=== PATIENT | female | born 1955 | race African-American/Black ===

== ENCOUNTER 2018-06-15 16:28 | Inpatient (IN) | payer MEDICARE, MEDICAID ==
[2018-06-15 17:04] LABS: Base Excess-Venous -2.1 mmol/L (0 (+/- 2.5)); Bicarbonate (HCO3v) 24.5 mmol/L (1.0-85.0); CO2 Tension (PvCO2) 48.4 mmHg (41.0-51.0); Calcium, Ionized 1.48 mmol/L (1.12-1.32); Hemoglobin - Calc 13.8 g/dL (12.0-18.0); Lactate 1.54 mmol/L (0.50-2.20); O2 Tension (PvO2) 55.6 mmHg (35.0-45.0); Potassium 3.6 mmol/L (3.4-4.7); pH (Venous) 7.313 (7.35-7.45); vO2 Saturation-calc 85.4 % (94-98)
[2018-06-15 17:11] LABS: #Basophils 0.1 thou/uL (0.0-0.2); #Eosinphils 0.1 thou/uL (0.0-0.7); #Lymphocytes 1.9 thou/uL (1.20-3.40); #Monocytes 0.3 thou/uL (0.11-0.59); #Neutrophils 3.5 thou/uL (1.40-6.50); %Basophils 0.8 % (0.0-1.0); %Lymphocytes 32.2 % (21.0-51.0); %Monocytes 5.5 % (0.0-10.0); %Neutrophils 59.5 % (42.0-75.0); Hemoglobin 12.8 g/dL (12.0-16.0); Mean Corpuscular HGB CONC 32.7 g/dL (32.0-36.0); Mean Corpuscular Hemoglobin 30.7 pg (27.0-31.0); Mean Corpuscular Volume 93.7 fL (78.0-98.0); Mean Platelet Volume 9.5 fL (7.4-10.4); Platelet Count 223 thou/uL (130-400); RBC Distribution Width 12.9 % (11.5-14.5); Red Blood Cell (RBC) Count 4.19 mill/uL (4.20-5.40); White Blood Cell (WBC) Count 5.9 thou/uL (4.8-10.8)
--- NOTE | 2018-06-15 17:18 | RAD ---
PORTABLE UPRIGHT FRONTAL CHEST RADIOGRAPH: 06/15/18 COMPARISON: 02/26/15 HISTORY: Respiratory distress, shortness of breath. FINDINGS: When compared to the 02/26/15 examination, there is focal increased density in the right perihilar re gion which may signify vascular dilation/engorgement and/or right hilar mass. There is a multilead tr ansvenous AICD inserted via the left sided approach. The cardiac silhouette is prominent. Midline pati rnotomy wires are present. There is hazy air space disease noted in the right lung base/right costoph renic angle, progressed since the prior exam. IMPRESSION: 1. Prominent cardiac silhouette with midline sternotomy wires and transvenous AICD. 2. Focal opacity in right perihilar region may represent vascular structures or underlying right hilar mass. 3. Air space disease noted in right lung base which may signify infectious pneumonitis or aspira tion. Underlying right basilar mass is a possibility. Recommend PA and lateral chest imaging followin g treatment. If opacities persist in the right base and perihilar region, a CT examination would then be advised to assess for a possible underlying neoplastic process. Code T POS: [facility]
[2018-06-15 17:26] LABS: ALT (SGPT) 108 U/L (8-55); AST (SGOT) 142 U/L (5-34); Albumin 3.9 g/dL (3.4-4.8); Alkaline Phosphatase 177 U/L (40-150); Anion Gap 12 mmol/L (10-20); BUN (Urea Nitrogen) 25 mg/dL (9.8-20.1); Bilirubin, Total 0.7 mg/dL (0.2-1.2); Calc. Creatinine Clearance 0 mL/min (70-130); Calcium 10.5 mg/dL (7.8-10.44); Carbon Dioxide 23 mmol/L (23-31); Chloride 110 mmol/L (98-107); Estimated GFR-MDRD 51; Globulin 2.9 g/dL (2.4-3.5); Glucose 164 mg/dL (80-115); Potassium 3.7 mmol/L (3.5-5.1); Protein, Total 6.8 g/dL (6.0-8.3); Sodium 141 mmol/L (136-145)
[2018-06-15 18:21] LABS: CKMB 4.4 ng/mL (0-6.6); Troponin I 0.082 ng/mL (< 0.028)
[2018-06-15] MEDS ORDERED: Furosemide 40 MG/4 ML VIAL ONE (19:23)
[2018-06-15] MEDS ORDERED: Piperacillin/Tazobactam 4.5 GM VIAL ONE (19:23)
[2018-06-15] MEDS ORDERED: Ondansetron PF 4 MG/2 ML Vial IVP PRN (20:14)
[2018-06-15] MEDS ORDERED: Acetaminophen 325 MG TAB PO PRN (20:14)
[2018-06-15] MEDS ORDERED: Ondansetron ODT 4 MG TAB SL PRN (20:14)
[2018-06-15] MEDS ORDERED: Vancomycin HCl 1 GM in Premix Bag 1 BAG IVPB SCH (20:15)
[2018-06-15 21:23] LABS: Troponin I 0.072 ng/mL (< 0.028)
[2018-06-15 21:42] VITALS: BMI 33.5
[2018-06-15 23:45] LABS: Troponin I 0.071 ng/mL (< 0.028)
[2018-06-16] MEDS ORDERED: HumaLOG 300 UNITS/3 ML VIAL SC PRN (10:40)
[2018-06-16] MEDS ORDERED: Dextrose 5% in Water 1,000 ML IV PRN (10:40)
[2018-06-16] MEDS ORDERED: Dextrose 50% Abboject 50 ML SYRINGE IVP PRN (10:40)
[2018-06-16] MEDS ORDERED: Furosemide 40 MG/4 ML VIAL SLOW IVP SCH (10:45)
[2018-06-16] MEDS: Cefepime 1 GM in Sodium Chloride 0.9% 100 ML IVPB SCH ×2 (17:34→22:56)
[2018-06-16] MEDS: metFORMIN 500 MG TAB PO SCH (17:34)
--- NOTE | 2018-06-16 17:45 | RAD ---
FRONTAL AND LATERAL IMAGING OF THE CHEST: 06/16/2018 HISTORY: Congestive heart failure. COMPARISON: 06/15/2018 FINDINGS: The cardiac silhouette is enlarged. Midline sternotomy wires and a multilead AICD is again seen. Th ere is pulmonary vascular congestion, similar when compared to the prior exam. There is hazy density in the right lung base, slightly improved. No large volume pleural effusion. IMPRESSION: Enlarged cardiac silhouette with pulmonary vascular congestion and hazy density in the right base. F indings suggest pulmonary edema. Infectious pneumonitis in the right lung base cannot be excluded. Follow-up imaging to full resolution advised. POS: [facility]
[2018-06-16] MEDS: Atorvastatin Calcium 40 MG TAB PO SCH (21:00)
[2018-06-16] MEDS: guaiFENesin ER 600 MG TAB PO SCH (21:00)
[2018-06-16] MEDS: Carvedilol 3.125 MG TAB PO SCH (21:00)
[2018-06-16] MEDS: Insulin Glargine 14 UNITS in Pre-Filled Syringe 1 EACH SC SCH (21:01)
--- NOTE | 2018-06-16 23:00 | HP ---
DATE OF ADMISSION: 06/15/2018 CHIEF COMPLAINT: Shortness of breath. HISTORY OF PRESENT ILLNESS: Ms. Gale is a 63-year-old -Citizen Of [place] female with past medical history of hypertension, diabetes mellitus, coronary artery disease, CHF, came because of worsening shortness of breath. Patient states she has been feeling bad for about 4 days and she was having shortness of breath and some chest tightness, going on for 4 days that got worse yesterday. To the point, she could not breathe. She claims she is taking all her medications. She did not have any nausea or vomiting. No diaphoresis, no headache, no dizziness. She also had some cough, productive with whitish sputum , but no fever. So, patient came to the emergency room, where she was evaluated , found to be in CHF, received a dose of Lasix. She also was suspected to have some infiltrate in the right lung. She received a dose of Levaquin, vancomycin , and Zosyn. Patient states she was recently in the hospital at [facility]. Currently, patient feels better. PAST MEDICAL HISTORY: 1. Chronic ischemic cardiomyopathy with decreased LV function with ejection fraction of 20%, status post AICD placement in January 2015. History of nonsustained ventricular tachycardia. 2. Diabetes mellitus. 3. Hypertension. 4. Hyperlipidemia. 5. Status post CVA. 6. Coronary artery disease, status post coronary artery bypass graft. 7. History of tobacco abuse. 8. History of nephrolithiasis, status post ureteral stents. 9. History of myocardial infarction. PAST SURGICAL HISTORY: 1. Status post ureteral stents for nephrolithiasis. 2. Status post AICD placement. 3. Status post coronary artery bypass graft. 4. Status post hysterectomy. ALLERGIES: No known drug allergies. CURRENT MEDICATIONS: Patient is on aspirin 81 mg daily, Lipitor 40 mg daily, Coreg 3.125 b.i.d., Lasix 40 mg b.i.d., Mucinex 600 b.i.d., Imdur 20 mg daily, lisinopril 2.5 mg daily, metformin 500 b.i.d., sertraline 50 mg daily, spironolactone 25 mg daily. FAMILY HISTORY: Nothing of interest. SOCIAL HISTORY: She lives with family. No history of smoking. No history of alcohol abuse. REVIEW OF SYSTEMS: Cardiovascular: Has chest tightness and shortness of breath. Respiratory: No fever. Has cough, productive of white sputum. Gastrointestinal: No nausea, vomiting, abdominal pain. Genitourinary: No dysuria or hematuria. Central nervous system: No headache, no dizziness. PHYSICAL EXAMINATION: GENERAL: The patient is alert, awake, oriented x3. VITAL SIGNS: Temperature 98, pulse 90, respirations 20, blood pressure 130/80. HEENT: Head is normocephalic, atraumatic. Pupils are equal and reactive to light. Nasopharynx is pale and dry. Hard and soft palate, no lesions seen. SKIN: Skin turgor decreased. NECK: Supple. No JVD. LUNGS: Breath sounds diminished bilaterally, percussion to dull bilaterally. Basilar rales present. HEART: S1, S2 regular. ABDOMEN: Soft. No distention, no tenderness. Normal bowel sounds. RECTAL: Deferred. CENTRAL NERVOUS SYSTEM: No focal deficits. LABORATORY DATA AND X-RAY FINDINGS: CBC shows WBC 5.9, hemoglobin 12, hematocrit 39, platelets 203. Metabolic panel: Sodium 140, potassium 3.7, chloride 110, CO2 of 23, BUN 26, creatinine 1.2, glucose 164. BNP was 3099. CK -MB is 4.4. Troponin I is 0.08. EKG shows ventricular pacemaker rhythm. Chest x-ray shows CHF changes as well as focal opacity in the right perihilar region and air space disease in the right lung base. ASSESSMENT: 1. Congestive heart failure, acute exacerbation, rule out myocardial infarction. 2. Possible right hilar mass. 3. Right lung base airspace disease. 4. Diabetes mellitus. 5. Hypertension. 6. Status post cerebrovascular accident. 7. Status post automatic implantable cardioverter defibrillator. 8. Coronary artery disease, status post stent. PLAN: 1. Vital signs q.4 hours. 2. Activity: As tolerated. 3. Allergies: NKDA. 4. Diet ADA, cardiac 5. Troponin I q.6 hours x2. 6. Continue home medications. 7. Accu-Chek before meals and at bedtime. Sliding scale mildly with regular insulin. 8. Lasix 40 mg IVP daily. 9. Echocardiogram. 10. We will repeat a chest x-ray, PA and lateral. [facility]
[2018-06-17 05:14] LABS: #Eosinphils 0.1 thou/uL (0.0-0.7); #Lymphocytes 1.3 thou/uL (1.20-3.40); #Monocytes 0.5 thou/uL (0.11-0.59); #Neutrophils 4.5 thou/uL (1.40-6.50); %Basophils 0.6 % (0.0-1.0); %Eosinophils 1.9 % (0.0-10.0); %Lymphocytes 20.8 % (21.0-51.0); %Monocytes 7.1 % (0.0-10.0); %Neutrophils 69.6 % (42.0-75.0); Hemoglobin 12.1 g/dL (12.0-16.0); Mean Corpuscular HGB CONC 31.7 g/dL (32.0-36.0); Mean Corpuscular Volume 94.5 fL (78.0-98.0); Mean Platelet Volume 9.8 fL (7.4-10.4); Platelet Count 207 thou/uL (130-400); RBC Distribution Width 13.1 % (11.5-14.5); Red Blood Cell (RBC) Count 4.04 mill/uL (4.20-5.40); White Blood Cell (WBC) Count 6.4 thou/uL (4.8-10.8)
[2018-06-17 05:21] LABS: Anion Gap 13 mmol/L (10-20); BUN (Urea Nitrogen) 34 mg/dL (9.8-20.1); Calc. Creatinine Clearance 69 mL/min (70-130); Calcium 10.3 mg/dL (7.8-10.44); Carbon Dioxide 22 mmol/L (23-31); Chloride 108 mmol/L (98-107); Estimated GFR-MDRD 44; Glucose 126 mg/dL (80-115); Potassium 4.1 mmol/L (3.5-5.1); Sodium 139 mmol/L (136-145)
[2018-06-17] MEDS: Cefepime 1 GM in Sodium Chloride 0.9% 100 ML IVPB SCH ×4 (05:21→23:36)
[2018-06-17] MEDS: metFORMIN 500 MG TAB PO SCH ×2 (08:26→17:23)
[2018-06-17] MEDS: Spironolactone 25 MG TAB PO SCH (08:26)
[2018-06-17] MEDS: Isosorbide Mononitrate 20 MG TAB PO SCH (08:26)
[2018-06-17] MEDS: Carvedilol 3.125 MG TAB PO SCH ×2 (08:27→21:34)
[2018-06-17] MEDS: Insulin Glargine 14 UNITS in Pre-Filled Syringe 1 EACH SC SCH ×2 (08:27→21:34)
[2018-06-17] MEDS: guaiFENesin ER 600 MG TAB PO SCH ×2 (08:27→21:34)
[2018-06-17] MEDS ORDERED: Lisinopril 2.5 MG TAB PO SCH (09:00)
[2018-06-17] MEDS ORDERED: Furosemide 40 MG/4 ML VIAL SLOW IVP SCH (09:00)
[2018-06-17] MEDS: Atorvastatin Calcium 40 MG TAB PO SCH (21:33)
[2018-06-18] MEDS: Cefepime 1 GM in Sodium Chloride 0.9% 100 ML IVPB SCH (05:33)
[2018-06-18] MEDS: metFORMIN 500 MG TAB PO SCH ×2 (08:20→17:45)
[2018-06-18] MEDS: Spironolactone 25 MG TAB PO SCH (08:20)
[2018-06-18] MEDS: Isosorbide Mononitrate 20 MG TAB PO SCH (08:21)
[2018-06-18] MEDS: guaiFENesin ER 600 MG TAB PO SCH ×2 (08:21→21:28)
[2018-06-18] MEDS: Furosemide 40 MG/4 ML VIAL SLOW IVP SCH ×2 (08:21→14:23)
[2018-06-18] MEDS: Carvedilol 3.125 MG TAB PO SCH ×2 (08:21→21:28)
[2018-06-18] MEDS: Insulin Glargine 14 UNITS in Pre-Filled Syringe 1 EACH SC SCH ×2 (08:26→21:28)
--- NOTE | 2018-06-18 10:12 | CON ---
CARDIOLOGY CONSULTATION DATE OF CONSULTATION: 06/17/2018 PRIMARY MINE CAPTAIN: Dr. Salvador. REASON FOR CONSULTATION: Congestive heart failure and ventricular tachycardia. HISTORY OF PRESENT ILLNESS: Ms. Shira Gale is a pleasant 63-year-old woman with long history of bucky nary artery disease and systolic heart failure, admitted with difficulty breathing. Ms. Gale states that she has been having progressive trouble breathing the last few days, associated with some tightn ess in her chest, but it got a lot worse yesterday. Finally, she went to the emergency room and was found to be in congestive heart failure. She received intravenous Lasix, also thought that she may h ave pneumonia. She has also been started on antibiotics. PAST MEDICAL HISTORY: She has a history of coronary artery disease and has had defibrillator placed as well. The patient, in 2006, had an acute anterior infarction, underwent placement of a [place] 3.0 x 24 mm stent by [employer] position clerk in 08/2017. She presented with chest pain with [address] elevation in the anteroseptal leads. She had emergent stent placement. Later that hospitalizati on, she underwent bypass x5, internal mammary to the LAD, radial to the diagonal, saphenous vein chris t to the obtuse marginal, vein graft to the distal right coronary and right posterior descending in s equence, ejection fraction of 25%. Postoperatively, she did remarkably well. Later, she was followe d for some time by a position clerk in [place]. OUTPATIENT MEDICATIONS: 1. Atorvastatin 40 mg daily. 2. Lisinopril 2.5 mg a day. 3. Aspirin 81 mg a day. 4. Carvedilol 3.125 mg twice a day. 5. Spironolactone 25 mg daily. 6. Lasix 40 mg twice a day. 7. Metformin. 8. Isosorbide. ALLERGIES: None known. SOCIAL HISTORY: No alcohol or tobacco abuse. FAMILY HISTORY: Negative for heart disease at a young age. PHYSICAL EXAMINATION: GENERAL: A pleasant 63-year-old woman in no distress. VITAL SIGNS: Her blood pressure 116/82, pulse 86 regular. HEENT: Eyes, sclerae nonicteric. Mouth, mucous membranes moist. NECK: Supple. No lymphadenopathy. LUNGS: Clear. No wheezing, rales, or rhonchi. CARDIAC: Normal S1, normal S2. There is no murmur, rub, or gallop. ABDOMEN: Obese, nontender. No hepatosplenomegaly. EXTREMITIES: Warm, dry. No clubbing, no cyanosis, no edema. HEMATOLOGIC: No unusual bruising. SKIN: Warm and dry. PERTINENT LABORATORY AND X-RAY FINDINGS: Hemoglobin is 12.1, creatinine is 1.46. Troponin levels we re indeterminate 0.082. Probably related to the heart failure, chest x-ray shows pulmonary vascular congestion. ASSESSMENT: 1. Congestive heart failure, systolic, acute on chronic. 2. Renal insufficiency/renal failure stage 3, estimated GFR is 41. 3. Nonsustained ventricular tachycardia. 4. Previous defibrillator implantation. PLAN: 1. Consideration for changing to Entresto may be a good drug for her. She should be able to obtain it, I believe throught Medicaid. We will stop lisinopril, would need to wait a couple of days until that started. Cannot use SNOW inhibitors with Entresto. 2. Continue intravenous diuretics.
--- NOTE | 2018-06-18 10:21 | CT ---
CT CHEST NONCONTRAST: History: Cough, congestion. Comparison: 02-22-15 FINDINGS: There is re-demonstration of a serpiginous hypodensity which occupies the lower right hemithorax with surrounding pleural based thickening. Adjacent areas of linear parenchymal density indicative of sca r, as well as adjacent prominent pulmonary vessels. This finding is stable to 02-22-15 exam which demo nstrates nearly 3.5 years of size stability which favors a benign process. There is no significant ef fusion or evidence of discrete pneumothorax. Cardiac chambers are enlarged and there is a left side p acing device present with evidence of prior sternotomy. The unenhanced imaged upper abdomen reveals no obvious acute process. Osseous structures are intact. IMPRESSION: Stable serpentine region of opacification of the inferior right hemithorax with greater than 3 years of stability, favoring a benign process. The morphology of this finding favors a vascular process and given the persistent, hypodensity, and absence of obvious enhancement on the prior exam this could r elate to a thrombosed pulmonary varis. A neoplasm is considered less likely given absence of discerna ble growth over the interval time frame. If there is clinical suspicion, as a precautionary measure, a PET CT could be performed to exclude the presence of hypermetabolic activity. POS: OLMAN
[2018-06-18 12:11] LABS: Anion Gap 13 mmol/L (10-20); BUN (Urea Nitrogen) 29 mg/dL (9.8-20.1); Calc. Creatinine Clearance 76 mL/min (70-130); Calcium 10.5 mg/dL (7.8-10.44); Carbon Dioxide 28 mmol/L (23-31); Chloride 106 mmol/L (98-107); Estimated GFR-MDRD 48; Glucose 95 mg/dL (80-115); Potassium 3.8 mmol/L (3.5-5.1); Sodium 143 mmol/L (136-145)
[2018-06-18] MEDS ORDERED: Cefepime 1 GM in Sodium Chloride 0.9% 100 ML IVPB SCH (13:00)
[2018-06-18] MEDS: Atorvastatin Calcium 40 MG TAB PO SCH (21:28)
[2018-06-18] MEDS: Amoxicillin/Potassium Clav 875 MG TAB PO SCH (21:28)
[2018-06-19 05:44] LABS: ALT (SGPT) 43 U/L (8-55); AST (SGOT) 14 U/L (5-34); Albumin 3.6 g/dL (3.4-4.8); Alkaline Phosphatase 127 U/L (40-150); Anion Gap 11 mmol/L (10-20); BUN (Urea Nitrogen) 24 mg/dL (9.8-20.1); Bilirubin, Total 0.9 mg/dL (0.2-1.2); Calc. Creatinine Clearance 90 mL/min (70-130); Calcium 10.4 mg/dL (7.8-10.44); Carbon Dioxide 28 mmol/L (23-31); Chloride 104 mmol/L (98-107); Cholesterol 186 mg/dl (< 200 Desired); Estimated GFR-MDRD 62; Globulin 2.8 g/dL (2.4-3.5); Glucose 76 mg/dL (80-115); HDL Cholesterol 46 mg/dL (>60 Neg Risk); LDL Cholesterol, Calculated 119 mg/dL; Potassium 3.7 mmol/L (3.5-5.1); Protein, Total 6.4 g/dL (6.0-8.3); Sodium 139 mmol/L (136-145); Triglycerides 106 mg/dL (Less than 150)
[2018-06-19] MEDS: Furosemide 40 MG/4 ML VIAL SLOW IVP SCH ×2 (08:07→13:29)
[2018-06-19] MEDS: Insulin Glargine 14 UNITS in Pre-Filled Syringe 1 EACH SC SCH (08:07)
[2018-06-19] MEDS: metFORMIN 500 MG TAB PO SCH ×2 (08:08→16:59)
[2018-06-19] MEDS: Spironolactone 25 MG TAB PO SCH (08:08)
[2018-06-19] MEDS: Isosorbide Mononitrate 20 MG TAB PO SCH (08:08)
[2018-06-19] MEDS: guaiFENesin ER 600 MG TAB PO SCH (08:08)
[2018-06-19] MEDS: Amoxicillin/Potassium Clav 875 MG TAB PO SCH (08:08)
[2018-06-19] MEDS: Carvedilol 3.125 MG TAB PO SCH (08:09)
[2018-06-19] MEDS ORDERED: Sacubitril 24.5 MG/Valsartan 25.5 MG TABLET PO SCH (09:00)
[2018-06-19 11:58] VITALS: TEMP 98.1
[2018-06-19 17:22] VITALS: BP 103/70
[2018-06-19] MEDS ORDERED: Atorvastatin Calcium 40 MG TAB PO SCH (21:00)
== END 2018-06-19 18:43 | disposition home or self-care (01) | DRG 291 ==
LOC: ERS 16:28 → 2NO 19:11
PROVIDERS: ADMIT Internal Medicine; ATTEND Internal Medicine
DX: I13.0 Hypertensive heart and chronic kidney disease with heart failure and stage 1 through stage 4 chronic kidney disease, or unspecified chronic kidney disease (principal); I50.23 Acute on chronic systolic (congestive) heart failure; J18.9 Pneumonia, unspecified organism; I47.2 Ventricular tachycardia; N18.3 Chronic kidney disease, stage 3 (moderate); I25.5 Ischemic cardiomyopathy; I25.10 Atherosclerotic heart disease of native coronary artery without angina pectoris; I25.2 Old myocardial infarction; Z95.1 Presence of aortocoronary bypass graft; Z95.810 Presence of automatic (implantable) cardiac defibrillator; E11.22 Type 2 diabetes mellitus with diabetic chronic kidney disease; E78.5 Hyperlipidemia, unspecified; Z87.891 Personal history of nicotine dependence; Z86.73 Personal history of transient ischemic attack (TIA), and cerebral infarction without residual deficits; Z79.82 Long term (current) use of aspirin; Z79.899 Other long term (current) drug therapy; R91.8 Other nonspecific abnormal finding of lung field; Z79.84 Long term (current) use of oral hypoglycemic drugs
CPT/HCPCS: 36415; 36416; 71045; 71046; 71250; 80048; 80053; 80061; 82330; 82550; 82553; 82803; 83605; 83880; 84484; 85025; 87040; 93005; 93306; 93798; 94660; 94760; 96374; J0692; J1940; J1956; J2543; J3370; J7050

== ENCOUNTER 2018-09-14 01:54 | Inpatient (IN) | payer MEDICARE, MEDICAID ==
[2018-09-14] MEDS ORDERED: Piperacillin/Tazobactam 4.5 GM VIAL ONE ×2 (02:31→09:06)
[2018-09-14 02:37] LABS: #Monocytes 0.6 thou/uL (0.11-0.59); %Eosinophils 0.3 % (0.0-10.0); %Lymphocytes 10.4 % (21.0-51.0); %Monocytes 6.5 % (0.0-10.0); %Neutrophils 82.8 % (42.0-75.0); Hemoglobin 15.1 g/dL (12.0-16.0); Mean Corpuscular HGB CONC 30.9 g/dL (32.0-36.0); Mean Corpuscular Hemoglobin 30.3 pg (27.0-31.0); Mean Platelet Volume 11.2 fL (7.4-10.4); Platelet Count 132 thou/uL (130-400); RBC Distribution Width 15.1 % (11.5-14.5); Red Blood Cell (RBC) Count 4.97 mill/uL (4.20-5.40); White Blood Cell (WBC) Count 9.7 thou/uL (4.8-10.8)
[2018-09-14] MEDS ORDERED: Vancomycin HCl 1.25 GM in Sodium Chloride 0.9% 250 ML 250 ML IVPB SCH (02:45)
[2018-09-14 02:55] LABS: ALT (SGPT) 161 U/L (8-55); AST (SGOT) 85 U/L (5-34); Albumin 3.6 g/dL (3.4-4.8); Alkaline Phosphatase 353 U/L (40-150); Anion Gap 15 mmol/L (10-20); BUN (Urea Nitrogen) 51 mg/dL (9.8-20.1); Bilirubin, Total 1.6 mg/dL (0.2-1.2); Calc. Creatinine Clearance 0 mL/min (70-130); Calcium 11.5 mg/dL (7.8-10.44); Carbon Dioxide 29 mmol/L (23-31); Chloride 101 mmol/L (98-107); Estimated GFR-MDRD 30; Glucose 45 mg/dL (80-115); Potassium 6.3 mmol/L (3.5-5.1); Protein, Total 6.6 g/dL (6.0-8.3); Sodium 139 mmol/L (136-145)
[2018-09-14] MEDS ORDERED: Dextrose 50% Abboject 50 ML SYRINGE ONE (03:03)
[2018-09-14 03:16] LABS: CKMB 3.2 ng/mL (0-6.6)
[2018-09-14] MEDS ORDERED: Furosemide 40 MG/4 ML VIAL ONE (03:29)
[2018-09-14] MEDS ORDERED: Aspirin 325 MG TAB ONE (03:29)
[2018-09-14 04:02] LABS: Anion Gap 14 mmol/L (10-20); BUN (Urea Nitrogen) 50 mg/dL (9.8-20.1); Calc. Creatinine Clearance 0 mL/min (70-130); Carbon Dioxide 25 mmol/L (23-31); Chloride 103 mmol/L (98-107); Estimated GFR-MDRD 31; Glucose 78 mg/dL (80-115); Potassium 5.6 mmol/L (3.5-5.1); Sodium 136 mmol/L (136-145)
[2018-09-14 06:20] LABS: CKMB 3.2 ng/mL (0-6.6)
[2018-09-14 06:22] LABS: Lactic Acid 1.1 mmol/L (0.5-2.2)
--- NOTE | 2018-09-14 09:19 | CT ---
PRELIMINARY REPORT/[facility]/EMERGENTY AFTER-HOURS PROCEDURE CT Angiography Chest With Contrast EXAM DATE/TIME: 09/14/2018 2:25 AM CLINICAL HISTORY: 63 years old, female; Signs and symptoms; Dyspnea; Patient HX: Fitz63 presents from the [facility] for the ev aluation of chest pain and hemoptysis. Patient reports that she ate chicken one week ago and has had mid sternal chest pain since. She states she feels like the chicken is stuck. She also reports coughing up blood starting today. Denies fever. Wears o2 at the [facility] at baseline. No reported fever TECHNIQUE: Axial computed tomographic angiography images of the chest with intravenous contrast using CT angiogr aphy protocol. MIP reconstructed images were created and reviewed. COMPARISON: No relevant prior studies available. FINDINGS: Tubes, catheters and devices: Left subclavian transvenous biventricular pacemaker. Pulmonary arteries: No pulmonary emboli. Aorta: Normal. No aortic aneurysm. No aortic dissection. Thyroid: 2.4 cm hypodense nodule within the left thyroid gland. Lungs: Mild bilateral upper lobe predominant centrilobular emphysema, with chronic obstructive pulmon xuan physiologic changes. Small consolidative opacities within the mid and lower lung zones bilaterall y, the largest within the left lower lobe measuring approximately 4 cm in diameter, possibly multifoc al pneumonia, although metastatic disease could have this appearance. Pleural space: Normal. No pneumothorax. No pleural effusion. Heart: Changes of prior sternotomy and CABG. Mediastinum: Tracheobronchomalacia. Lymph nodes: Calcified subcarinal lymph node, compatible with prior granulomatous disease. Bones/joints: Unremarkable. No acute fracture. Soft tissues: Unremarkable. IMPRESSION: 1. No pulmonary emboli. 2. Small consolidative opacities within the mid and lower lung zones bilaterally, the largest within the left lower lobe measuring approximately 4 cm in diameter, possibly multifocal pneumonia, although metastatic disease could have this appearance. Recommend short-term followup and/or further evaluatio n. Thank you for allowing us to participate in the care of your patient. Dictated and Authenticated by: Jaime Mendoza MD 09/14/2018 3:40 AM Central Time ([place] & [place]) FINAL REPORT EMERGENCY AFTER HOURS CT ANGIOGRAM THORAX WITH IV CONTRAST AND 3D RECONSTRUCTIONS: Date: 09/14/18 HISTORY: Chest pain and hemoptysis. Patient reports sternal chest pain. COMPARISON: 02/22/15. Noncontrast CT thorax dated 04/09/18. IMPRESSION: 1. Streak artifact through the chest secondary to left subclavian AICD device. However, no definitiv e filling defects are seen within the central or segmental pulmonary arteries to suggest a pulmonary embolus at these levels. 2. Thoracic aorta is not opacified. Thoracic aorta is normal in caliber. Vascular calcifications are seen in the coronary arteries, as well as the thoracic aorta. 3. Cardiomegaly. 4. Parenchymal opacity within the right lower lobe, which was also seen on prior exams. Measuring on similar slice, this measures overall similar in size to the prior exam with greatest dimension of 3. 5 cm within the right lower lobe. 5. There are parenchymal opacities seen within the posterior aspects of the lower lobes bilaterally, worrisome for multifocal pneumonia. Metastatic disease cannot be entirely excluded. These opacities were not present on study in 2018. 6. Reflux of contrast into the IVC and hepatic veins, likely related to right heart decompensation. 7. Hypodense nodule left lobe of the thyroid gland, also seen on prior exam. 8. CABG. Findings are in agreement with the preliminary report by Betty. Continued follow-up examination is rec ommended to ensure resolution of the parenchymal opacities at each lung base as noted on the prelimin xuan report. POS: OLMAN
[2018-09-14] MEDS ORDERED: ISOVUE-370 76%-LOCM 1 ML ONE (09:53)
--- NOTE | 2018-09-14 10:02 | RAD ---
FRONTAL VIEW CHEST SERIES: (2 FRONTAL VIEWS PROVIDED) Date: 09/14/18 COMPARISON: 06/16/18. INDICATION: Chest pain. FINDINGS: There is evidence of enlargement of the cardiac silhouette and pulmonary vasculature with bilateral p ulmonary edema. Chest is otherwise grossly stable. IMPRESSION: Decompensated CHF. POS: [facility]
[2018-09-14] MEDS ORDERED: Dextrose 50% Abboject 50 ML SYRINGE IVP PRN (16:24)
[2018-09-14] MEDS ORDERED: Dextrose 5% in Water 1,000 ML IV PRN (16:24)
[2018-09-14] MEDS ORDERED: Diltiazem HCl 125 MG, Admixture Fee 1 EACH in Sodium Chloride 0.9% 100 ML IVPB SCH (16:30)
[2018-09-14] MEDS ORDERED: Furosemide 40 MG/4 ML VIAL SLOW IVP SCH (16:30)
[2018-09-14 17:36] VITALS: BMI 33.2
[2018-09-14] MEDS ORDERED: Piperacillin/Tazobactam 2.25 GM in Sodium Chloride 0.9% 100 ML IVPB SCH (18:00)
[2018-09-14] MEDS ORDERED: Acetaminophen 325 MG TAB PO PRN (19:45)
[2018-09-14 20:33] LABS: Troponin I 0.183 ng/mL (< 0.028)
[2018-09-14] MEDS ORDERED: Digoxin 0.5 MG/2 ML AMP SLOW IVP SCH (21:00)
[2018-09-14] MEDS: Piperacillin/Tazobactam 2.25 GM in Sodium Chloride 0.9% 100 ML IVPB SCH (21:51)
[2018-09-14] MEDS ORDERED: Polyethylene Glycol 3350 17 GM Packet PO PRN (22:04)
[2018-09-14] MEDS ORDERED: PROVENTIL INHALER 6.7 G (200 INHALATIONS) INH PRN (22:05)
[2018-09-14] MEDS ORDERED: Promethazine 25 MG TAB PO PRN (22:07)
[2018-09-14] MEDS ORDERED: Apixaban 5 MG TAB PO SCH (22:15)
[2018-09-14] MEDS ORDERED: Atorvastatin Calcium 40 MG TAB PO SCH (22:15)
--- NOTE | 2018-09-14 23:15 | CON ---
DATE OF CONSULTATION: PRIMARY CARE DOCTOR: Dr. Peralta. PRIMARY AUDIT MGR: Dr. Adams Salvador. REFERRING DOCTOR: Dr. Peralta. REASON FOR CARDIOLOGY CONSULT: Chest pain. HISTORY OF PRESENT ILLNESS: Ms. Gale is a 63-year-old female with significant history of coronary artery disease with stent placement in 2006 and CABG x5 in 2009, AICD placement in 2014, hypertension, hyperlipidemia, diabetes, and stroke x2 in 2012 and in 07/2018. Currently, the patient is in Health system for rehab due to weakness secondary to pneumonia and CVA with left-sided weakness in 07/2018. The patient started having intermittent sharp pain to the left chest for 1 day. The patient was transferred to the emergency department for further evaluation and treatment. The patient denies dizziness, lightheadedness, or numbness to the left upper arm, pressure to the neck at this moment. However, the patient has nauseated, vomiting every time she eat for 2 days. Also, the patient has COPD with home O2 of 2 L nasal cannula at home. At this moment, the patient continues to have chest pain to her chest, but without any other cardiac complaints. The patient had a stent placement in 2006, CABG x5 in 2009 with BENSON to LAD, left radial to diagonal, SVG to OM, SVG to distal RCA, and right posterior descending. The patient had AICD placement in 2014 and according to the patient, she had a generator change last year. The patient's echocardiogram was done in 05/2018 with EF 15% to 20%, severely increased LV size, agenesis of mid and distal septal apex lateral wall and anterior wall, moderate to severe dilated left atrium, mild mitral valve regurgitation, mild aortic valve regurgitation, mild tricuspid regurgitation, moderate elevated RVSP with 40.[address] Treadwell's patient. PATIENT MEDICAL HISTORY: 1. Coronary artery disease. 2. Diabetes. 3. Hypertension. 4. Hyperlipidemia. 5. CVA. 6. History of nephrolithiasis. 7. COPD, on home O2 of 2 L nasal cannula. PAST SURGICAL HISTORY: Stent placement in 2006, CABG x5 in 2009, hysterectomy, urethral stent, and the patient had a stents placement in her legs, unknown size at [facility] before 2012. FAMILY HISTORY: There are significant myocardial infarction in paternal and maternal side. The patient's mother has also had a history of diabetes and hypertension. The patient's father, mother, and her sister has myocardial infarction before age of 60. SOCIAL HISTORY: She is staying at rehab at this moment. Prior to that, she used to live with her sister. She is a . She is an ex-smoker, quit in 2004. She used to smoke 3 to 4 cigarettes a day. Ex EtOH abuse, she quit 4 to 5 years ago. She used to drink 2 to 3 beers daily. She drinks at least 4 sodas a day, one cup of coffee, and at least a glass of water a day. REVIEW OF SYSTEMS: Prior to this admission, a 12-point review of systems negative unless otherwise mentioned in the HPI. PHYSICAL EXAMINATION: VITAL SIGNS: Blood pressure 108/63, temperature 100.9, pulse 86, afebrile, respiratory rate 18, and O2 saturation 99% with 2 L nasal cannula. GENERAL: The patient is alert and oriented x4, not in acute distress, but easy to get respiratory distress with talking. EYES: Extraocular muscle movement intact. ENT and mouth, oral and nasal mucosa moist without lesions. Head is normocephalic, atraumatic. NECK: Supple. Normal range of motion. LUNGS: Very diminished and coarse in the bilateral lobes. The patient is not able to take a deep breath. It is very shallow. CARDIOVASCULAR: Irregular rate and rhythm. No S3 or S4. No significant murmur, heaves, or thrill noted. 2+ pulses in bilateral upper and lower extremities. The patient has a generous edema. Carotid pulses are present without bruits or thrill. ABDOMEN: Soft, nontender. No mass to palpitate. Bowel sounds are present. SKIN: Warm and dry. No rash, lesion, or hematoma noted. MUSCULOSKELETAL: The patient is not able to move left extremities. NEUROLOGIC: The patient is alert and oriented x4. PSYCHIATRIC: The patient's mood is appropriate. The telemetry showed the patient is afebrile, heart rate 80 to 100. LABORATORY DATA: WBC 9.7, hemoglobin 15.1, hematocrit 48.7, and platelets 132. Sodium 136; potassium 5.6, which was 6.3 before; BUN 50, creatinine 1.92, and glucose 78. Lactic acid is 2.3, calcium 11.5. AST 85, ALT 161. Troponin is 0.193, 0.183, 0.216, and 0.183. BNP is more than 4000. The patient's CT chest showing the reflux of contrast into the IVC and hepatic vein likely related to right heart decompensation. The patient's chest x-ray show evidence of enlargement of the cardiac pulmonary vasculature with bilateral pulmonary edema. ASSESSMENT AND PLAN: 1. Acute on chronic systolic heart failure and possible diastolic dysfunction also. At this moment, she is still having quite shortness of breath, possibly due to acute on chronic systolic heart failure and also chronic obstructive pulmonary disease. She is on Lasix 40 mg once a day. For now, I would like to go ahead and order another Lasix for now due to worsening of shortness of breath. She is not on beta-jelena due to severe chronic obstructive pulmonary disease; however, we might have to start a beta-jelena for congestive heart failure. She is not on SNOW inhibitor or ARB at this moment because due to the chronic kidney disease. 2. Atrial fibrillation. Heart rate is stable at this moment with diltiazem drip. She was on Eliquis at home, of which we would like to resume 5 mg once a day from [employer]. We then continued to monitor on the telemetry. 3. Chronic kidney disease. She has elevated creatinine quite a while since 11/2016 according to our [facility] medical record, the patient might need renal consult for her kidney functions. At this moment, we would like to hold SNOW inhibitor and ARB due to the worsening of the kidney function at this moment. 4. Hypertension. The patient's blood pressure is stable at this moment. We would like to continue to monitor. 5. Diabetes. She is on before meals and at bedtime blood glucose check with sliding scale. The patient is on sliding scale insulin order, which is managed by primary care doctor. 6. Hyperlipidemia. We would like to go ahead to resume atorvastatin 40 mg from [employer]. 7. Coronary artery disease with history of stent placement and coronary artery bypass graft x5 in 2009. Her heart condition is stable at this moment. No electrocardiography change at this moment. We would like to continue to monitor. Again, the patient is not on a beta jelena at this moment due to the severe chronic obstructive pulmonary disease and no SNOW inhibitor or ARB due to the worsening of the creatinine level at this moment. 8. History of cerebrovascular accident x2 and the last episode was done in 05/2019. The patient's condition is stable at this moment. We would like to continue to monitor. 9. Elevated LFT, possible due to the compensation of the congestive heart failure. We would like to continue to monitor. 10. Nausea and vomited x2 days. Possible gastroparesis. The patient's condition is stable at this moment. We would like to continue to monitor. Thank you very much for allowing the Cardiology Service to participate in the care of this patient. We will follow the patient's care team and make further recommendations as appropriate. Job ID: [id number]
[2018-09-15 00:43] LABS: Troponin I 0.242 ng/mL (< 0.028)
[2018-09-15] MEDS: Piperacillin/Tazobactam 2.25 GM in Sodium Chloride 0.9% 100 ML IVPB SCH ×4 (05:33→21:53)
[2018-09-15] MEDS: Budesonide 0.25 MG/2 ML NEB NEB SCH ×2 (07:44→19:54)
[2018-09-15] MEDS ORDERED: predniSONE 20 MG TAB PO SCH (08:00)
[2018-09-15 08:12] LABS: Anion Gap 18 mmol/L (10-20); BUN (Urea Nitrogen) 44 mg/dL (9.8-20.1); Calc. Creatinine Clearance 54 mL/min (70-130); Calcium 10.5 mg/dL (7.8-10.44); Carbon Dioxide 21 mmol/L (23-31); Chloride 103 mmol/L (98-107); Estimated GFR-MDRD 33; Glucose 128 mg/dL (80-115); Potassium 5.3 mmol/L (3.5-5.1); Sodium 137 mmol/L (136-145)
[2018-09-15] MEDS ORDERED: Furosemide 40 MG/4 ML VIAL SLOW IVP SCH (09:00)
[2018-09-15] MEDS ORDERED: Furosemide 40 MG TAB PO SCH (09:00)
--- NOTE | 2018-09-15 09:38 | RAD ---
PORTABLE AP CHEST: Date: 09/15/18 HISTORY: Pneumonia, sepsis. COMPARISON: 09/14/18. FINDINGS: A triple lead left subclavian AICD device again noted in place. Postsurgical changes related to media n sternotomy are again present. Cardiac silhouette is enlarged. Parenchymal opacity at the right lung base is again present with mild increased interstitial densities within the mid lung zones bilateral ly. Pulmonary vasculature is mildly increased, but does appear slightly improved from prior study. Os teopenia is present. Vascular calcification seen thoracic aorta. No other interval change. IMPRESSION: 1. Cardiomegaly with borderline increase in pulmonary vasculature suggesting mild CHF. 2. Persistent patchy parenchymal opacity at the right lung base. 3. Mild prominence of interstitial densities which could be based on mild pulmonary edema. POS: [facility]
[2018-09-15] MEDS: HumuLIN 70/30 (300 UNITS/3 ML VIAL) SC SCH ×2 (10:00→16:30)
[2018-09-15 10:01] LABS: Hemoglobin 14.2 g/dL (12.0-16.0); Platelet Count 71 thou/uL (130-400)
[2018-09-15] MEDS: Apixaban 5 MG TAB PO SCH ×2 (10:02→21:53)
[2018-09-15] MEDS: Carvedilol 3.125 MG TAB PO SCH ×2 (10:02→21:52)
[2018-09-15] MEDS: Aspirin 81 mg Enteric Coated Tablet PO SCH (10:02)
[2018-09-15] MEDS: Amiodarone 200 MG TAB PO SCH (10:02)
[2018-09-15] MEDS: guaiFENesin ER 600 MG TAB PO SCH ×2 (10:03→21:53)
[2018-09-15] MEDS: Magnesium Oxide 400 MG TAB PO SCH ×2 (10:03→21:53)
[2018-09-15] MEDS: Docusate 100 MG CAP PO SCH ×2 (10:19→21:53)
--- NOTE | 2018-09-15 15:53 | PDOC.CTH ---
Cardiology Progress Note - Subjective The pt seen and examined. No overnight events. No cardiac complaints. - Objective Vital Signs Temp Pulse Resp BP Pulse Ox 09/15/18 11:21 97.7 F 78 22 H 151/74 H 99 09/15/18 08:05 97.3 F L 92 20 135/76 95 09/15/18 07:46 99 09/15/18 07:44 82 16 99 09/15/18 04:00 98.1 F 75 14 125/68 98 Weight 245 lb 1.6 oz - Physical Examination General/Neuro: alert & oriented x3 Neck: no JVD present Lungs: other: (diminished at bases) Heart: other: (irregular) Abdomen: soft Extremities: other: (generalized edema) - Telemetry Telemetry Rhythm: V paced - Labs Result Diagrams: 09/15/18 09:26 09/16/18 06:33 Troponin/CKMB CK-MB (CK-2) 3.2 ng/mL (0-6.6) 09/14/18 05:25 Troponin I 0.242 ng/mL (< 0.028) H 09/15/18 00:11 - Assessment/Plan 1. Acute on Chronic Systolic HF - Stable with Lasix 40mg IV daily, which will be changed to PO from tomorrow; On Coreg 3.125mg BID, but no on SNOW/ARB due to LIN 2. Afib - rate well controlled; On Amiodarone 200mg qd; will wean off Diltiazem IV due to slightly hypotensive; On Eliquis 5mg BID 3. CAD with hx of CABG x5 in 2009 - stable; on Bblocker, ASA and statin. Not on SNOW/ARB 2/2 CKD 4. Insulin depended DM - managed by PCP 5. Hyperlipidemia - on Statin 6. COPD with Home O2 3LNC - stable 7. Hx of CVA x2 - 8. ischemic CMY with hx of AICD - 9. LIN on CKD - slightly improving MAR reviewed pt.seen and eval.by me.I agree with the A/P by the DEV OPS ENGINEER. Review of Systems - Review of Systems Constitutional: reports: no symptoms reported EENTM: reports: no symptoms reported Respiratory: reports: no symptoms reported Cardiac (ROS): reports: no symptoms reported ABD/GI: reports: no symptoms reported : reports: no symptoms reported Musculoskeletal: reports: no symptoms reported Skin: reports: no symptoms reported Neurological: reports: no symptoms reported
[2018-09-15] MEDS: Atorvastatin Calcium 40 MG TAB PO SCH (21:52)
[2018-09-16] MEDS: Piperacillin/Tazobactam 2.25 GM in Sodium Chloride 0.9% 100 ML IVPB SCH ×4 (06:05→21:31)
[2018-09-16 07:04] LABS: Anion Gap 14 mmol/L (10-20); BUN (Urea Nitrogen) 39 mg/dL (9.8-20.1); Calc. Creatinine Clearance 62 mL/min (70-130); Calcium 10.4 mg/dL (7.8-10.44); Carbon Dioxide 27 mmol/L (23-31); Chloride 103 mmol/L (98-107); Estimated GFR-MDRD 40; Glucose 98 mg/dL (80-115); Potassium 5.2 mmol/L (3.5-5.1); Sodium 139 mmol/L (136-145)
[2018-09-16] MEDS: Budesonide 0.25 MG/2 ML NEB NEB SCH ×2 (07:35→18:42)
[2018-09-16] MEDS ORDERED: predniSONE 20 MG TAB PO SCH (08:00)
[2018-09-16] MEDS: HumuLIN 70/30 (300 UNITS/3 ML VIAL) SC SCH ×2 (09:05→17:35)
[2018-09-16] MEDS: guaiFENesin ER 600 MG TAB PO SCH ×2 (09:06→21:30)
[2018-09-16] MEDS: Magnesium Oxide 400 MG TAB PO SCH ×2 (09:06→21:31)
[2018-09-16] MEDS: Carvedilol 3.125 MG TAB PO SCH ×2 (09:06→21:31)
[2018-09-16] MEDS: Aspirin 81 mg Enteric Coated Tablet PO SCH (09:06)
[2018-09-16] MEDS: Amiodarone 200 MG TAB PO SCH (09:06)
[2018-09-16] MEDS: Furosemide 40 MG/4 ML VIAL SLOW IVP SCH (09:07)
--- NOTE | 2018-09-16 09:11 | HP ---
CHIEF COMPLAINT: Chest pain, cough, hemoptysis, shortness of breath. HISTORY OF PRESENTING ILLNESS: Ms. Gale is a 63-year-old female with past medical history of ischemic cardiomyopathy with history of heart failure, coronary artery disease who is in the rehab and started having chest pain in the retrosternal area, pressure-like, nonradiating associated with some shortness of breath. The patient also has cough with blood for few days, but no fever. The patient recently in the [facility] with [id number] systolic heart failure and she was transferred to rehab as she was not able to ambulate. She was in rehab almost for a month. The patient also, nausea, vomiting, unable to keep anything down. No headache, no dizziness. In the ER, the patient was evaluated to have pneumonia as well as CHF. The patient received Lasix IVP 80 mg as well as antibiotics, Zosyn, Levaquin and vancomycin. The patient was also hypoglycemic and sugar was 49, she was given D50 one ampoule and blood sugar went up to 132. The patient then transferred to the telemetry. The patient stayed in the ER for a period until afternoon, she was transferred to Telemetry. After transfer to the telemetry, the patient was found to be in atrial fibrillation with rapid ventricular rates of 130s to 150s. She was also having some trouble breathing. PAST MEDICAL HISTORY: 1. Diabetes mellitus. 2. Chronic ischemic cardiomyopathy with decreased LV function with ejection fraction of 20%. 3. History of nonsustained ventricular tachycardia. 4. Hypertension. 5. Hyperlipidemia. 6. Status post CVA. 7. Coronary artery disease, status post CABG. 8. Past tobacco abuse. 9. History of nephrolithiasis, status post ureteral stent. 10. Recent admission to [facility] with heart failure, recently in the rehab for unstable gait. PAST SURGICAL HISTORY: 1. Status post AICD placement. 2. Status post coronary artery bypass graft. 3. Status post ureteral stent. ALLERGIES: NKDA. FAMILY HISTORY: nothing significant SOCIAL HISTORY: no h/o of smoking, no h/o alcohol intake. REVIEW OF SYSTEMS: CARDIOVASCULAR: Chest pain, shortness of breath. RESPIRATORY: Cough. No fever. GASTROINTESTINAL: No nausea or vomiting. No abdominal pain symptoms. 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 VITAL SIGNS: Temperature 100.4, pulse 103, respirations 32, blood pressure 130/ 60. HEENT: Pupils are equal and reactive. Nasopharynx is pale and dry. Hard and soft palate, no lesions. SKIN: Turgor is decreased. NECK: Supple. No JVD. LUNGS: Breath sounds diminished bilaterally. Rales present in the bases. Rhonchi present. HEART: S1 and S2 irregularly irregular. ABDOMEN: Soft. No distention. No tenderness. Normal bowel sounds. RECTAL: Deferred. 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 LABORATORY DATA: CBC shows WBC 9.7, hemoglobin 15 and 48, platelets 132. Metabolic panel; sodium 136, potassium 5.6, CO2 25, BUN 50, creatinine 1.95, glucose 78, lactic acid level 2.3, CK-MB 3.2, troponin 0.183. BNP 4190. IMAGING STUDIES: Initial EKG showed atrial fibrillation with rapid ventricular rate. Chest x-ray showed some CHF. CT chest showed infiltrates, parenchymal abscess seen in the both lower lobes. Radiologist commented possible pneumonia. ASSESSMENT: 1. Frytg-ls-soivtfl systolic heart failure. 2. Atrial fibrillation with rapid ventricular rate. 3. Questionable pneumonia. 4. Hypocalcemia. 5. Chronic ischemic cardiomyopathy with decreased left ventricular function, ejection fraction of 15-20%. Echo done in May 2018. 6. Hypertension. 7. Status post cerebrovascular accident. 8. Diabetes mellitus. 9. Hyperlipidemia. PLAN: 1. Activity as tolerated. 2. ALLERGIES: NKDA. 3. Hep-Lock. 4. Cardizem 20 mg IVP x 1 dose, then infusion 5 mL/hour, Lasix 40 IVP x1 dose now and daily. 5. Diet: ADA. 6. Accu-Cheks before meals and at bedtime. Sliding scale mild with regular insulin. 7. Continue home medications. 8. Troponin I q.6 hours x2. 9. Patient is full code. 10. Cardiology consult. 11. The patient is full code. Job ID: [id number] [facility]
[2018-09-16] MEDS: Apixaban 5 MG TAB PO SCH (09:21)
--- NOTE | 2018-09-16 10:00 | CON ---
DATE OF CONSULTATION: 09/14/2018 ADDENDUM: INDICATION FOR CONSULTATION: A 63-year-old female with a long past cardiac history as well as a history of diabetes and renal insufficiency. This very unfortunate lady who is now 63 years old who has had an extensive history for congestive heart failure, coronary artery disease, she had stent placement in 2007. She then had bypass surgery in 2018 at [facility] with 5 vessel bypass. This was done about a year ago with a BENSON to the left anterior descending artery, radial graft to the diagonal branch, and saphenous vein graft to the left circumflex obtuse marginal branch and the distal right coronary artery and also to the distal right PDA. At that time, ejection fraction was 20% to 25%. She also in the past has undergone a defibrillator implant and has actually had an upgrade also of this defibrillator, still has a BiV device. She has been in rehab after she apparently has had some strokes. While in rehab, she complains of some chest discomfort. She has also had increasing shortness of breath and edema. She does have swollen left arm. This may be due to some previous CVA. However, she also has a defibrillator on that side, I do not know whether is or not. She has had some venous thrombosis or subclavian thrombosis causing the left arm edema. The right arm is not edematous, but she does appear to be weak on the left side. At this time, she has complained of some chest discomfort and was admitted to the hospital for rule out myocardial infarction. Her cardiac enzymes are slightly elevated. Most likely, I would consider this to be indeterminate and she does have shortness of breath with edema, and I believe she has been drinking increased fluid. She does appear to be volume overloaded, and most likely this is the etiology, especially with her severe decrease in left ventricular systolic function. Her last echocardiogram showed ejection fraction of less than 20%. She is routinely followed by dependency counselor at [facility]. At this time, she has been given IV Lasix and has put out significant amount of urine almost at least 2 L thus far and is feeling somewhat better, but she is still short of breath to the evaluation. At this time, she denies any further chest pain. For the remainder of past medical history, social history, family history, review of systems, allergies, and medication list, refer to the notes dictated by the nurse practitioner. PHYSICAL EXAMINATION: GENERAL: Reveals a middle-aged obese female who appears to be mildly uncomfortable with somewhat elevated respiratory rate, but otherwise awake, oriented, and pleasant. VITAL SIGNS: Her blood pressure is 108/63, temperature is 100.9, heart rates in the 80s to 100s. She does have underlying atrial fibrillation, but appears to have ventricular pacing, O2 saturation is 99%. HEENT: Head to be normocephalic and atraumatic. Carotid pulses are present. I do not hear any significant bruits at this time. CHEST: She has few bibasilar rales, but no gross rhonchi or rales, otherwise were noted. No wheezing. CARDIOVASCULAR: There is a tachycardia noted. I cannot determine if there is an S1 or S2, but there is a significant elevation in the heart rate. She may have an S3 gallop due to the rapid rate, but most likely this is due to her underlying atrial fibrillation. She does have well-healed surgical incision over the AICD implanted. Left arm is enlarged and does not appear to be any significant edema at this time. Also, the left lower extremity has mild edema and the right side has no edema. ABDOMEN: Shows obesity. Positive bowel sounds are present. I could not elicit any tenderness or any gross masses. EXTREMITIES: No clubbing or cyanosis. Pedal pulses are present. NEUROLOGIC: The patient has suffered a CVA in the past and has left-sided weakness. LABORATORY DATA: Noted as per the nurse practitioner, but most important was the troponin I which was 0.18 and then increased up to a maximum of 0.21, is back down again to 0.18. Her blood sugar was on the low side as low as 53, but now is back up to 135, her potassium was 5.6, and creatinine was 1.95 with a BUN of 50. Her BNP was 4190. WBC of 9.7, hemoglobin of 15.1, and platelet count of 132,000. IMPRESSION: 1. Congestive heart failure exacerbation, most likely brought on by increased fluid intake. We will continue to diurese the patient to see if her renal function actually may improve. If she gets better cardiac output, we will assume the volume overload has improved. We can always repeat her echocardiogram to see if her left ventricular systolic function has changed since her last echocardiogram was performed here. 2. Coronary artery disease. She has had some chest discomfort. I do not know whether or not this may be cardiac related to whether or not this is just due to her volume overload and congestive heart failure exacerbation. She has both, most likely systolic as well as diastolic dysfunction. 3. History of severe cardiomyopathy with AICD implant, has been recently changed out. I suspect this has remained stable. We can actually interrogate the device and see how long she has been in atrial fibrillation. 4. Atrial fibrillation. She is not on any oral anticoagulation. She says that she was on warfarin in the past, but she cannot tell me why this medication has been stopped. She has not been taking it apparently, and her INR, last one was back in May was 1.6, does not appear that she is taking this medication. We would be more than happy to continue to follow the patient. I believe she has been seen here by Dr. Salvador as well as by Dr. Calvin in the past. 5. Chronic kidney disease. This will be dealt with by the primary care service or Nephrology. 6. History of diabetes, also will be dealt with by the primary care service. This is certainly still fluctuating. 7. History of CVA. We will continue to follow this also along with the hospital service. She does have a history of a right middle cerebral artery CVA in the past. Also, she has had a history of myocardial infarction x2, most likely etiology of her severe decrease in left ventricular systolic function. Job ID: [id number]
[2018-09-16] MEDS: Docusate 100 MG CAP PO SCH ×2 (10:50→22:26)
--- NOTE | 2018-09-16 11:32 | PQF ---
FARZANA CARLOS VENKAT R MD [id number] [facility]-295 [id number] CLINICAL DOCUMENTATION IMPROVEMENT CLARIFICATION FORM: ICD-10 Updated PLEASE DO AN ADDENDUM TO THE PROGRESS NOTE WITH ANY DOCUMENTATION UPDATES OR ADDITIONS AND CARRY THROUGH TO DC SUMMARY. THANK YOU. DATE: 09/16/2018 ATTN: DR. Eusebio SMITH Please exercise your independent, professional judgment in responding to the clarification form. Clinical indicators are provided on the bottom of this form for your review. Please check appropriate box(s): [ ] Chronic Respiratory Failure only [ ] with Hypoxia [ ] with Hypercapnia [ ] Hypoxia [ y] Other diagnosis acute on chronic respiratory failure [ ] Unable to determine In addition, please specify: Present on Admission (POA): [ y ] Yes [ ] No [ ] Unable to determine For continuity of documentation, please document condition throughout progress notes and discharge summary. Thank You. CLINICAL INDICATORS - SIGNS / SYMPTOMS / LABS ER PHYSICIAN (09/14) PN: WEARS O2 AT [facility] [place] ATTENDING PN: (09/14) CHIEF COMPLAINT: SOB RISK FACTORS HX OF COPD, WEARS O2 AT [facility] [place] [facility] PN (09/15) PNEUMONIA RLL TREATMENTS: O2 AT 2L/NC (09/14 - PRESENT) RESPIRATORY TX (NEBS, 09/14 - PRESENT) THANK YOU! LAURA (This form is maintained as a part of the permanent medical record) 2014 [employer]. All Rights Reserved Laura del [email or web address] [phone] MTDD
--- NOTE | 2018-09-16 11:52 | PQF ---
FARZANA CARLOS VENKAT R MD [id number] [facility]-295 [id number] CLINICAL DOCUMENTATION IMPROVEMENT CLARIFICATION FORM: ICD-10 Updated PLEASE DO AN ADDENDUM TO THE PROGRESS NOTE WITH ANY DOCUMENTATION UPDATES OR ADDITIONS AND CARRY THROUGH TO DC SUMMARY. THANK YOU. DATE: 09/16/18 ATTN: DR. Rusty SMITH Please exercise your independent, professional judgment in responding to the clarification form. Clinical indicators are provided on the bottom of this form for your review. Please check appropriate box(s): TYPE OF NM: [ ] NSTEMI [ ] AMI Type II [ y ] Demand Ischemia [ ] Other diagnosis [ ] Unable to determine In addition, please specify: Present on Admission (POA): [ y] Yes [ ] No [ ] Unable to determine CLINICAL INDICATORS - SIGNS / SYMPTOMS / LABS LABS: TROPONIN I : 0.193, 0.183, 0.216, 0.183, 0.242 (09/14-09/15) ATTENDING H & P 09/14 : ASSESSMENT : 2) CHEST PAIN, R/O NM RISK: ACUTE ON CHRONIC SYSTOLIC HEART FAILURE ( H&P 09/14) AFIB W RVR ( H & P 09/14) HX OF CAD HX OF HTN TREATMENT: SERIAL CARDIAC ENZYMES (09/14-09/15) CARDIOLOGY CONSULT THANK YOU! LAURA (This form is maintained as a part of the permanent medical record) 2014 [employer], [employer]. All Rights Reserved Laura del [email or web address] [phone] MTDD
[2018-09-16] MEDS ORDERED: Loperamide HCl 2 MG CAP PO PRN (17:16)
[2018-09-16] MEDS ORDERED: Sodium Chloride 0.9% 10 ML ONE (20:30)
[2018-09-16] MEDS: Atorvastatin Calcium 40 MG TAB PO SCH (21:31)
[2018-09-16] MEDS: Insulin Regular 300 UNITS/3 ML VIAL SC PRN (22:26)
[2018-09-17] MEDS: Piperacillin/Tazobactam 2.25 GM in Sodium Chloride 0.9% 100 ML IVPB SCH ×4 (05:06→21:59)
[2018-09-17 06:37] LABS: Anion Gap 15 mmol/L (10-20); BUN (Urea Nitrogen) 35 mg/dL (9.8-20.1); Calc. Creatinine Clearance 73 mL/min (70-130); Carbon Dioxide 26 mmol/L (23-31); Cardiac Risk 2.6 (Less than 4.5); Chloride 103 mmol/L (98-107); Cholesterol 103 mg/dl (< 200 Desired); Estimated GFR-MDRD 50; Glucose 103 mg/dL (80-115); HDL Cholesterol 40 mg/dL (>60 Neg Risk); Hemoglobin 12.9 g/dL (12.0-16.0); LDL Cholesterol, Calculated 44 mg/dL; Mean Corpuscular HGB CONC 31.3 g/dL (32.0-36.0); Mean Corpuscular Hemoglobin 30.1 pg (27.0-31.0); Mean Corpuscular Volume 96.3 fL (78.0-98.0); Mean Platelet Volume 10.5 fL (7.4-10.4); Platelet Count 102 thou/uL (130-400); Potassium 4.9 mmol/L (3.5-5.1); RBC Distribution Width 14.2 % (11.5-14.5); Sodium 139 mmol/L (136-145); Triglycerides 93 mg/dL (Less than 150); White Blood Cell (WBC) Count 6.6 thou/uL (4.8-10.8)
[2018-09-17] MEDS: Budesonide 0.25 MG/2 ML NEB NEB SCH ×2 (07:25→19:01)
[2018-09-17] MEDS ORDERED: predniSONE 20 MG TAB PO SCH (08:00)
[2018-09-17] MEDS ORDERED: predniSONE 5 MG TAB PO SCH (08:00)
[2018-09-17] MEDS: HumuLIN 70/30 (300 UNITS/3 ML VIAL) SC SCH ×2 (08:49→16:15)
[2018-09-17] MEDS: Magnesium Oxide 400 MG TAB PO SCH ×2 (08:50→20:45)
[2018-09-17] MEDS: Docusate 100 MG CAP PO SCH ×2 (08:50→20:46)
[2018-09-17] MEDS: guaiFENesin ER 600 MG TAB PO SCH ×2 (08:50→21:59)
[2018-09-17] MEDS: Carvedilol 3.125 MG TAB PO SCH ×2 (08:50→20:45)
[2018-09-17] MEDS: Aspirin 81 mg Enteric Coated Tablet PO SCH (08:50)
[2018-09-17] MEDS: Amiodarone 200 MG TAB PO SCH ×3 (08:51→20:44)
[2018-09-17] MEDS: Furosemide 40 MG/4 ML VIAL SLOW IVP SCH (08:51)
[2018-09-17] MEDS ORDERED: Digoxin 0.5 MG/2 ML AMP SLOW IVP SCH ×2 (09:30→16:00)
[2018-09-17] MEDS ORDERED: Amiodarone 200 MG TAB PO SCH (09:30)
[2018-09-17 09:31] LABS: Band 1 % (5-11); Eosinophils 2 % (0-10); Lymphocytes 8 % (21-51); MDiff Complete? YES; Neutrophil 82 % (42-75); Platelet Morphology Comment Appears Decreased; RBC Morphology Normal; Reactive Lymphocytes 7 % (0-10)
[2018-09-17] MEDS ORDERED: Apixaban 5 MG TAB PO SCH (10:30)
[2018-09-17] MEDS ORDERED: Calcium Carbonate 500 MG ChewTAB PO PRN (12:26)
[2018-09-17 13:48] LABS: Hemoglobin 13.8 g/dL (12.0-16.0); Platelet Count 115 thou/uL (130-400)
[2018-09-17] MEDS: Insulin Regular 300 UNITS/3 ML VIAL SC PRN (18:08)
[2018-09-17] MEDS: Apixaban 5 MG TAB PO SCH (20:45)
[2018-09-17] MEDS: Atorvastatin Calcium 40 MG TAB PO SCH (20:46)
[2018-09-18] MEDS: Piperacillin/Tazobactam 2.25 GM in Sodium Chloride 0.9% 100 ML IVPB SCH ×4 (03:53→22:04)
[2018-09-18] MEDS: Budesonide 0.25 MG/2 ML NEB NEB SCH ×2 (07:54→18:51)
[2018-09-18] MEDS: Furosemide 40 MG/4 ML VIAL SLOW IVP SCH (08:39)
[2018-09-18] MEDS: Amiodarone 200 MG TAB PO SCH ×3 (08:39→22:03)
[2018-09-18] MEDS: Apixaban 5 MG TAB PO SCH ×2 (08:39→22:02)
[2018-09-18] MEDS: Docusate 100 MG CAP PO SCH ×2 (08:41→22:04)
[2018-09-18] MEDS: Carvedilol 3.125 MG TAB PO SCH ×3 (08:41→22:04)
[2018-09-18] MEDS: Aspirin 81 mg Enteric Coated Tablet PO SCH (08:41)
[2018-09-18] MEDS: guaiFENesin ER 600 MG TAB PO SCH ×2 (08:41→22:02)
[2018-09-18] MEDS: Magnesium Oxide 400 MG TAB PO SCH ×2 (08:43→22:03)
[2018-09-18] MEDS ORDERED: Digoxin 0.125 MG TAB PO SCH (09:00)
[2018-09-18] MEDS: HumuLIN 70/30 (300 UNITS/3 ML VIAL) SC SCH ×2 (11:09→17:27)
[2018-09-18] MEDS: Atorvastatin Calcium 40 MG TAB PO SCH (22:03)
[2018-09-18] MEDS: Ondansetron PF 4 MG/2 ML Vial IVP PRN (22:14)
[2018-09-19] MEDS: Piperacillin/Tazobactam 2.25 GM in Sodium Chloride 0.9% 100 ML IVPB SCH ×4 (03:59→21:59)
[2018-09-19 04:52] LABS: Anion Gap 12 mmol/L (10-20); BUN (Urea Nitrogen) 26 mg/dL (9.8-20.1); Calc. Creatinine Clearance 55 mL/min (70-130); Calcium 10.5 mg/dL (7.8-10.44); Carbon Dioxide 31 mmol/L (23-31); Chloride 102 mmol/L (98-107); Estimated GFR-MDRD 37; Glucose 147 mg/dL (80-115); Potassium 4.6 mmol/L (3.5-5.1); Sodium 140 mmol/L (136-145)
[2018-09-19 04:55] LABS: #Basophils 0.1 thou/uL (0.0-0.2); #Eosinphils 0.2 thou/uL (0.0-0.7); #Lymphocytes 0.6 thou/uL (1.20-3.40); #Monocytes 0.5 thou/uL (0.11-0.59); #Neutrophils 4.6 thou/uL (1.40-6.50); %Basophils 1.3 % (0.0-1.0); %Eosinophils 2.9 % (0.0-10.0); %Lymphocytes 9.4 % (21.0-51.0); %Monocytes 7.9 % (0.0-10.0); %Neutrophils 78.5 % (42.0-75.0); Hemoglobin 14.1 g/dL (12.0-16.0); Mean Corpuscular HGB CONC 30.1 g/dL (32.0-36.0); Mean Corpuscular Hemoglobin 29.3 pg (27.0-31.0); Mean Corpuscular Volume 97.4 fL (78.0-98.0); Mean Platelet Volume 10.7 fL (7.4-10.4); Platelet Count 117 thou/uL (130-400); RBC Distribution Width 14.3 % (11.5-14.5); Red Blood Cell (RBC) Count 4.81 mill/uL (4.20-5.40); White Blood Cell (WBC) Count 5.9 thou/uL (4.8-10.8)
[2018-09-19 05:40] LABS: Digoxin 2.39 ng/mL (0.8-2.0)
[2018-09-19] MEDS: Budesonide 0.25 MG/2 ML NEB NEB SCH ×2 (07:31→19:28)
[2018-09-19] MEDS: Apixaban 5 MG TAB PO SCH ×2 (09:49→21:42)
[2018-09-19] MEDS: Amiodarone 200 MG TAB PO SCH ×3 (09:49→21:42)
[2018-09-19] MEDS: Docusate 100 MG CAP PO SCH ×2 (09:49→21:56)
[2018-09-19] MEDS: Magnesium Oxide 400 MG TAB PO SCH ×2 (09:49→21:42)
[2018-09-19] MEDS: Aspirin 81 mg Enteric Coated Tablet PO SCH (09:49)
[2018-09-19] MEDS: guaiFENesin ER 600 MG TAB PO SCH ×2 (09:51→21:50)
[2018-09-19] MEDS: Furosemide 40 MG/4 ML VIAL SLOW IVP SCH (09:51)
[2018-09-19] MEDS: Carvedilol 3.125 MG TAB PO SCH ×3 (10:07→21:43)
[2018-09-19 12:07] LABS: Hemoglobin 14.2 g/dL (12.0-16.0); Platelet Count 124 thou/uL (130-400)
--- NOTE | 2018-09-19 20:42 | CT ---
CHEST CT NONCONTRAST: 09/19/18 COMPARISON: 09/14/18 CT thorax exam. CLINICAL INDICATION: Chest pain, hemoptysis. FINDINGS: Redemonstration of multifocal bilateral consolidation, which favors atypical pneumonia. Degree of opa city has progressed. There is no significant pleural fluid. The cardiac chambers are enlarged. No pne umothorax. Limited evaluation of the soft tissues including vasculature and lymph nodes on the basis of a noncontrast technique. Streak artifact from indwelling cardiac pacing device is seen. This does limit visualization of the chest. Redemonstration of serpentine opacity of the right lower lung zone. There are borderline sized lymph nodes of the chest, incompletely evaluated on the basis of noncont rast imaging. No acute osseous pathology is visualized. IMPRESSION: Progressive multifocal bilateral opacities favoring atypical pneumonia. Given the nodular component, followup to complete resolution is warranted to in order to exclude underlying neoplastic process. Code T POS: ELLY
[2018-09-19] MEDS: Atorvastatin Calcium 40 MG TAB PO SCH (21:43)
[2018-09-20] MEDS: Piperacillin/Tazobactam 2.25 GM in Sodium Chloride 0.9% 100 ML IVPB SCH (03:56)
[2018-09-20] MEDS: Amiodarone 200 MG TAB PO SCH ×3 (08:41→21:32)
[2018-09-20] MEDS: Furosemide 40 MG/4 ML VIAL SLOW IVP SCH (08:42)
[2018-09-20] MEDS: Docusate 100 MG CAP PO SCH ×2 (08:54→21:31)
[2018-09-20] MEDS: Ondansetron PF 4 MG/2 ML Vial IVP PRN (10:17)
[2018-09-20] MEDS: Budesonide 0.25 MG/2 ML NEB NEB SCH ×2 (10:32→19:01)
[2018-09-20] MEDS ORDERED: PROPOFOL 20 ML ONE (12:10)
[2018-09-20] MEDS ORDERED: PROPOFOL 200 MG/20 ML VIAL ONE (14:23)
[2018-09-20] MEDS: guaiFENesin ER 600 MG TAB PO SCH ×2 (14:36→21:32)
[2018-09-20] MEDS: Apixaban 5 MG TAB PO SCH ×2 (14:39→21:31)
[2018-09-20] MEDS: Aspirin 81 mg Enteric Coated Tablet PO SCH (14:39)
[2018-09-20] MEDS: Magnesium Oxide 400 MG TAB PO SCH ×2 (14:40→21:33)
[2018-09-20] MEDS: Cefepime 1 GM in Sodium Chloride 0.9% 100 ML IVPB SCH ×2 (14:54→21:33)
[2018-09-20] MEDS: Carvedilol 6.25 MG TAB PO SCH (17:54)
[2018-09-20] MEDS: Atorvastatin Calcium 40 MG TAB PO SCH (21:32)
[2018-09-21] MEDS: Cefepime 1 GM in Sodium Chloride 0.9% 100 ML IVPB SCH ×3 (05:22→22:41)
[2018-09-21] MEDS: Budesonide 0.25 MG/2 ML NEB NEB SCH ×2 (07:56→18:38)
[2018-09-21] MEDS: Furosemide 40 MG TAB PO SCH (08:33)
[2018-09-21] MEDS: Aspirin 81 mg Enteric Coated Tablet PO SCH (08:33)
[2018-09-21] MEDS: Magnesium Oxide 400 MG TAB PO SCH ×2 (08:33→21:18)
[2018-09-21] MEDS: Amiodarone 200 MG TAB PO SCH (08:34)
[2018-09-21] MEDS: Apixaban 5 MG TAB PO SCH ×2 (08:34→21:18)
[2018-09-21] MEDS: Carvedilol 6.25 MG TAB PO SCH ×2 (08:34→18:09)
[2018-09-21] MEDS: Docusate 100 MG CAP PO SCH ×2 (08:35→21:17)
[2018-09-21] MEDS: guaiFENesin ER 600 MG TAB PO SCH ×2 (08:35→21:19)
[2018-09-21 11:53] LABS: Hemoglobin 13.8 g/dL (12.0-16.0); Platelet Count 136 thou/uL (130-400)
--- NOTE | 2018-09-21 12:55 | PDOC.PN ---
- Subjective Encounter Start Date: 09/21/18 Encounter Start Time: 07:00 Subjective: sob+, no chest pain - Objective MAR Reviewed: Yes Vital Signs & Weight: Vital Signs (12 hours) Temp Pulse Resp BP Pulse Ox 09/21/18 09:38 134/76 09/21/18 08:28 98.2 F 77 18 184/98 H 97 09/21/18 07:56 78 16 96 09/21/18 05:26 145/93 H 09/21/18 04:00 98.0 F 78 20 142/102 H 93 L Weight Weight 221 lb 8 oz I&O: 09/20/18 09/21/18 09/22/18 06:59 06:59 06:59 Intake Total 1940 1980 Output Total 1220 1600 Balance 720 380 Result Diagrams: 09/21/18 11:41 09/21/18 11:40 Additional Labs: Accuchecks 09/21/18 09/20/18 09/20/18 05:44 20:31 16:52 POC Glucose 107 176 H 209 H Phys Exam - Physical Examination HEENT: PERRLA, moist MMs Neck: no JVD, supple Respiratory: no wheezing, no rales Cardiovascular: RRR, no significant murmur Gastrointestinal: soft, non-tender, positive bowel sounds Musculoskeletal: no edema, pulses present Neurological: non-focal has left hemiparesis worse in upper Psychiatric: normal affect, A&O x 3 Dx/Plan (1) Acute exacerbation of CHF (congestive heart failure) Code(s): I50.9 - HEART FAILURE, UNSPECIFIED Status: Acute Qualifiers: Heart failure type: systolic Qualified Code(s): I50.23 - Acute on chronic systolic (congestive) heart failure Comment: ef of 15%, class 4 (2) PNA (pneumonia) Code(s): J18.9 - PNEUMONIA, UNSPECIFIED ORGANISM Status: Acute Qualifiers: Pneumonia type: due to unspecified organism Laterality: bilateral (3) LIN (acute kidney injury) Code(s): N17.9 - ACUTE KIDNEY FAILURE, UNSPECIFIED Status: Acute (4) CAD (coronary artery disease) Code(s): I25.10 - ATHSCL HEART DISEASE OF [place] CORONARY ARTERY W/O ANG PCTRS Status: Chronic Qualifiers: Coronary Disease-Associated Artery/Lesion type: bypass graft [place] vs. 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 PT to mobilize as tolerated * . Review of Systems - Medications/Allergies Allergies/Adverse Reactions: Allergies Allergy/AdvReac Type Severity Reaction Status Date / Time No Known Allergies Allergy Verified 06/15/18 21:40 Medications: Current Medications Acetaminophen (Tylenol) 650 mg PO Q4H PRN PRN Reason: Headache/Fever or Pain Last Admin: 09/14/18 20:17 Dose: 650 mg Albuterol Sulfate (Proventil Hfa) 1 puff INH Q6H PRN PRN Reason: SOB/WHEEZE Amiodarone HCl (Cordarone) 200 mg PO DAILY [facility] Last Admin: 09/21/18 08:34 Dose: 200 mg Apixaban (Eliquis) 5 mg PO BID [facility] Last Admin: 09/21/18 08:34 Dose: 5 mg Aspirin (Ecotrin) 81 mg PO DAILY [facility] Last Admin: 09/21/18 08:33 Dose: 81 mg Atorvastatin Calcium (Lipitor) 40 mg PO HS [facility] Last Admin: 09/20/18 21:32 Dose: 40 mg Budesonide (Pulmicort Neb Solution) 0.25 mg NEB BID-RT [facility] Last Admin: 09/21/18 07:56 Dose: 0.25 mg Calcium Carbonate (Tums) 1,000 mg PO Q4H PRN PRN Reason: HEARTBURN Last Admin: 09/17/18 15:48 Dose: 1,000 mg Carvedilol (Coreg) 6.25 mg PO BID-WM [facility] Last Admin: 09/21/18 08:34 Dose: 6.25 mg Dextrose/Water (Dextrose 50%) 25 gm IVP PRN PRN PRN Reason: HYPOGLYCEMIA PROTOCOL Docusate Sodium (Colace) 100 mg PO BID [facility] Last Admin: 09/21/18 08:35 Dose: Not Given Furosemide (Lasix) 40 mg PO DAILY-AC [facility] Last Admin: 09/21/18 08:33 Dose: 40 mg Glucagon (Glucagon) 1 mg IM PRN PRN PRN Reason: HYPOGLYCEMIA PROTOCOL Guaifenesin (Mucinex) 600 mg PO Q12HR [facility] Last Admin: 09/21/18 08:35 Dose: 600 mg Dextrose/Water (D5w) 1,000 mls @ 0 mls/hr IV INF PRN PRN Reason: HYPOGLYCEMIA PROTOCOL Cefepime HCl 1 gm/ Sodium (Chloride) 100 mls @ 200 mls/hr IVPB Q8HR [facility] Last Admin: 09/21/18 05:22 Dose: 100 mls Insulin Human Regular (Humulin R) 0 units SC .MILD SLIDING PRN; Protocol PRN Reason: MILD SLIDING SCALE Last Admin: 09/17/18 18:08 Dose: 2 unit Isosorbide Mononitrate (Imdur Er) 30 mg PO DAILY [facility] Last Admin: 09/21/18 08:33 Dose: 30 mg Magnesium Oxide (Magnesium Oxide) 400 mg PO BID [facility] Last Admin: 09/21/18 08:33 Dose: 400 mg Ondansetron HCl (Zofran) 8 mg IVP Q8H PRN PRN Reason: Nausea/Vomiting Last Admin: 09/20/18 10:17 Dose: 8 mg Polyethylene Glycol (Miralax) 17 gm PO DAILY PRN PRN Reason: CONSTIPATION Promethazine HCl (Phenergan) 12.5 mg PO Q12H PRN PRN Reason: Nausea Sertraline HCl (Zoloft) 50 mg PO DAILY [facility] Last Admin: 09/21/18 08:34 Dose: 50 mg Sodium Chloride (Flush - Normal Saline) 10 ml IVF PRN PRN PRN Reason: Saline Flush Last Admin: 09/21/18 08:36 Dose: 10 ml
--- NOTE | 2018-09-21 16:57 | PDOC.CTH ---
Cardiology Progress Note - Subjective No new issues. Mild improvement today. - Objective Vital Signs Temp Pulse Pulse Pulse Resp BP BP 09/21/18 12:18 97.6 F 69 16 09/21/18 12:01 79 69 167/85 H 141/83 H 09/21/18 09:38 09/21/18 08:28 98.2 F 77 18 09/21/18 07:56 78 16 09/21/18 05:26 BP Pulse Ox 09/21/18 12:18 145/85 H 95 09/21/18 12:01 09/21/18 09:38 134/76 09/21/18 08:28 184/98 H 97 09/21/18 07:56 96 09/21/18 05:26 145/93 H Weight 221 lb 8 oz 09/20/18 09/21/18 09/22/18 06:59 06:59 06:59 Intake Total 1940 1980 Output Total 1220 1600 Balance 720 380 - Physical Examination General/Neuro: NAD Neck: no JVD present Lungs: CTA, unlabored respirations Heart: RRR Abdomen: NT/ND Extremities: other: (no edema) - Telemetry Telemetry Rhythm: NSR - Labs Result Diagrams: 09/21/18 11:41 09/21/18 11:40 Troponin/CKMB CK-MB (CK-2) 3.2 ng/mL (0-6.6) 09/14/18 05:25 Troponin I 0.242 ng/mL (< 0.028) H 09/15/18 00:11 - Assessment/Plan 1. Acute on Chronic Systolic HF 2. Afib, s/p DCCV. Currently in sinus. 3. CAD with hx of CABG x5 4. Insulin depended DM 5. Hyperlipidemia 6. COPD with Home O2 3LNC 7. Hx of CVA x2 8. ischemic CMY. 9. LIN on CKD - slightly improving 10 S/P AICD. PLAN: - Continue PO lasix. - CV stable, no new recs.
--- NOTE | 2018-09-21 18:51 | ECHO ---
INDICATION: The patient is a 63-year-old woman with paroxysmal atrial fibrillation. DESCRIPTION OF PROCEDURE: The patient was taken to the PACU. The patient was sedated by anesthesiology. A transesophageal pro be was placed into the distal esophagus and stomach. Echocardiographic images were obtained. The tr ansesophageal probe was removed. FINDINGS: 1. Severe decrease in left ventricular systolic function. 2. Left atrial enlargement. 3. Left ventricle is moderately dilated. 4. Moderate mitral regurgitation. 5. Mild tricuspid regurgitation. 6. Spontaneous contrast in the left atrium and left atrial appendage. 7. No formed thrombus in atrium or left atrial appendage. 8. Atherosclerotic debris in the descending aorta. IMPRESSION: Spontaneous contrast in the left atrium with no formed thrombus noted.
[2018-09-21] MEDS: Atorvastatin Calcium 40 MG TAB PO SCH (21:19)
[2018-09-22] MEDS: Cefepime 1 GM in Sodium Chloride 0.9% 100 ML IVPB SCH ×2 (05:17→15:41)
[2018-09-22] MEDS: Budesonide 0.25 MG/2 ML NEB NEB SCH ×2 (08:45→18:53)
[2018-09-22] MEDS: Apixaban 5 MG TAB PO SCH ×2 (09:18→20:52)
[2018-09-22] MEDS: Furosemide 40 MG TAB PO SCH (09:18)
[2018-09-22] MEDS: Aspirin 81 mg Enteric Coated Tablet PO SCH (09:18)
[2018-09-22] MEDS: guaiFENesin ER 600 MG TAB PO SCH ×2 (09:18→20:52)
[2018-09-22] MEDS: Magnesium Oxide 400 MG TAB PO SCH ×2 (09:18→20:53)
[2018-09-22] MEDS: Docusate 100 MG CAP PO SCH ×2 (09:19→20:52)
[2018-09-22] MEDS: Amiodarone 200 MG TAB PO SCH (09:19)
[2018-09-22] MEDS: Carvedilol 6.25 MG TAB PO SCH ×2 (09:19→18:25)
--- NOTE | 2018-09-22 15:41 | PDOC.PN ---
- Subjective Encounter Start Date: 09/22/18 Encounter Start Time: 15:30 Subjective: f/u for CHF on current po Lasix with EF 15%. States feeling better and -: weight loss of 28lbs since admit. Ambulating short distances with RW. - Objective MAR Reviewed: Yes Vital Signs & Weight: Vital Signs (12 hours) Temp Pulse Resp BP BP Pulse Ox 09/22/18 11:18 97.2 F L 67 16 144/80 H 95 09/22/18 09:19 168/84 H 09/22/18 08:45 72 16 96 09/22/18 08:04 97.3 F L 81 16 156/88 H 98 09/22/18 03:49 98.5 F 81 18 156/94 H 95 Weight Weight 217 lb 8 oz I&O: 09/21/18 09/22/18 09/23/18 06:59 06:59 06:59 Intake Total 1980 850 Output Total 1600 600 Balance 380 250 Result Diagrams: 09/21/18 11:41 09/21/18 11:40 Additional Labs: Accuchecks 09/22/18 09/22/18 09/21/18 10:58 05:03 20:29 POC Glucose 126 H 84 113 H 09/21/18 17:09 POC Glucose 157 H Microbiology 09/16/18 09:35 Stool C. difficile GDH Antigen & Toxins - Final 09/14/18 03:10 Venous blood - Right Hand Blood Culture - Final NO GROWTH IN 5 DAYS 09/14/18 03:10 Venous blood - Left Arm Blood Culture - Final NO GROWTH IN 5 DAYS Laboratory Tests 09/15/18 09/17/18 09/17/18 09:26 06:13 13:25 Plt Count 71 L 102 L Creatinine 1.68 H 09/17/18 09/19/18 09/19/18 13:25 04:33 04:33 Plt Count 115 L 117 L Creatinine 1.69 H 09/19/18 09/19/18 11:44 11:44 Plt Count 124 L Creatinine 1.59 H EKG Reviewed by me: Yes (Tele - A-V pacing in 70's) Phys Exam - Physical Examination Constitutional: NAD HEENT: PERRLA, sclera anicteric, oral pharynx no lesions Neck: no nodes, no JVD, supple, full ROM diminished in bases Respiratory: no wheezing, no rales, no rhonchi, clear to auscultation bilateral S1, S2 heart sounds distant Cardiovascular: RRR, no rub, gallop Gastrointestinal: soft, non-tender, no distention, positive bowel sounds Musculoskeletal: pulses present, edema present L-sided weakness, hemiparesis Neurological: normal sensation Psychiatric: A&O x 3 Skin: normal turgor, cap refill <2 seconds Dx/Plan (1) Acute exacerbation of CHF (congestive heart failure) Code(s): I50.9 - HEART FAILURE, UNSPECIFIED Status: Acute Qualifiers: Heart failure type: systolic Qualified Code(s): I50.23 - Acute on chronic systolic (congestive) heart failure Comment: ef of 15%, class 4, dyspnea improved, continue Lasix 40mg daily, ASA, Lipitor, Coreg (2) PNA (pneumonia) Code(s): J18.9 - PNEUMONIA, UNSPECIFIED ORGANISM Status: Acute Qualifiers: Pneumonia type: due to unspecified organism Laterality: bilateral Comment: Suspected, transition to Omnicef 300mg BID (3) LIN (acute kidney injury) Code(s): N17.9 - ACUTE KIDNEY FAILURE, UNSPECIFIED Status: Acute Comment: Improving, avoid nephrotoxic meds and limit contrast exposure (4) DM type 2 (diabetes mellitus, type 2) Status: Chronic Qualifiers: Diabetes mellitus prison insulin use: with exterminator use Diabetes mellitus complication status: with unspecified complications Qualified Code(s) : E11.8 - Type 2 diabetes mellitus with unspecified complications; 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 social media & mobile manager, out of bed/ambulate Stable overall -: D/C Cefepime -: Start Omnicef 300mg BID -: Continue Eliquis 5mg BID -: AM lab: BMP, H/H * .
[2018-09-22] MEDS ORDERED: Saccharomyces boulardii 250 MG CAP PO SCH (16:00)
--- NOTE | 2018-09-22 17:26 | PDOC.CTH ---
Cardiology Progress Note - Subjective No new issues. Doing well. - Objective Vital Signs Temp Pulse Resp BP BP Pulse Ox 09/22/18 15:05 98.1 F 66 16 153/79 H 98 09/22/18 11:18 97.2 F L 67 16 144/80 H 95 09/22/18 09:19 168/84 H 09/22/18 08:45 72 16 96 09/22/18 08:04 97.3 F L 81 16 156/88 H 98 Weight 217 lb 8 oz 09/21/18 09/22/18 09/23/18 06:59 06:59 06:59 Intake Total 1980 850 Output Total 1600 600 Balance 380 250 - Physical Examination General/Neuro: alert & oriented x3, NAD Neck: no JVD present Lungs: unlabored respirations Heart: RRR Abdomen: NT/ND Extremities: + edema B (1+) - Telemetry Telemetry Rhythm: NSR, Vpaced. - Labs Result Diagrams: 09/21/18 11:41 09/21/18 11:40 Troponin/CKMB CK-MB (CK-2) 3.2 ng/mL (0-6.6) 09/14/18 05:25 Troponin I 0.242 ng/mL (< 0.028) H 09/15/18 00:11 - Assessment/Plan 1. Acute on Chronic Systolic HF 2. Afib, s/p DCCV. Currently in sinus. 3. CAD with hx of CABG x5 4. Insulin depended DM 5. Hyperlipidemia 6. COPD with Home O2 3LNC 7. Hx of CVA x2 8. ischemic CMY. 9. LIN on CKD - slightly improving 10 S/P AICD. PLAN: - Continue PO lasix. - CV stable, no new recs.
[2018-09-22] MEDS: Atorvastatin Calcium 40 MG TAB PO SCH (20:52)
[2018-09-22] MEDS: Cefdinir 300 MG CAP PO SCH (20:52)
[2018-09-23] MEDS: Budesonide 0.25 MG/2 ML NEB NEB SCH ×2 (07:09→18:35)
[2018-09-23] MEDS: Aspirin 81 mg Enteric Coated Tablet PO SCH (08:45)
[2018-09-23] MEDS: Furosemide 40 MG TAB PO SCH (08:45)
[2018-09-23] MEDS: Carvedilol 6.25 MG TAB PO SCH ×2 (08:45→18:09)
[2018-09-23] MEDS: Amiodarone 200 MG TAB PO SCH (08:45)
[2018-09-23] MEDS: Apixaban 5 MG TAB PO SCH ×2 (08:45→20:33)
[2018-09-23] MEDS: Docusate 100 MG CAP PO SCH ×2 (08:46→20:34)
[2018-09-23] MEDS: guaiFENesin ER 600 MG TAB PO SCH ×2 (08:46→20:33)
[2018-09-23] MEDS: Saccharomyces boulardii 250 MG CAP PO SCH (08:46)
[2018-09-23] MEDS: Cefdinir 300 MG CAP PO SCH ×2 (08:46→20:33)
[2018-09-23] MEDS: Magnesium Oxide 400 MG TAB PO SCH ×2 (08:46→20:34)
[2018-09-23 11:27] LABS: Hemoglobin 13.9 g/dL (12.0-16.0); Platelet Count 130 thou/uL (130-400)
--- NOTE | 2018-09-23 14:03 | PQF ---
FARZANA CARLOS VENKAT R MD [id number] [facility]295 [id number] CLINICAL DOCUMENTATION IMPROVEMENT CLARIFICATION FORM: ICD-10 Updated PLEASE DO AN ADDENDUM TO THE PROGRESS NOTE WITH ANY DOCUMENTATION UPDATES OR ADDITIONS AND CARRY THROUGH TO DC SUMMARY. THANK YOU. DATE: 09/23/2018 ATTN:DR. Eusebio SMITH Please exercise your independent, professional judgment in responding to the clarification form. Clinical indicators are provided on the bottom of this form for your review. Please check appropriate box(s): [y ] Empirically treating Gram Negative Pneumonia [ ] Pneumonia secondary to (specify organism / underlying disease) [ ] Simple Pneumonia (community acquired - nosocomial) [ ] Pneumonia Ruled Out [ ] Other diagnosis [ ] Unable to determine In addition, please specify: Present on Admission (POA): [ y] Yes [ ] No [ ] Unable to determine For continuity of documentation, please document condition throughout progress notes and discharge summary. Thank You. CLINICAL INDICATORS - SIGNS / SYMPTOMS / LABS ED : 09/14 DX : PNEUMONIA, SEPSIS H & P: 09/14 (LUIS) HANDWRITTEN 1) PNEUMONIA RLL PN 09/15 (LUIS) 5) PNEUMONIA RLL 09/20 (LUIS) 3) ATYPICAL PNEUMONIA PN 09/21 (BRIANDA) DX/PLAN: 2) PNEUMONIA, ACUTE BILATERAL, UNSPECIFIED ORGANISM PN 09/22 (SHANNON) DX/PLAN 2) PNEUMONIA, ACUTE BILATERAL , UNSPECIFIED ORGANISM- SUSPECTED PN 09/23 (JOSE) 8) ? PNEUMONIA RISK: SOB ACUTE ON CHRONIC RESP FAILURE ABNORMAL CTA OF CHEST TREATMENTS: ZOSYN IV (09/14-09/20) CEFEPIME IV (09/20-09/22) THANK YOU ! GLENNA (This form is maintained as a part of the permanent medical record) 2014 [employer]. All Rights Reserved [email or web address] [phone] MTDD
[2018-09-23] MEDS: Atorvastatin Calcium 40 MG TAB PO SCH (20:33)
[2018-09-24] MEDS: Budesonide 0.25 MG/2 ML NEB NEB SCH (05:51)
[2018-09-24] MEDS: Furosemide 40 MG TAB PO SCH (08:58)
[2018-09-24] MEDS: Carvedilol 6.25 MG TAB PO SCH (08:58)
[2018-09-24] MEDS: Amiodarone 200 MG TAB PO SCH (08:59)
[2018-09-24] MEDS: Apixaban 5 MG TAB PO SCH (08:59)
[2018-09-24] MEDS: Aspirin 81 mg Enteric Coated Tablet PO SCH (08:59)
[2018-09-24] MEDS: guaiFENesin ER 600 MG TAB PO SCH (08:59)
[2018-09-24] MEDS: Cefdinir 300 MG CAP PO SCH (08:59)
[2018-09-24] MEDS ORDERED: Isosorbide Dinitrate 5 MG TAB PO SCH (09:00)
[2018-09-24] MEDS ORDERED: hydrALAZINE 25 MG TAB PO SCH (09:00)
[2018-09-24] MEDS: Saccharomyces boulardii 250 MG CAP PO SCH (09:00)
[2018-09-24] MEDS: Magnesium Oxide 400 MG TAB PO SCH (09:00)
[2018-09-24] MEDS: Docusate 100 MG CAP PO SCH (09:00)
[2018-09-24 09:04] VITALS: BP 152/81
[2018-09-24 12:59] VITALS: TEMP 98.5
--- NOTE | 2018-09-25 13:23 | DIS ---
DATE OF ADMISSION: 09/14/2018 DATE OF DISCHARGE: 09/24/2018 ADMITTING DIAGNOSES: 1. Acute on chronic systolic heart failure. 2. Atrial fibrillation with rapid ventricular rate. 3. Questionable pneumonia. 4. Hypocalcemia. 5. Chronic ischemic cardiomyopathy with decreased left ventricular function with ejection fraction of 15% to 20%, echo done in 05/2018. 6. Hypertension. 7. Status post cerebrovascular accident. 8. Diabetes mellitus. 9. Hyperlipidemia. FINAL DIAGNOSES: 1. Acute on chronic systolic heart failure, improved. 2. Atrial fibrillation with rapid ventricular rate, status post cardioversion, converted to sinus rhythm. 3. Acute kidney injury, improved. 4. Hyperkalemia and hypercalcemia, improved. 5. Insulin-dependent diabetes mellitus. 6. Pneumonia. 7. Chronic ischemic cardiomyopathy with decreased left ventricular function. 8. Hypertension. 9. Diabetes mellitus. 10. Hyperlipidemia. 11. Status post cerebrovascular accident. BRIEF SUMMARY OF HOSPITAL COURSE: Ms. Gale is a 63-year-old female admitted because of shortness of breath. The patient was found to be in atrial fibrillation with rapid ventricular rate and acute on chronic systolic heart failure. The patient was started on IV Lasix and Cardizem infusion, after which her shortness of breath improved. Her heart rate controlled. Cardiology consult was done. The patient was seen by Dr. Polk, admitted the patient with CHF acute and atrial fibrillation with RVR. Dr. Salvador is a patient's regular commercial management accountant who saw her following, suggested to decrease Cardizem and taper it since the rate is controlled and suggested for MEGHAN and then cardioversion. The patient underwent transesophageal echocardiogram, it did not show any thrombus, showed severe decrease in LV function. The patient underwent cardioversion and converted to sinus rhythm and she stayed in the sinus while in the hospital. The patient was found to have pneumonia as well at the right lung base. So, she will continue on IV antibiotics and the patient clinically improved. She was started on physical therapy. In view of improvement, the patient is being discharged home. Her renal function also improved with creatinine which was 2.01, improved to 1.19. In view of improvement, the patient was discharged. PHYSICAL EXAMINATION: GENERAL: At the time of discharge, she was stable. VITAL SIGNS: Stable. LUNGS: Clear HEART: Heart sounds regular. ABDOMEN: Soft, nontender. Bowel sounds present. DISCHARGE MEDICATIONS: Include; 1. Zoloft 50 mg daily. 2. Aspirin 81 mg daily. 3. Mucinex 600 b.i.d. 4. Coreg 6.25 b.i.d. 5. Lasix 40 mg daily. 6. isosorbide dinitrate 10 mg bid. 7. Colace 100 mg b.i.d. 8. Eliquis 5 mg b.i.d. 9. Magnesium oxide 400 b.i.d. 10. Budesonide nebulizer b.i.d.. 11. Amiodarone 200 mg daily. 12 Cardizem p.r.n. 13. Zofran p.r.n. 14. Albuterol inhaler p.r.n. 15 Insulin 70/30 15 units b.i.d. 16 MiraLAX 17 g daily. 17. Lipitor 40 mg at bedtime. 18 Tylenol p.r.n. 19 . Omnicef 300 mg bid for 1 week. 20 Florastor 50 mg daily. 21 Hydralazine 25 b.i.d. . The patient will be discharged back to [facility] and she will continue with physical therapy. Job ID: [id number] [facility]
--- NOTE | 2018-09-26 10:30 | PQF ---
FARZANA CARLOS VENKAT R MD [id number] [facility]295 [id number] CLINICAL DOCUMENTATION CLARIFICATION FORM: POST DISCHARGE DATE: 09/26/2018 ATTN: Dr. Peralta Please exercise your independent, professional judgment in responding to the clarification form. Clinical indicators are provided on the bottom of this form for your review Please check appropriate box(s): [ y ] Acute on Chronic Renal Failure please specify Stage of CKD ___3 (see below) [ ] Other diagnosis (please specify) [ ] Unable to determine In addition, please specify: Present on Admission (POA): [y ] Yes [ ] No [ ] Unable to determine National Kidney Foundation Guidelines for CKD Staging Stage I Kidney damage with normal or increased GFRGFR > 90 Stage IIKidney damage with mildly decreased GFRGFR 60-89 Stage III Kidney damage with moderately decreased GFRGFR 30-59 Stage IVKidney damage with severely decreased GFRGFR 16-29 Stage VKidney failureGFR<15 ESRDEnd Stage Renal DiseaseOn dialysis Acute Renal Failure/Acute Kidney Failure defined as: Increases in SCr by (>) 0.3 mg/dl within 48 hours OR- Increases in SCr by (>) 1.5 times baseline, known or presumed to have occurred within the prior 7 days OR- Urine volume < 0.5 ml/kg/hour for 6 hours (KDIGO supplement 2012 for RIFLE/RADHA criteria) For continuity of documentation, please document condition throughout progress notes and discharge summary. Thank You. CLINICAL INDICATORS - SIGNS / SYMPTOMS / LAB BUN: 09/14--51 and 50. 2 --44. 2-- 39. 2-- 35. 2-- 26. Creatinine: 09/14--2.01 and 1.95. 09/15--1.88. 09/17--1.31 and 1.68. 09/19-- 1.69 and 1.59. 09/21--1.49. 09/23--1.19. Estimated GFR: 09/14--30 and 31. 2/--33. 2/18--40. 2/--50 and 37. 2/-- 37 and 40. 2/--43. 2/25--55. Per 09/14 consult (Jenniffer): Chronic kidney disease. She has elevated creatinine quite a while, since 12/13. The patient might need renal consult for her kidney functions. We would like to hold SNOW inhibitor and ARB due to the worsening of the kidney function at this moment. RISK FACTORS Hypertension. Diabetes. Acute on chronic systolic heart failure.l TREATMENTS: Hold SNOW inhibitor and ARB. Labs. IV fluids. (This form is maintained as a part of the permanent medical record) 2015 [employer] All Rights Reserved Sada [email or web address] [phone] MTDD
== END 2018-09-24 13:20 | DRG 291 ==
LOC: ERS 01:54 → ERHOLD 03:31 → 2NO 15:20
PROVIDERS: ADMIT Internal Medicine; ATTEND Internal Medicine
PROC: B24BZZ4 Ultrasonography of Heart with Aorta, Transesophageal (ICD-10-PCS; principal; 2018-09-20)
DX: I13.0 Hypertensive heart and chronic kidney disease with heart failure and stage 1 through stage 4 chronic kidney disease, or unspecified chronic kidney disease (principal); I50.23 Acute on chronic systolic (congestive) heart failure; J15.6 Pneumonia due to other Gram-negative bacteria; J96.20 Acute and chronic respiratory failure, unspecified whether with hypoxia or hypercapnia; N17.9 Acute kidney failure, unspecified; I24.8 Other forms of acute ischemic heart disease; I69.354 Hemiplegia and hemiparesis following cerebral infarction affecting left non-dominant side; E11.22 Type 2 diabetes mellitus with diabetic chronic kidney disease; I48.91 Unspecified atrial fibrillation; N18.3 Chronic kidney disease, stage 3 (moderate); I25.5 Ischemic cardiomyopathy; E78.5 Hyperlipidemia, unspecified; E87.5 Hyperkalemia; E83.52 Hypercalcemia; I25.10 Atherosclerotic heart disease of native coronary artery without angina pectoris; Z91.19 Patient's noncompliance with other medical treatment and regimen; Z87.891 Personal history of nicotine dependence; Z79.01 Long term (current) use of anticoagulants; Z79.82 Long term (current) use of aspirin; Z79.4 Long term (current) use of insulin; Z79.52 Long term (current) use of systemic steroids; Z79.899 Other long term (current) drug therapy; Z95.1 Presence of aortocoronary bypass graft; Z95.810 Presence of automatic (implantable) cardiac defibrillator; Z95.5 Presence of coronary angioplasty implant and graft
CPT/HCPCS: 36415; 36416; 71045; 71250; 71275; 80048; 80053; 80061; 80162; 82553; 82565; 83605; 83880; 84484; 85014; 85018; 85025; 85049; 87040; 87324; 87449; 92960; 93005; 93312; 93798; 94640; 94760; 96365; 96366; 96367; 96375; J0692; J1160; J1815; J1940; J1956; J2405; J2543; J2704; J3370; J7050; J7626; Q9966

== ENCOUNTER 2019-06-17 09:28 | Outpatient (CLI) | payer MEDICARE, MEDICAID ==
--- NOTE | 2019-06-17 10:00 | RAD ---
RADIOGRAPH CHEST 2 VIEW: DATE: 06/17/2019 TIME: 9:48 AM HISTORY: 64-year-old female with atrial fibrillation. COMPARISON: 10/22/2018 FINDINGS: Cardiomegaly. Sternotomy wires. Left subclavian AICD. No pneumothorax. Diffuse pulmonary venous engor gement, worse than previously. Prominent interstitial markings appears slightly worse than previously. Small to moderate size irregularly-shaped masslike opacity at right lower lobe is unchang ed. No pleural effusion. Hyperinflation. Ectasia and tortuosity of thoracic aorta. Hyperinflation suggestive of COPD. No pneumothorax. IMPRESSION: 1) evidence for mild or minimal congestive heart failure: Cardiomegaly and pulmonary venous congestio n. 2) automatic implantable cardioverter-defibrillator. 3) right lower lobe pulmonary mass like opacity, unchanged. 4) emphysema. 5) prominent interstitial markings, chronic versus acute or both.
== END 2019-06-17 09:29 | disposition home or self-care (01) ==
LOC: BICRAD 09:28
PROVIDERS: ATTEND Internal Medicine Cardiovascular Disease
DX: I48.91 Unspecified atrial fibrillation (principal); I50.9 Heart failure, unspecified; I51.7 Cardiomegaly; R09.89 Other specified symptoms and signs involving the circulatory and respiratory systems; R91.8 Other nonspecific abnormal finding of lung field; J43.9 Emphysema, unspecified; Z95.810 Presence of automatic (implantable) cardiac defibrillator
CPT/HCPCS: 71046

== ENCOUNTER 2020-09-29 09:19 | Outpatient (CLI) | payer MEDICARE, OTHER ==
--- NOTE | 2020-09-29 09:51 | RAD ---
EXAM: Chest 2 views: HISTORY: Chronic systolic congestive heart failure COMPARISON: 06/17/2019; CT chest 03/10/2020, 02/22/2015 FINDINGS: There is an enlarged but stable cardiomediastinal silhouette. The patient is status post sternotomy. The pacemaker is unchanged in position. There is a stable opacity in the right lung base. No pleural effusion. No acute osseous abnormality. IMPRESSION: Stable exam
== END 2020-09-29 09:20 | disposition home or self-care (01) ==
LOC: BICRAD 09:19
PROVIDERS: ATTEND Internal Medicine Cardiovascular Disease
DX: I50.22 Chronic systolic (congestive) heart failure (principal); Z92.29 Personal history of other drug therapy
CPT/HCPCS: 36415; 71046; 80048; 80076; 84443

== ENCOUNTER 2020-12-07 02:27 | Inpatient (IN) | payer MEDICARE, MEDICAID ==
[2020-12-07 03:22] LABS: #Eosinphils 0.2 thou/uL (0.0-0.7); #Lymphocytes 0.9 thou/uL (1.20-3.40); #Monocytes 0.5 thou/uL (0.11-0.59); %Basophils 0.5 % (0.0-1.0); %Eosinophils 3.7 % (0.0-10.0); %Lymphocytes 20.1 % (21.0-51.0); %Neutrophils 64.7 % (42.0-75.0); Mean Corpuscular HGB CONC 32.7 g/dL (32.0-36.0); Mean Corpuscular Hemoglobin 31.2 pg (27.0-31.0); Mean Corpuscular Volume 95.2 fL (78.0-98.0); Mean Platelet Volume 9.1 fL (7.4-10.4); Platelet Count 216 thou/uL (130-400); RBC Distribution Width 12.9 % (11.5-14.5); Red Blood Cell (RBC) Count 3.84 mill/uL (4.20-5.40); White Blood Cell (WBC) Count 4.7 thou/uL (4.8-10.8)
[2020-12-07 03:44] LABS: ALT (SGPT) 19 U/L (8-55); AST (SGOT) 31 U/L (5-34); Albumin 3.8 g/dL (3.4-4.8); Alkaline Phosphatase 131 U/L (40-110); Anion Gap 14 mmol/L (10-20); BUN (Urea Nitrogen) 16 mg/dL (9.8-20.1); Bilirubin, Total 0.8 mg/dL (0.2-1.2); CK (CPK) 247 U/L (29-168); Calc. Creatinine Clearance 0 mL/min (70-130); Carbon Dioxide 24 mmol/L (23-31); Chloride 105 mmol/L (98-107); Globulin 3.2 g/dL (2.4-3.5); Glucose 120 mg/dL (80-115); Potassium 3.1 mmol/L (3.5-5.1); Sodium 140 mmol/L (136-145)
[2020-12-07 03:50] LABS: Bilirubin Negative (Negative); Blood, Urine Negative (Negative); Clarity Clear (Clear); Glucose, Urine (Dipstick) Normal (Negative); Ketone, Urine Negative (Negative); Leukocyte 500 Leu/uL (Negative); Nitrite Negative (Negative); Protein, Urine (Dipstick) 50 mg/dL (Neg-Trace); RBC/HPF 0-3 HPF (0-3); Specific Gravity, Urine 1.024 (1.002-1.036); Squamous Epithelial 0-3 HPF (0-3); Urobilinogen Normal mg/dL (Less than 2); WBC/HPF 21-50 HPF (0-3); pH, Urine 5.5 (5.0-9.0)
[2020-12-07 03:54] LABS: Bacteria/HPF 1+ HPF (None Seen)
[2020-12-07 04:05] LABS: CKMB 2.4 ng/mL (0-6.6)
[2020-12-07] MEDS ORDERED: Furosemide 20 MG/2 ML VIAL ONE (04:23)
[2020-12-07] MEDS ORDERED: Dextrose 5% in Water 1,000 ML IV PRN (04:42)
[2020-12-07] MEDS ORDERED: Ondansetron ODT 4 MG TAB PO PRN (04:42)
[2020-12-07] MEDS ORDERED: Dextrose 50% Abboject 50 ML SYRINGE SLOW IVP PRN (04:42)
[2020-12-07] MEDS ORDERED: Ondansetron PF 4 MG/2 ML Vial IVP PRN (04:42)
[2020-12-07] MEDS ORDERED: HYDROcodone/Acetaminophen 5/325 mg Tablet PO PRN (04:42)
[2020-12-07] MEDS ORDERED: HumaLOG 300 UNITS/3 ML VIAL SC PRN (04:42)
[2020-12-07] MEDS ORDERED: Electrolyte Replacement Protocol 1 EACH FS SCH (04:45)
[2020-12-07] MEDS ORDERED: Electrolyte Replacement Protocol 1 EACH FS PRN (04:48)
[2020-12-07] MEDS ORDERED: cefTRIAXone\\ROCEPHIN 2 GM VIAL ONE (04:56)
[2020-12-07] MEDS ORDERED: Potassium Chloride 20 MEQ TAB ONE (05:00)
[2020-12-07] MEDS ORDERED: Potassium Chloride 20 MEQ TAB PO SCH (05:00)
[2020-12-07] MEDS ORDERED: Magnesium 2 GM/50 ML 2 GM in Premix Bag 1 BAG IVPB SCH (06:15)
[2020-12-07] MEDS ORDERED: Magnesium 2 GM/50 ML BAG (IN WATER) ONE (07:18)
[2020-12-07 07:22] LABS: Troponin I 0.184 ng/mL (< 0.028)
[2020-12-07 08:52] LABS: SARS-CoV-2 PCR by NAA Not Detected (NotDetected)
[2020-12-07] MEDS ORDERED: Heparin 5,000 UNITS/ML VIAL SC SCH (09:00)
[2020-12-07 09:09] LABS: Troponin I 0.173 ng/mL (< 0.028)
[2020-12-07] MEDS ORDERED: Non-Formulary Item 1 EACH (Albuterol Sulfate [Ventolin Hfa] 8 GM Hfa.Aer.Ad) INH PRN (10:02)
[2020-12-07 10:27] LABS: Anion Gap 17 mmol/L (10-20); BUN (Urea Nitrogen) 14 mg/dL (9.8-20.1); Calc. Creatinine Clearance 56 mL/min (70-130); Calcium 10.7 mg/dL (7.8-10.44); Carbon Dioxide 23 mmol/L (23-31); Chloride 104 mmol/L (98-107); Glucose 107 mg/dL (80-115); Potassium 3.7 mmol/L (3.5-5.1); Sodium 140 mmol/L (136-145)
[2020-12-07] MEDS ORDERED: Albuterol 200 PUFF (6.7GM INHALER) INH PRN (10:28)
[2020-12-07] MEDS: Furosemide 40 MG/4 ML VIAL SLOW IVP SCH (16:57)
[2020-12-07] MEDS: hydrALAZINE 25 MG TAB PO SCH (20:27)
[2020-12-07] MEDS: Atorvastatin Calcium 40 MG TAB PO SCH (20:27)
[2020-12-07] MEDS: Carvedilol 3.125 MG TAB PO SCH (20:27)
[2020-12-07] MEDS ORDERED: Apixaban 5 MG TAB PO SCH (21:00)
[2020-12-08] MEDS: Acetaminophen 325 MG TAB PO PRN ×2 (03:55→21:09)
[2020-12-08 04:46] LABS: #Eosinphils 0.2 thou/uL (0.0-0.7); #Monocytes 0.4 thou/uL (0.11-0.59); %Basophils 0.7 % (0.0-1.0); %Eosinophils 5.6 % (0.0-10.0); %Lymphocytes 27.7 % (21.0-51.0); %Monocytes 11.4 % (0.0-10.0); %Neutrophils 54.6 % (42.0-75.0); Hemoglobin 11.8 g/dL (12.0-16.0); Mean Corpuscular HGB CONC 32.2 g/dL (32.0-36.0); Mean Corpuscular Hemoglobin 30.5 pg (27.0-31.0); Mean Corpuscular Volume 94.8 fL (78.0-98.0); Mean Platelet Volume 8.9 fL (7.4-10.4); Platelet Count 217 thou/uL (130-400); RBC Distribution Width 12.7 % (11.5-14.5); Red Blood Cell (RBC) Count 3.87 mill/uL (4.20-5.40); White Blood Cell (WBC) Count 3.6 thou/uL (4.8-10.8)
[2020-12-08 05:16] LABS: Anion Gap 11 mmol/L (10-20); BUN (Urea Nitrogen) 15 mg/dL (9.8-20.1); Calc. Creatinine Clearance 57 mL/min (70-130); Calcium 10.6 mg/dL (7.8-10.44); Carbon Dioxide 28 mmol/L (23-31); Chloride 102 mmol/L (98-107); Glucose 113 mg/dL (80-115); Magnesium 1.9 mg/dL (1.6-2.6); Potassium 3.1 mmol/L (3.5-5.1); Sodium 138 mmol/L (136-145)
[2020-12-08] MEDS: Furosemide 40 MG/4 ML VIAL SLOW IVP SCH ×2 (06:04→15:57)
[2020-12-08] MEDS ORDERED: Magnesium 2 GM/50 ML 2 GM in Premix Bag 1 BAG IVPB SCH (06:30)
[2020-12-08] MEDS ORDERED: Potassium Chloride 20 MEQ TAB PO SCH (06:30)
[2020-12-08] MEDS: Carvedilol 3.125 MG TAB PO SCH (08:22)
[2020-12-08] MEDS: Aspirin 81 mg Enteric Coated Tablet PO SCH (08:22)
[2020-12-08] MEDS: hydrALAZINE 25 MG TAB PO SCH (08:22)
[2020-12-08] MEDS: Amiodarone 200 MG TAB PO SCH (08:22)
[2020-12-08] MEDS ORDERED: Non-Formulary Item 1 EACH (Sertraline Hcl [Zoloft] 50 MG Tab) PO SCH (09:00)
[2020-12-08] MEDS ORDERED: cefTRIAXone\\ROCEPHIN 2 GM in Sodium Chloride 0.9% 100 ML IVPB SCH (09:00)
[2020-12-08 09:47] VITALS: BMI 27.9
[2020-12-08] MEDS: Potassium Chloride 10 MEQ TAB PO SCH (15:57)
[2020-12-08] MEDS: Atorvastatin Calcium 40 MG TAB PO SCH (21:09)
[2020-12-09] MEDS: Carvedilol 3.125 MG TAB PO SCH ×2 (00:32→09:19)
[2020-12-09] MEDS: hydrALAZINE 25 MG TAB PO SCH ×3 (00:32→20:24)
[2020-12-09 04:37] LABS: Anion Gap 11 mmol/L (10-20); BUN (Urea Nitrogen) 18 mg/dL (9.8-20.1); Calc. Creatinine Clearance 54 mL/min (70-130); Calcium 10.7 mg/dL (7.8-10.44); Carbon Dioxide 29 mmol/L (23-31); Chloride 104 mmol/L (98-107); Glucose 98 mg/dL (80-115); Potassium 3.3 mmol/L (3.5-5.1); Sodium 141 mmol/L (136-145)
[2020-12-09 04:56] LABS: Free T4 (Free Thyroxine) 1.77 ng/dL (0.70-1.48); Thyroid Stimulating Hormone 0.0031 uIU/mL (0.35-4.94)
[2020-12-09] MEDS: Furosemide 40 MG/4 ML VIAL SLOW IVP SCH ×2 (05:50→15:10)
[2020-12-09] MEDS ORDERED: Potassium Chloride 20 MEQ TAB PO SCH (06:30)
[2020-12-09] MEDS ORDERED: Heparin 5,000 UNITS/ML VIAL SC SCH (09:00)
[2020-12-09] MEDS: Aspirin 81 mg Enteric Coated Tablet PO SCH (09:18)
[2020-12-09] MEDS: Amiodarone 200 MG TAB PO SCH (09:18)
[2020-12-09] MEDS: Apixaban 5 MG TAB PO SCH ×2 (09:18→20:19)
[2020-12-09] MEDS: Potassium Chloride 10 MEQ TAB PO SCH ×2 (09:18→15:10)
[2020-12-09] MEDS: Cefepime 1 GM in Sodium Chloride 0.9% 100 ML IVPB SCH ×2 (09:19→20:25)
[2020-12-09] MEDS: Carvedilol 6.25 MG TAB PO SCH (15:10)
[2020-12-09] MEDS: Acetaminophen 325 MG TAB PO PRN (20:18)
[2020-12-09] MEDS: Atorvastatin Calcium 40 MG TAB PO SCH (20:19)
[2020-12-10 04:28] LABS: #Eosinphils 0.3 thou/uL (0.0-0.7); #Lymphocytes 1.4 thou/uL (1.20-3.40); #Monocytes 0.5 thou/uL (0.11-0.59); #Neutrophils 2.1 thou/uL (1.40-6.50); %Basophils 0.4 % (0.0-1.0); %Eosinophils 7.7 % (0.0-10.0); %Lymphocytes 31.2 % (21.0-51.0); %Monocytes 12.1 % (0.0-10.0); %Neutrophils 48.6 % (42.0-75.0); Hemoglobin 12.5 g/dL (12.0-16.0); Mean Corpuscular HGB CONC 31.4 g/dL (32.0-36.0); Mean Corpuscular Volume 95.3 fL (78.0-98.0); Platelet Count 244 thou/uL (130-400); RBC Distribution Width 12.9 % (11.5-14.5); Red Blood Cell (RBC) Count 4.18 mill/uL (4.20-5.40); White Blood Cell (WBC) Count 4.3 thou/uL (4.8-10.8)
[2020-12-10 04:43] LABS: Anion Gap 12 mmol/L (10-20); BUN (Urea Nitrogen) 20 mg/dL (9.8-20.1); Calc. Creatinine Clearance 49 mL/min (70-130); Calcium 11.2 mg/dL (7.8-10.44); Carbon Dioxide 29 mmol/L (23-31); Chloride 102 mmol/L (98-107); Glucose 97 mg/dL (80-115); Magnesium 1.8 mg/dL (1.6-2.6); Potassium 3.9 mmol/L (3.5-5.1); Sodium 139 mmol/L (136-145)
[2020-12-10] MEDS: Furosemide 40 MG/4 ML VIAL SLOW IVP SCH ×2 (05:32→13:34)
[2020-12-10] MEDS ORDERED: Magnesium 2 GM/50 ML 2 GM in Premix Bag 1 BAG IVPB SCH (06:15)
[2020-12-10] MEDS: Potassium Chloride 10 MEQ TAB PO SCH ×2 (09:33→16:26)
[2020-12-10] MEDS: Cefepime 1 GM in Sodium Chloride 0.9% 100 ML IVPB SCH (09:33)
[2020-12-10] MEDS: Aspirin 81 mg Enteric Coated Tablet PO SCH (09:34)
[2020-12-10] MEDS: hydrALAZINE 25 MG TAB PO SCH ×2 (09:34→20:37)
[2020-12-10] MEDS: Apixaban 5 MG TAB PO SCH ×2 (09:34→20:38)
[2020-12-10] MEDS: Carvedilol 6.25 MG TAB PO SCH ×2 (09:34→16:26)
[2020-12-10] MEDS: Amiodarone 200 MG TAB PO SCH (09:34)
[2020-12-10] MEDS: Atorvastatin Calcium 40 MG TAB PO SCH (20:38)
[2020-12-11 05:17] LABS: Anion Gap 13 mmol/L (10-20); BUN (Urea Nitrogen) 22 mg/dL (9.8-20.1); Calc. Creatinine Clearance 49 mL/min (70-130); Calcium 10.7 mg/dL (7.8-10.44); Carbon Dioxide 25 mmol/L (23-31); Chloride 106 mmol/L (98-107); Glucose 86 mg/dL (80-115); Potassium 4.1 mmol/L (3.5-5.1); Sodium 140 mmol/L (136-145)
[2020-12-11] MEDS: Furosemide 40 MG/4 ML VIAL SLOW IVP SCH ×2 (05:21→14:20)
[2020-12-11] MEDS ORDERED: Cefepime 1 GM in Sodium Chloride 0.9% 100 ML IVPB SCH (09:00)
[2020-12-11] MEDS: Carvedilol 6.25 MG TAB PO SCH ×2 (09:44→17:22)
[2020-12-11] MEDS: Potassium Chloride 10 MEQ TAB PO SCH ×2 (09:44→17:22)
[2020-12-11] MEDS: Methimazole 5 MG TAB PO SCH (09:44)
[2020-12-11] MEDS: Aspirin 81 mg Enteric Coated Tablet PO SCH (09:44)
[2020-12-11] MEDS: Apixaban 5 MG TAB PO SCH ×2 (09:44→20:58)
[2020-12-11] MEDS: hydrALAZINE 25 MG TAB PO SCH ×2 (09:44→20:58)
[2020-12-11] MEDS ORDERED: GUAIFENESIN SF SOLN 200 MG/10 ML UDCUP PO PRN (10:23)
[2020-12-11] MEDS: Atorvastatin Calcium 40 MG TAB PO SCH (20:58)
[2020-12-11] MEDS: Cipro 250 MG TAB PO SCH (20:58)
[2020-12-12 05:35] LABS: Anion Gap 11 mmol/L (10-20); BUN (Urea Nitrogen) 25 mg/dL (9.8-20.1); Calc. Creatinine Clearance 48 mL/min (70-130); Carbon Dioxide 28 mmol/L (23-31); Chloride 105 mmol/L (98-107); Glucose 96 mg/dL (80-115); Potassium 4.4 mmol/L (3.5-5.1); Sodium 140 mmol/L (136-145)
[2020-12-12] MEDS: Cipro 250 MG TAB PO SCH (05:58)
[2020-12-12] MEDS: Furosemide 40 MG/4 ML VIAL SLOW IVP SCH (05:58)
[2020-12-12] MEDS: Apixaban 5 MG TAB PO SCH (08:33)
[2020-12-12] MEDS: Carvedilol 6.25 MG TAB PO SCH (08:33)
[2020-12-12] MEDS: Potassium Chloride 10 MEQ TAB PO SCH (08:33)
[2020-12-12] MEDS: Aspirin 81 mg Enteric Coated Tablet PO SCH (08:33)
[2020-12-12] MEDS: hydrALAZINE 25 MG TAB PO SCH (08:34)
[2020-12-12] MEDS: Methimazole 5 MG TAB PO SCH (08:34)
[2020-12-12] MEDS ORDERED: Furosemide 40 MG TAB PO SCH (09:00)
[2020-12-12 13:01] VITALS: BP 110/58; TEMP 97.9
== END 2020-12-12 14:33 | disposition home or self-care (01) | DRG 291 ==
LOC: ERS 02:27 → ERHOLD 04:16 → 2NO 15:59
PROVIDERS: ADMIT Internal Medicine; ATTEND Internal Medicine
PROC: 4B02XTZ Measurement of Cardiac Defibrillator, External Approach (ICD-10-PCS; principal; 2020-12-09)
DX: I13.0 Hypertensive heart and chronic kidney disease with heart failure and stage 1 through stage 4 chronic kidney disease, or unspecified chronic kidney disease (principal); I50.23 Acute on chronic systolic (congestive) heart failure; J96.01 Acute respiratory failure with hypoxia; Z20.822 Contact with and (suspected) exposure to COVID-19; Z23 Encounter for immunization; N39.0 Urinary tract infection, site not specified; I69.354 Hemiplegia and hemiparesis following cerebral infarction affecting left non-dominant side; I47.2 Ventricular tachycardia; I48.0 Paroxysmal atrial fibrillation; E11.22 Type 2 diabetes mellitus with diabetic chronic kidney disease; N18.30 Chronic kidney disease, stage 3 unspecified; B96.5 Pseudomonas (aeruginosa) (mallei) (pseudomallei) as the cause of diseases classified elsewhere; I25.5 Ischemic cardiomyopathy; E05.80 Other thyrotoxicosis without thyrotoxic crisis or storm; T46.2X5A Adverse effect of other antidysrhythmic drugs, initial encounter; E78.5 Hyperlipidemia, unspecified; E66.9 Obesity, unspecified; E83.42 Hypomagnesemia; Z79.899 Other long term (current) drug therapy; Z95.1 Presence of aortocoronary bypass graft; Z79.82 Long term (current) use of aspirin; Z79.01 Long term (current) use of anticoagulants; Z90.710 Acquired absence of both cervix and uterus; Z98.890 Other specified postprocedural states; Z93.6 Other artificial openings of urinary tract status; Z95.810 Presence of automatic (implantable) cardiac defibrillator; Z95.828 Presence of other vascular implants and grafts; Z87.442 Personal history of urinary calculi; Z68.27 Body mass index [BMI] 27.0-27.9, adult; Z91.14 Patient's other noncompliance with medication regimen; Z87.891 Personal history of nicotine dependence
CPT/HCPCS: 36415; 36416; 71045; 80048; 80053; 81003; 81015; 82550; 82553; 83605; 83735; 83880; 84439; 84443; 84481; 84484; 85025; 87040; 87086; 87186; 87635; 90471; 90732; 93005; 94640; 96365; 96375; G0009; J0692; J0696; J1644; J1940; J3475; J3490; J7620; U0003; U0005

== ENCOUNTER 2021-08-05 14:21 | Inpatient (IN) | payer MEDICARE, MEDICAID ==
[2021-08-05] MEDS ORDERED: Ondansetron PF 4 MG/2 ML Vial ONE (15:01)
[2021-08-05 15:27] LABS: #Eosinphils 0.2 thou/uL (0.0-0.7); #Lymphocytes 0.6 thou/uL (1.20-3.40); #Monocytes 0.1 thou/uL (0.11-0.59); #Neutrophils 8.7 thou/uL (1.40-6.50); %Basophils 0.1 % (0.0-1.0); %Eosinophils 1.6 % (0.0-10.0); %Lymphocytes 6.7 % (21.0-51.0); %Monocytes 1.2 % (0.0-10.0); %Neutrophils 90.3 % (42.0-75.0); Hemoglobin 12.4 g/dL (12.0-16.0); Mean Corpuscular HGB CONC 33.6 g/dL (32.0-36.0); Mean Corpuscular Hemoglobin 31.8 pg (27.0-31.0); Mean Corpuscular Volume 94.6 fL (78.0-98.0); Mean Platelet Volume 8.1 fL (7.4-10.4); Platelet Count 206 thou/uL (130-400); RBC Distribution Width 12.7 % (11.5-14.5); White Blood Cell (WBC) Count 9.6 thou/uL (4.8-10.8)
[2021-08-05] MEDS ORDERED: Nitroglycerin 2% Ointment 1 INCH/1 GM Packet ONE ×2 (15:40→15:42)
[2021-08-05 15:41] LABS: Bilirubin Negative (Negative); Blood, Urine Trace (Negative); Clarity Turbid (Clear); Glucose, Urine (Dipstick) Normal (Negative); Ketone, Urine Negative (Negative); Leukocyte 500 Leu/uL (Negative); Nitrite Negative (Negative); Protein, Urine (Dipstick) 50 mg/dL (Neg-Trace); Specific Gravity, Urine 1.011 (1.002-1.036); Squamous Epithelial 0-3 HPF (0-3); Urobilinogen Normal mg/dL (Less than 2)
[2021-08-05 15:45] LABS: Bacteria/HPF 4+ HPF (None Seen)
[2021-08-05 15:54] LABS: Bilirubin, Total 1.2 mg/dL (0.2-1.2); Calcium 10.9 mg/dL (7.8-10.44); Chloride 110 mmol/L (98-107); Potassium 4.2 mmol/L (3.5-5.1); Sodium 139 mmol/L (136-145)
[2021-08-05 16:06] LABS: ALT (SGPT) 16 U/L (8-55); AST (SGOT) 23 U/L (5-34); Albumin 3.6 g/dL (3.4-4.8); Alkaline Phosphatase 152 U/L (40-110); Anion Gap 18 mmol/L (10-20); BUN (Urea Nitrogen) 18 mg/dL (9.8-20.1); CK (CPK) 95 U/L (29-168); Calc. Creatinine Clearance 0 mL/min (70-130); Carbon Dioxide 15 mmol/L (23-31); Globulin 3.2 g/dL (2.4-3.5); Glucose 140 mg/dL (80-115); Lipase 37 U/L (8-78); Protein, Total 6.8 g/dL (5.8-8.1)
[2021-08-05] MEDS ORDERED: Ondansetron PF 4 MG/2 ML Vial IVP PRN (17:00)
[2021-08-05] MEDS ORDERED: Ondansetron ODT 4 MG TAB SL PRN (17:00)
[2021-08-05 18:27] LABS: Troponin I 0.108 ng/mL (< 0.028)
[2021-08-05] MEDS: Acetaminophen 325 MG TAB PO PRN (20:13)
[2021-08-05 21:48] LABS: Troponin I 0.149 ng/mL (< 0.028)
[2021-08-05 22:42] VITALS: BMI 29.0
[2021-08-05] MEDS ORDERED: Dextrose 50% Abboject 50 ML SYRINGE SLOW IVP PRN (23:15)
[2021-08-05] MEDS ORDERED: HumaLOG 300 UNITS/3 ML VIAL SC PRN ×2 (23:15)
[2021-08-05] MEDS ORDERED: Dextrose 5% in Water 1,000 ML IV PRN (23:15)
[2021-08-05] MEDS ORDERED: Furosemide 40 MG/4 ML VIAL SLOW IVP SCH (23:15)
[2021-08-06] MEDS ORDERED: cefTRIAXone\\ROCEPHIN 1 GM in Sodium Chloride 0.9% 100 ML IVPB SCH (01:30)
[2021-08-06] MEDS: Acetaminophen 325 MG TAB PO PRN (03:39)
[2021-08-06] MEDS: Vancomycin 1.5 GRAM/300 ML BAG 1.5 GM in Premix Bag 1 BAG IVPB SCH (04:09)
[2021-08-06 04:47] LABS: #Lymphocytes 0.4 thou/uL (1.20-3.40); #Monocytes 0.3 thou/uL (0.11-0.59); #Neutrophils 5.1 thou/uL (1.40-6.50); %Eosinophils 0.3 % (0.0-10.0); %Lymphocytes 7.5 % (21.0-51.0); %Monocytes 5.6 % (0.0-10.0); %Neutrophils 86.6 % (42.0-75.0); Hemoglobin 11.5 g/dL (12.0-16.0); Mean Corpuscular HGB CONC 33.1 g/dL (32.0-36.0); Mean Corpuscular Hemoglobin 31.2 pg (27.0-31.0); Mean Corpuscular Volume 94.3 fL (78.0-98.0); Mean Platelet Volume 8.4 fL (7.4-10.4); Platelet Count 169 thou/uL (130-400); RBC Distribution Width 12.9 % (11.5-14.5); Red Blood Cell (RBC) Count 3.69 mill/uL (4.20-5.40); White Blood Cell (WBC) Count 5.9 thou/uL (4.8-10.8)
[2021-08-06 05:08] LABS: Anion Gap 15 mmol/L (10-20); BUN (Urea Nitrogen) 21 mg/dL (9.8-20.1); Calc. Creatinine Clearance 51 mL/min (70-130); Calcium 10.8 mg/dL (7.8-10.44); Carbon Dioxide 19 mmol/L (23-31); Chloride 108 mmol/L (98-107); Glucose 122 mg/dL (80-115); Magnesium 1.6 mg/dL (1.6-2.6); Potassium 4.1 mmol/L (3.5-5.1); Sodium 138 mmol/L (136-145)
[2021-08-06] MEDS ORDERED: Cefepime 2 GM in Sodium Chloride 0.9% 100 ML IVPB SCH (06:00)
[2021-08-06] MEDS: Cefepime 2 GM in Sodium Chloride 0.9% 100 ML IVPB SCH ×2 (08:45→19:46)
[2021-08-06] MEDS: Furosemide 40 MG/4 ML VIAL SLOW IVP SCH (08:46)
[2021-08-06] MEDS: Ondansetron PF 4 MG/2 ML Vial IVP PRN (09:22)
[2021-08-06 12:01] LABS: Free T4 (Free Thyroxine) 1.03 ng/dL (0.70-1.48)
[2021-08-06] MEDS: Acetaminophen 500 MG TAB PO PRN ×2 (12:09→19:46)
[2021-08-06 17:12] LABS: SARS-CoV-2 PCR by NAA Not Detected (NotDetected)
[2021-08-06] MEDS: Docusate 100 MG CAP PO PRN (19:46)
[2021-08-07] MEDS: Ondansetron PF 4 MG/2 ML Vial IVP PRN (02:30)
[2021-08-07] MEDS: Acetaminophen 500 MG TAB PO PRN (02:56)
[2021-08-07] MEDS: Vancomycin 1.5 GRAM/300 ML BAG 1.5 GM in Premix Bag 1 BAG IVPB SCH (03:43)
[2021-08-07] MEDS: Cefepime 2 GM in Sodium Chloride 0.9% 100 ML IVPB SCH ×2 (08:29→20:45)
[2021-08-07] MEDS: Furosemide 40 MG/4 ML VIAL SLOW IVP SCH (08:30)
[2021-08-07] MEDS ORDERED: Aspirin 81 mg Enteric Coated Tablet PO SCH (09:15)
[2021-08-07] MEDS: Apixaban 5 MG TAB PO SCH ×2 (09:20→20:45)
[2021-08-07] MEDS: Isosorbide Mononitrate 20 MG TAB PO SCH ×2 (09:21→20:46)
[2021-08-07] MEDS: Carvedilol 3.125 MG TAB PO SCH (16:03)
[2021-08-07] MEDS: Atorvastatin Calcium 40 MG TAB PO SCH (20:45)
[2021-08-07] MEDS: Docusate 100 MG CAP PO PRN (20:50)
[2021-08-08 04:13] LABS: #Eosinphils 0.1 thou/uL (0.0-0.7); #Lymphocytes 0.8 thou/uL (1.20-3.40); #Monocytes 0.7 thou/uL (0.11-0.59); %Basophils 0.1 % (0.0-1.0); %Eosinophils 1.2 % (0.0-10.0); %Lymphocytes 14.3 % (21.0-51.0); %Monocytes 12.4 % (0.0-10.0); Hemoglobin 10.4 g/dL (12.0-16.0); Mean Corpuscular HGB CONC 33.2 g/dL (32.0-36.0); Mean Corpuscular Hemoglobin 31.4 pg (27.0-31.0); Mean Corpuscular Volume 94.4 fL (78.0-98.0); Mean Platelet Volume 8.9 fL (7.4-10.4); Platelet Count 142 thou/uL (130-400); RBC Distribution Width 12.7 % (11.5-14.5); Red Blood Cell (RBC) Count 3.31 mill/uL (4.20-5.40); White Blood Cell (WBC) Count 5.5 thou/uL (4.8-10.8)
[2021-08-08 04:36] LABS: Vancomycin, Trough 19.7 ug/mL
[2021-08-08 04:38] LABS: ALT (SGPT) 38 U/L (8-55); AST (SGOT) 28 U/L (5-34); Alkaline Phosphatase 113 U/L (40-110); Anion Gap 12 mmol/L (10-20); BUN (Urea Nitrogen) 25 mg/dL (9.8-20.1); Bilirubin, Total 0.6 mg/dL (0.2-1.2); Calc. Creatinine Clearance 48 mL/min (70-130); Calcium 10.7 mg/dL (7.8-10.44); Carbon Dioxide 22 mmol/L (23-31); Chloride 106 mmol/L (98-107); Globulin 3.1 g/dL (2.4-3.5); Glucose 105 mg/dL (80-115); Potassium 3.9 mmol/L (3.5-5.1); Protein, Total 6.1 g/dL (5.8-8.1); Sodium 136 mmol/L (136-145)
[2021-08-08] MEDS: Vancomycin 1.5 GRAM/300 ML BAG 1.5 GM in Premix Bag 1 BAG IVPB SCH (04:51)
[2021-08-08] MEDS ORDERED: VANCOMYCIN 1.25 GM/250 ML BAG 1.25 GM in Premix Bag 1 BAG IVPB SCH (05:00)
[2021-08-08] MEDS: Apixaban 5 MG TAB PO SCH ×2 (09:00→20:22)
[2021-08-08] MEDS: Ezetimibe 10 MG TAB PO SCH (09:00)
[2021-08-08] MEDS ORDERED: FLU VACC QS2021-22(65YR UP)/PF 240 MCG/0.7 ML SYRINGE IM ONE (09:00)
[2021-08-08] MEDS: Aspirin 81 mg Enteric Coated Tablet PO SCH (09:00)
[2021-08-08] MEDS: Docusate 100 MG CAP PO PRN (09:00)
[2021-08-08] MEDS: Carvedilol 3.125 MG TAB PO SCH (09:01)
[2021-08-08] MEDS: Isosorbide Mononitrate 20 MG TAB PO SCH ×2 (09:01→20:23)
[2021-08-08] MEDS: Furosemide 40 MG/4 ML VIAL SLOW IVP SCH (09:01)
[2021-08-08] MEDS: Cefepime 2 GM in Sodium Chloride 0.9% 100 ML IVPB SCH ×2 (09:42→20:23)
[2021-08-08] MEDS ORDERED: Cyclobenzaprine 10 MG TAB PO PRN (15:30)
[2021-08-08] MEDS: Carvedilol 6.25 MG TAB PO SCH (17:18)
[2021-08-08] MEDS: Famotidine 20 MG TAB PO SCH (20:23)
[2021-08-08] MEDS: Atorvastatin Calcium 40 MG TAB PO SCH (20:23)
[2021-08-09 05:27] LABS: #Eosinphils 0.4 thou/uL (0.0-0.7); #Lymphocytes 0.8 thou/uL (1.20-3.40); #Monocytes 0.6 thou/uL (0.11-0.59); #Neutrophils 2.5 thou/uL (1.40-6.50); %Basophils 0.1 % (0.0-1.0); %Eosinophils 8.5 % (0.0-10.0); %Monocytes 13.8 % (0.0-10.0); %Neutrophils 58.6 % (42.0-75.0); Hemoglobin 10.7 g/dL (12.0-16.0); Mean Corpuscular HGB CONC 32.9 g/dL (32.0-36.0); Mean Corpuscular Hemoglobin 30.9 pg (27.0-31.0); Mean Platelet Volume 9.7 fL (7.4-10.4); Platelet Count 149 thou/uL (130-400); RBC Distribution Width 12.7 % (11.5-14.5); Red Blood Cell (RBC) Count 3.46 mill/uL (4.20-5.40); White Blood Cell (WBC) Count 4.2 thou/uL (4.8-10.8)
[2021-08-09 05:59] LABS: ALT (SGPT) 28 U/L (8-55); AST (SGOT) 18 U/L (5-34); Albumin 2.9 g/dL (3.4-4.8); Alkaline Phosphatase 113 U/L (40-110); Anion Gap 12 mmol/L (10-20); BUN (Urea Nitrogen) 23 mg/dL (9.8-20.1); Bilirubin, Total 0.5 mg/dL (0.2-1.2); Calc. Creatinine Clearance 58 mL/min (70-130); Calcium 10.4 mg/dL (7.8-10.44); Carbon Dioxide 23 mmol/L (23-31); Chloride 105 mmol/L (98-107); Globulin 3.1 g/dL (2.4-3.5); Glucose 98 mg/dL (80-115); Potassium 3.9 mmol/L (3.5-5.1); Sodium 136 mmol/L (136-145)
[2021-08-09] MEDS: Furosemide 40 MG/4 ML VIAL SLOW IVP SCH (08:51)
[2021-08-09] MEDS: Carvedilol 6.25 MG TAB PO SCH ×2 (08:52→16:52)
[2021-08-09] MEDS: Ezetimibe 10 MG TAB PO SCH (08:52)
[2021-08-09] MEDS: Isosorbide Mononitrate 20 MG TAB PO SCH ×2 (08:52→20:04)
[2021-08-09] MEDS: Docusate 100 MG CAP PO PRN (08:52)
[2021-08-09] MEDS: Aspirin 81 mg Enteric Coated Tablet PO SCH (08:52)
[2021-08-09] MEDS: Apixaban 5 MG TAB PO SCH ×2 (08:52→20:04)
[2021-08-09] MEDS: Cefepime 2 GM in Sodium Chloride 0.9% 100 ML IVPB SCH (08:52)
[2021-08-09] MEDS ORDERED: Furosemide 40 MG TAB PO SCH ×2 (12:00)
[2021-08-09] MEDS: Atorvastatin Calcium 40 MG TAB PO SCH (20:04)
[2021-08-09] MEDS: Famotidine 20 MG TAB PO SCH (20:04)
[2021-08-10] MEDS: Acetaminophen 500 MG TAB PO PRN
[2021-08-10 05:12] LABS: #Eosinphils 0.3 thou/uL (0.0-0.7); #Lymphocytes 0.9 thou/uL (1.20-3.40); #Monocytes 0.5 thou/uL (0.11-0.59); #Neutrophils 2.5 thou/uL (1.40-6.50); %Basophils 0.4 % (0.0-1.0); %Lymphocytes 21.3 % (21.0-51.0); %Monocytes 12.3 % (0.0-10.0); Hemoglobin 11.8 g/dL (12.0-16.0); Mean Corpuscular HGB CONC 33.3 g/dL (32.0-36.0); Mean Corpuscular Hemoglobin 31.3 pg (27.0-31.0); Mean Corpuscular Volume 94.2 fL (78.0-98.0); Mean Platelet Volume 9.3 fL (7.4-10.4); Platelet Count 176 thou/uL (130-400); RBC Distribution Width 12.4 % (11.5-14.5); Red Blood Cell (RBC) Count 3.77 mill/uL (4.20-5.40); White Blood Cell (WBC) Count 4.2 thou/uL (4.8-10.8)
[2021-08-10 05:31] LABS: ALT (SGPT) 25 U/L (8-55); AST (SGOT) 18 U/L (5-34); Albumin 3.1 g/dL (3.4-4.8); Alkaline Phosphatase 114 U/L (40-110); Anion Gap 11 mmol/L (10-20); BUN (Urea Nitrogen) 21 mg/dL (9.8-20.1); Bilirubin, Total 0.4 mg/dL (0.2-1.2); Calc. Creatinine Clearance 59 mL/min (70-130); Calcium 10.8 mg/dL (7.8-10.44); Carbon Dioxide 27 mmol/L (23-31); Chloride 103 mmol/L (98-107); Globulin 3.4 g/dL (2.4-3.5); Glucose 99 mg/dL (80-115); Potassium 3.7 mmol/L (3.5-5.1); Protein, Total 6.5 g/dL (5.8-8.1); Sodium 137 mmol/L (136-145)
[2021-08-10] MEDS ORDERED: Furosemide 40 MG TAB PO SCH (07:30)
[2021-08-10 08:23] VITALS: TEMP 97.9
[2021-08-10] MEDS: Carvedilol 6.25 MG TAB PO SCH (08:23)
[2021-08-10] MEDS: Ezetimibe 10 MG TAB PO SCH (08:23)
[2021-08-10] MEDS: Isosorbide Mononitrate 20 MG TAB PO SCH (08:23)
[2021-08-10] MEDS: Apixaban 5 MG TAB PO SCH (08:24)
[2021-08-10] MEDS: Aspirin 81 mg Enteric Coated Tablet PO SCH (08:24)
[2021-08-10 12:18] VITALS: BP 104/59
== END 2021-08-10 11:18 | disposition home or self-care (01) | DRG 291 ==
LOC: ERS 14:21 → 2NO 17:25 → OBSVTOIN 08-07 13:21
PROVIDERS: ADMIT Internal Medicine; ATTEND Family Medicine
PROC: 4B02XTZ Measurement of Cardiac Defibrillator, External Approach (ICD-10-PCS; principal; 2021-08-09)
DX: I13.0 Hypertensive heart and chronic kidney disease with heart failure and stage 1 through stage 4 chronic kidney disease, or unspecified chronic kidney disease (principal); I50.23 Acute on chronic systolic (congestive) heart failure; I69.951 Hemiplegia and hemiparesis following unspecified cerebrovascular disease affecting right dominant side; N39.0 Urinary tract infection, site not specified; Z20.822 Contact with and (suspected) exposure to COVID-19; I25.10 Atherosclerotic heart disease of native coronary artery without angina pectoris; E11.22 Type 2 diabetes mellitus with diabetic chronic kidney disease; I48.0 Paroxysmal atrial fibrillation; I25.5 Ischemic cardiomyopathy; E78.00 Pure hypercholesterolemia, unspecified; B96.20 Unspecified Escherichia coli [E. coli] as the cause of diseases classified elsewhere; M62.838 Other muscle spasm; N18.30 Chronic kidney disease, stage 3 unspecified; R07.89 Other chest pain; R94.31 Abnormal electrocardiogram [ECG] [EKG]; Z95.1 Presence of aortocoronary bypass graft; Z95.810 Presence of automatic (implantable) cardiac defibrillator; Z79.899 Other long term (current) drug therapy; Z79.01 Long term (current) use of anticoagulants; Z91.14 Patient's other noncompliance with medication regimen; Z87.891 Personal history of nicotine dependence
CPT/HCPCS: 36415; 36416; 71045; 80048; 80053; 80202; 81003; 81015; 82550; 82553; 83690; 83735; 83880; 84439; 84443; 84481; 84484; 85025; 87040; 87077; 87086; 87186; 93005; 93306; 96374; 96375; 96376; G0378; J0692; J0696; J1940; J2405; J3370; J3490; U0003; U0005

== ENCOUNTER 2021-08-31 04:45 | Inpatient (IN) | payer MEDICARE, MEDICAID ==
[2021-08-31 06:08] LABS: #Eosinphils 0.1 thou/uL (0.0-0.7); #Lymphocytes 1.4 thou/uL (1.20-3.40); #Monocytes 0.4 thou/uL (0.11-0.59); #Neutrophils 4.5 thou/uL (1.40-6.50); %Basophils 0.3 % (0.0-1.0); %Eosinophils 1.2 % (0.0-10.0); %Lymphocytes 21.3 % (21.0-51.0); %Monocytes 6.5 % (0.0-10.0); %Neutrophils 70.8 % (42.0-75.0); Hemoglobin 12.1 g/dL (12.0-16.0); Mean Corpuscular HGB CONC 31.5 g/dL (32.0-36.0); Mean Corpuscular Hemoglobin 30.6 pg (27.0-31.0); Mean Corpuscular Volume 97.2 fL (78.0-98.0); Mean Platelet Volume 9.1 fL (7.4-10.4); Platelet Count 243 thou/uL (130-400); RBC Distribution Width 15.5 % (11.5-14.5); Red Blood Cell (RBC) Count 3.93 mill/uL (4.20-5.40); White Blood Cell (WBC) Count 6.3 thou/uL (4.8-10.8)
[2021-08-31 06:24] LABS: INR-International Normal Ratio 1.9; PTT 32.3 sec (22.9-36.1); Prothrombin Time 22.5 sec (12.0-14.7)
[2021-08-31] MEDS ORDERED: Ondansetron PF 4 MG/2 ML Vial ONE (06:28)
[2021-08-31 06:29] LABS: ALT (SGPT) 35 U/L (8-55); AST (SGOT) 19 U/L (5-34); Albumin 3.9 g/dL (3.4-4.8); Alkaline Phosphatase 230 U/L (40-110); Anion Gap 19 mmol/L (10-20); BUN (Urea Nitrogen) 64 mg/dL (9.8-20.1); Bilirubin, Total 2.3 mg/dL (0.2-1.2); Calc. Creatinine Clearance 0 mL/min (70-130); Calcium 10.9 mg/dL (7.8-10.44); Carbon Dioxide 20 mmol/L (23-31); Chloride 106 mmol/L (98-107); Globulin 2.9 g/dL (2.4-3.5); Glucose 144 mg/dL (80-115); Potassium 4.2 mmol/L (3.5-5.1); Protein, Total 6.8 g/dL (5.8-8.1); Sodium 141 mmol/L (136-145)
[2021-08-31] MEDS ORDERED: Ondansetron ODT 4 MG TAB PO PRN (10:57)
[2021-08-31] MEDS ORDERED: Acetaminophen 650 MG Suppository PR PRN (10:57)
[2021-08-31] MEDS ORDERED: Ondansetron PF 4 MG/2 ML Vial IVP PRN (10:57)
[2021-08-31] MEDS ORDERED: Carvedilol 6.25 MG TAB PO SCH ×2 (11:00→14:30)
[2021-08-31] MEDS ORDERED: Sodium Chloride 0.9% 1,000 ML IV SCH (11:15)
[2021-08-31] MEDS: Sodium Chloride 0.9% 1,000 ML IV SCH ×2 (12:23→23:51)
[2021-08-31 13:18] LABS: SARS-CoV-2 PCR by NAA Not Detected (NotDetected)
[2021-08-31] MEDS ORDERED: Metoprolol Tartrate 5 MG/5 ML VIAL IVP SCH (14:21)
[2021-08-31] MEDS ORDERED: Metoprolol Tartrate 5 MG/5 ML VIAL ONE (14:56)
[2021-08-31 17:04] LABS: Hemoglobin 11.9 g/dL (12.0-16.0)
[2021-08-31 17:54] LABS: CKMB 1.9 ng/mL (0-6.6)
[2021-08-31] MEDS: Atorvastatin Calcium 40 MG TAB PO SCH (20:51)
[2021-08-31] MEDS: Carvedilol 6.25 MG TAB PO SCH (20:51)
[2021-08-31 21:28] LABS: CKMB 1.5 ng/mL (0-6.6)
[2021-09-01 05:20] LABS: #Eosinphils 0.3 thou/uL (0.0-0.7); #Lymphocytes 1.2 thou/uL (1.20-3.40); #Monocytes 0.5 thou/uL (0.11-0.59); #Neutrophils 3.2 thou/uL (1.40-6.50); %Lymphocytes 23.8 % (21.0-51.0); %Monocytes 10.3 % (0.0-10.0); %Neutrophils 60.9 % (42.0-75.0); Hemoglobin 10.7 g/dL (12.0-16.0); Mean Corpuscular HGB CONC 31.4 g/dL (32.0-36.0); Mean Corpuscular Hemoglobin 30.2 pg (27.0-31.0); Mean Corpuscular Volume 96.4 fL (78.0-98.0); Mean Platelet Volume 9.3 fL (7.4-10.4); Platelet Count 194 thou/uL (130-400); RBC Distribution Width 15.2 % (11.5-14.5); Red Blood Cell (RBC) Count 3.55 mill/uL (4.20-5.40); White Blood Cell (WBC) Count 5.2 thou/uL (4.8-10.8)
[2021-09-01 05:40] LABS: Anion Gap 14 mmol/L (10-20); BUN (Urea Nitrogen) 58 mg/dL (9.8-20.1); Calc. Creatinine Clearance 28 mL/min (70-130); Calcium 9.9 mg/dL (7.8-10.44); Carbon Dioxide 18 mmol/L (23-31); Chloride 109 mmol/L (98-107); Glucose 112 mg/dL (80-115); Sodium 137 mmol/L (136-145)
[2021-09-01] MEDS: Carvedilol 6.25 MG TAB PO SCH ×2 (09:37→21:35)
[2021-09-01] MEDS: Ezetimibe 10 MG TAB PO SCH (09:37)
[2021-09-01] MEDS ORDERED: Digoxin 0.5 MG/2 ML AMP SLOW IVP SCH (19:00)
[2021-09-01] MEDS: Atorvastatin Calcium 40 MG TAB PO SCH (20:28)
[2021-09-02] MEDS: Digoxin 0.5 MG/2 ML AMP SLOW IVP SCH ×3 (02:42→14:34)
[2021-09-02 05:17] LABS: #Eosinphils 0.3 thou/uL (0.0-0.7); #Monocytes 0.5 thou/uL (0.11-0.59); #Neutrophils 2.9 thou/uL (1.40-6.50); %Basophils 0.3 % (0.0-1.0); %Eosinophils 5.4 % (0.0-10.0); %Lymphocytes 21.6 % (21.0-51.0); %Neutrophils 62.7 % (42.0-75.0); Hemoglobin 10.4 g/dL (12.0-16.0); Mean Corpuscular HGB CONC 31.7 g/dL (32.0-36.0); Mean Corpuscular Hemoglobin 31.1 pg (27.0-31.0); Mean Corpuscular Volume 98.2 fL (78.0-98.0); Mean Platelet Volume 9.2 fL (7.4-10.4); Platelet Count 190 thou/uL (130-400); RBC Distribution Width 15.2 % (11.5-14.5); Red Blood Cell (RBC) Count 3.36 mill/uL (4.20-5.40); White Blood Cell (WBC) Count 4.7 thou/uL (4.8-10.8)
[2021-09-02 05:38] LABS: Anion Gap 14 mmol/L (10-20); BUN (Urea Nitrogen) 54 mg/dL (9.8-20.1); Calc. Creatinine Clearance 29 mL/min (70-130); Calcium 9.8 mg/dL (7.8-10.44); Carbon Dioxide 17 mmol/L (23-31); Chloride 108 mmol/L (98-107); Glucose 114 mg/dL (80-115); Sodium 135 mmol/L (136-145)
[2021-09-02] MEDS: Ezetimibe 10 MG TAB PO SCH (08:34)
[2021-09-02] MEDS: Carvedilol 6.25 MG TAB PO SCH ×2 (08:34→21:06)
[2021-09-02] MEDS ORDERED: Aspirin 325 MG TAB PO SCH (11:15)
[2021-09-02 12:03] LABS: INR-International Normal Ratio 1.2; PTT 28.5 sec (22.9-36.1); Prothrombin Time 15.6 sec (12.0-14.7)
[2021-09-02] MEDS: Atorvastatin Calcium 40 MG TAB PO SCH (21:06)
[2021-09-03 04:58] LABS: Anion Gap 12 mmol/L (10-20); BUN (Urea Nitrogen) 37 mg/dL (9.8-20.1); Calc. Creatinine Clearance 42 mL/min (70-130); Calcium 9.5 mg/dL (7.8-10.44); Carbon Dioxide 19 mmol/L (23-31); Cardiac Risk 3.8 (Less than 4.5); Chloride 112 mmol/L (98-107); Cholesterol 96 mg/dl (< 200 Desired); Glucose 103 mg/dL (80-115); HDL Cholesterol 25 mg/dL (>60 Neg Risk); LDL Cholesterol, Calculated 56 mg/dL; Potassium 4.2 mmol/L (3.5-5.1); Sodium 139 mmol/L (136-145); Triglycerides 75 mg/dL (Less than 150)
[2021-09-03 06:08] LABS: #Basophils 0.1 thou/uL (0.0-0.2); #Eosinphils 0.3 thou/uL (0.0-0.7); #Lymphocytes 0.7 thou/uL (1.20-3.40); #Monocytes 0.6 thou/uL (0.11-0.59); #Neutrophils 4.4 thou/uL (1.40-6.50); %Basophils 1.2 % (0.0-1.0); %Eosinophils 4.4 % (0.0-10.0); %Lymphocytes 11.5 % (21.0-51.0); %Monocytes 9.2 % (0.0-10.0); %Neutrophils 73.7 % (42.0-75.0); Hemoglobin 10.9 g/dL (12.0-16.0); Mean Corpuscular HGB CONC 30.7 g/dL (32.0-36.0); Mean Corpuscular Hemoglobin 30.9 pg (27.0-31.0); Platelet Count 195 thou/uL (130-400); RBC Distribution Width 15.1 % (11.5-14.5); Red Blood Cell (RBC) Count 3.53 mill/uL (4.20-5.40); White Blood Cell (WBC) Count 5.9 thou/uL (4.8-10.8)
[2021-09-03] MEDS: Acetaminophen 325 MG TAB PO PRN (09:41)
[2021-09-03] MEDS: Enoxaparin Sodium 100 MG/ML SYRINGE SC SCH (09:41)
[2021-09-03] MEDS: Digoxin 0.125 MG TAB PO SCH (09:42)
[2021-09-03] MEDS: Ezetimibe 10 MG TAB PO SCH (09:42)
[2021-09-03] MEDS: Carvedilol 6.25 MG TAB PO SCH ×2 (09:42→21:49)
[2021-09-03] MEDS: Atorvastatin Calcium 40 MG TAB PO SCH (21:48)
[2021-09-04] MEDS: Acetaminophen 325 MG TAB PO PRN (00:54)
[2021-09-04] MEDS ORDERED: Acetaminophen 650 MG Suppository PR PRN (01:30)
[2021-09-04] MEDS ORDERED: Gabapentin 100 MG CAP PO SCH (02:00)
[2021-09-04 05:14] LABS: #Eosinphils 0.2 thou/uL (0.0-0.7); #Lymphocytes 0.8 thou/uL (1.20-3.40); #Monocytes 0.5 thou/uL (0.11-0.59); #Neutrophils 3.9 thou/uL (1.40-6.50); %Basophils 0.1 % (0.0-1.0); %Eosinophils 4.2 % (0.0-10.0); %Lymphocytes 15.1 % (21.0-51.0); %Monocytes 8.9 % (0.0-10.0); %Neutrophils 71.7 % (42.0-75.0); Hemoglobin 11.7 g/dL (12.0-16.0); Mean Corpuscular HGB CONC 31.3 g/dL (32.0-36.0); Mean Corpuscular Hemoglobin 30.7 pg (27.0-31.0); Mean Corpuscular Volume 97.9 fL (78.0-98.0); Mean Platelet Volume 9.2 fL (7.4-10.4); Platelet Count 186 thou/uL (130-400); RBC Distribution Width 14.9 % (11.5-14.5); Red Blood Cell (RBC) Count 3.81 mill/uL (4.20-5.40); White Blood Cell (WBC) Count 5.5 thou/uL (4.8-10.8)
[2021-09-04 05:31] LABS: Iron 34 ug/dL (50-170); Iron Binding Capacity, Total 279 mcg/dL (265-497)
[2021-09-04 05:33] LABS: Anion Gap 11 mmol/L (10-20); BUN (Urea Nitrogen) 24 mg/dL (9.8-20.1); Calc. Creatinine Clearance 52 mL/min (70-130); Carbon Dioxide 21 mmol/L (23-31); Chloride 113 mmol/L (98-107); Glucose 86 mg/dL (80-115); Potassium 4.5 mmol/L (3.5-5.1); Sodium 140 mmol/L (136-145)
[2021-09-04] MEDS: Carvedilol 6.25 MG TAB PO SCH ×2 (10:08→22:38)
[2021-09-04] MEDS: Gabapentin 100 MG CAP PO SCH (10:08)
[2021-09-04] MEDS: Ezetimibe 10 MG TAB PO SCH (10:08)
[2021-09-04] MEDS: Digoxin 0.125 MG TAB PO SCH (10:08)
[2021-09-04] MEDS: Enoxaparin Sodium 100 MG/ML SYRINGE SC SCH ×2 (10:09→22:35)
[2021-09-04] MEDS: Atorvastatin Calcium 40 MG TAB PO SCH (22:37)
[2021-09-05] MEDS: Acetaminophen 325 MG TAB PO PRN (00:35)
[2021-09-05 04:58] LABS: #Eosinphils 0.3 thou/uL (0.0-0.7); #Monocytes 0.6 thou/uL (0.11-0.59); #Neutrophils 2.9 thou/uL (1.40-6.50); %Eosinophils 5.9 % (0.0-10.0); %Lymphocytes 21.2 % (21.0-51.0); %Monocytes 12.7 % (0.0-10.0); %Neutrophils 60.3 % (42.0-75.0); Hemoglobin 11.1 g/dL (12.0-16.0); Mean Corpuscular HGB CONC 31.6 g/dL (32.0-36.0); Mean Corpuscular Hemoglobin 31.3 pg (27.0-31.0); Mean Corpuscular Volume 98.8 fL (78.0-98.0); Mean Platelet Volume 9.3 fL (7.4-10.4); Platelet Count 184 thou/uL (130-400); RBC Distribution Width 14.7 % (11.5-14.5); Red Blood Cell (RBC) Count 3.56 mill/uL (4.20-5.40); White Blood Cell (WBC) Count 4.9 thou/uL (4.8-10.8)
[2021-09-05 05:33] LABS: Anion Gap 7 mmol/L (10-20); BUN (Urea Nitrogen) 19 mg/dL (9.8-20.1); Calc. Creatinine Clearance 59 mL/min (70-130); Calcium 9.6 mg/dL (7.8-10.44); Carbon Dioxide 22 mmol/L (23-31); Chloride 112 mmol/L (98-107); Glucose 84 mg/dL (80-115); Potassium 4.4 mmol/L (3.5-5.1); Sodium 137 mmol/L (136-145)
[2021-09-05 05:41] LABS: Digoxin 2.48 ng/mL (0.8-2.0)
[2021-09-05] MEDS ORDERED: Furosemide 20 MG TAB PO SCH (08:45)
[2021-09-05] MEDS: Gabapentin 100 MG CAP PO SCH (09:19)
[2021-09-05] MEDS: Ferrous Sulfate 325 MG TAB PO SCH (09:20)
[2021-09-05] MEDS: Ezetimibe 10 MG TAB PO SCH (09:21)
[2021-09-05] MEDS: Carvedilol 6.25 MG TAB PO SCH ×2 (09:21→21:50)
[2021-09-05] MEDS: Enoxaparin Sodium 100 MG/ML SYRINGE SC SCH ×2 (09:22→21:52)
[2021-09-05] MEDS: Atorvastatin Calcium 40 MG TAB PO SCH (21:51)
[2021-09-06 05:12] LABS: #Eosinphils 0.2 thou/uL (0.0-0.7); #Lymphocytes 0.8 thou/uL (1.20-3.40); #Monocytes 0.5 thou/uL (0.11-0.59); %Basophils 0.2 % (0.0-1.0); %Eosinophils 5.2 % (0.0-10.0); %Lymphocytes 18.2 % (21.0-51.0); %Monocytes 11.4 % (0.0-10.0); Hemoglobin 11.4 g/dL (12.0-16.0); Mean Corpuscular HGB CONC 31.5 g/dL (32.0-36.0); Mean Corpuscular Hemoglobin 30.8 pg (27.0-31.0); Mean Corpuscular Volume 97.6 fL (78.0-98.0); Mean Platelet Volume 9.3 fL (7.4-10.4); Platelet Count 170 thou/uL (130-400); RBC Distribution Width 14.6 % (11.5-14.5); Red Blood Cell (RBC) Count 3.71 mill/uL (4.20-5.40); White Blood Cell (WBC) Count 4.5 thou/uL (4.8-10.8)
[2021-09-06 05:34] LABS: Anion Gap 13 mmol/L (10-20); BUN (Urea Nitrogen) 17 mg/dL (9.8-20.1); Calc. Creatinine Clearance 59 mL/min (70-130); Calcium 9.7 mg/dL (7.8-10.44); Carbon Dioxide 21 mmol/L (23-31); Chloride 110 mmol/L (98-107); Glucose 81 mg/dL (80-115); Potassium 4.4 mmol/L (3.5-5.1); Sodium 140 mmol/L (136-145)
[2021-09-06 05:41] LABS: Digoxin 1.64 ng/mL (0.8-2.0)
[2021-09-06] MEDS ORDERED: Apixaban 5 MG TAB PO SCH (09:00)
[2021-09-06] MEDS ORDERED: Apixaban 2.5 MG TAB PO SCH (09:25)
[2021-09-06] MEDS: Gabapentin 100 MG CAP PO SCH (09:26)
[2021-09-06] MEDS: Furosemide 40 MG TAB PO SCH (09:27)
[2021-09-06] MEDS: Carvedilol 6.25 MG TAB PO SCH ×2 (09:27→21:42)
[2021-09-06] MEDS: Ferrous Sulfate 325 MG TAB PO SCH (09:27)
[2021-09-06] MEDS: Ezetimibe 10 MG TAB PO SCH (09:28)
[2021-09-06] MEDS: Enoxaparin Sodium 100 MG/ML SYRINGE SC SCH (09:28)
[2021-09-06] MEDS: Atorvastatin Calcium 40 MG TAB PO SCH (21:41)
[2021-09-06] MEDS: Apixaban 5 MG TAB PO SCH (21:42)
[2021-09-06 23:11] LABS: SARS-CoV-2 PCR by NAA Not Detected (NotDetected)
[2021-09-07 06:20] LABS: #Eosinphils 0.3 thou/uL (0.0-0.7); #Lymphocytes 1.1 thou/uL (1.20-3.40); #Monocytes 0.5 thou/uL (0.11-0.59); #Neutrophils 2.2 thou/uL (1.40-6.50); %Basophils 0.1 % (0.0-1.0); %Eosinophils 7.8 % (0.0-10.0); %Lymphocytes 26.2 % (21.0-51.0); %Monocytes 11.8 % (0.0-10.0); %Neutrophils 54.1 % (42.0-75.0); Anion Gap 12 mmol/L (10-20); BUN (Urea Nitrogen) 15 mg/dL (9.8-20.1); Calc. Creatinine Clearance 58 mL/min (70-130); Calcium 10.4 mg/dL (7.8-10.44); Carbon Dioxide 23 mmol/L (23-31); Chloride 107 mmol/L (98-107); Digoxin 1.28 ng/mL (0.8-2.0); Glucose 94 mg/dL (80-115); Hemoglobin 11.7 g/dL (12.0-16.0); Mean Corpuscular HGB CONC 30.9 g/dL (32.0-36.0); Mean Corpuscular Hemoglobin 30.1 pg (27.0-31.0); Mean Corpuscular Volume 97.4 fL (78.0-98.0); Mean Platelet Volume 9.4 fL (7.4-10.4); Platelet Count 190 thou/uL (130-400); Potassium 4.2 mmol/L (3.5-5.1); RBC Distribution Width 14.8 % (11.5-14.5); Red Blood Cell (RBC) Count 3.89 mill/uL (4.20-5.40); Sodium 138 mmol/L (136-145); White Blood Cell (WBC) Count 4.1 thou/uL (4.8-10.8)
[2021-09-07] MEDS: Carvedilol 6.25 MG TAB PO SCH ×2 (10:15→20:40)
[2021-09-07] MEDS: Gabapentin 100 MG CAP PO SCH (10:16)
[2021-09-07] MEDS: Apixaban 5 MG TAB PO SCH ×2 (10:18→20:40)
[2021-09-07] MEDS: Ezetimibe 10 MG TAB PO SCH (10:18)
[2021-09-07] MEDS: Ferrous Sulfate 325 MG TAB PO SCH (10:18)
[2021-09-07] MEDS ORDERED: PROPOFOL 20 ML ONE (11:46)
[2021-09-07] MEDS ORDERED: Sodium Chloride 0.9% 10 ML ONE (15:45)
[2021-09-07] MEDS ORDERED: Ketamine 50 MG/ML (10ML VIAL) ONE (16:20)
[2021-09-07] MEDS ORDERED: Benzocaine 20% Spray 60 ML CAN ONE (16:23)
[2021-09-07] MEDS: Furosemide 40 MG TAB PO SCH (18:21)
[2021-09-07] MEDS: Atorvastatin Calcium 40 MG TAB PO SCH (20:40)
[2021-09-08] MEDS: Acetaminophen 325 MG TAB PO PRN (04:12)
[2021-09-08] MEDS ORDERED: Polyethylene Glycol 3350 17 GM Packet PO PRN (04:29)
[2021-09-08 05:06] LABS: #Eosinphils 0.3 thou/uL (0.0-0.7); #Lymphocytes 1.1 thou/uL (1.20-3.40); #Monocytes 0.5 thou/uL (0.11-0.59); #Neutrophils 2.7 thou/uL (1.40-6.50); %Basophils 0.5 % (0.0-1.0); %Eosinophils 6.1 % (0.0-10.0); %Lymphocytes 22.7 % (21.0-51.0); %Monocytes 11.4 % (0.0-10.0); %Neutrophils 59.3 % (42.0-75.0); Hemoglobin 12.2 g/dL (12.0-16.0); Mean Corpuscular HGB CONC 31.5 g/dL (32.0-36.0); Mean Corpuscular Hemoglobin 30.3 pg (27.0-31.0); Mean Corpuscular Volume 96.3 fL (78.0-98.0); Platelet Count 191 thou/uL (130-400); RBC Distribution Width 14.8 % (11.5-14.5); Red Blood Cell (RBC) Count 4.01 mill/uL (4.20-5.40); White Blood Cell (WBC) Count 4.6 thou/uL (4.8-10.8)
[2021-09-08 05:27] LABS: Anion Gap 10 mmol/L (10-20); BUN (Urea Nitrogen) 18 mg/dL (9.8-20.1); Calc. Creatinine Clearance 48 mL/min (70-130); Calcium 10.7 mg/dL (7.8-10.44); Carbon Dioxide 27 mmol/L (23-31); Chloride 109 mmol/L (98-107); Glucose 135 mg/dL (80-115); Magnesium 1.7 mg/dL (1.6-2.6); Phosphorus 2.5 mg/dL (2.3-4.7); Potassium 4.2 mmol/L (3.5-5.1); Sodium 142 mmol/L (136-145)
[2021-09-08] MEDS ORDERED: Bisacodyl 5 MG TAB PO PRN (09:33)
[2021-09-08] MEDS ORDERED: Bisacodyl 10 MG SUPP PR PRN (09:33)
[2021-09-08] MEDS ORDERED: Senokot S 8.6-50 MG TAB PO SCH ×2 (09:45→21:00)
[2021-09-08] MEDS ORDERED: Polyethylene Glycol 3350 17 GM Packet PO SCH (09:45)
[2021-09-08] MEDS: Gabapentin 100 MG CAP PO SCH (10:06)
[2021-09-08] MEDS: Milk Of Magnesia 30 ML UDCUP PO SCH ×2 (10:07→10:27)
[2021-09-08] MEDS: Ferrous Sulfate 325 MG TAB PO SCH (10:07)
[2021-09-08] MEDS: Ezetimibe 10 MG TAB PO SCH (10:07)
[2021-09-08] MEDS: Furosemide 40 MG TAB PO SCH (10:07)
[2021-09-08] MEDS: Carvedilol 6.25 MG TAB PO SCH (10:08)
[2021-09-08] MEDS: Apixaban 5 MG TAB PO SCH (10:08)
[2021-09-08 14:43] VITALS: BMI 27.5
[2021-09-08 16:04] LABS: Bacteria/HPF None Seen HPF (None Seen); Bilirubin Negative (Negative); Blood, Urine Negative (Negative); Clarity Clear (Clear); Glucose, Urine (Dipstick) Normal (Negative); Ketone, Urine Negative (Negative); Leukocyte 75 Leu/uL (Negative); Nitrite Negative (Negative); Protein, Urine (Dipstick) Negative (Neg-Trace); RBC/HPF 0-3 HPF (0-3); Specific Gravity, Urine 1.017 (1.002-1.036); Squamous Epithelial 0-3 HPF (0-3); WBC/HPF 0-3 HPF (0-3)
[2021-09-08 16:07] LABS: Urine Culture Reflex Yes Yes
[2021-09-08 16:55] VITALS: BP 137/82; TEMP 97.6
[2021-09-09] MEDS ORDERED: Milk Of Magnesia 30 ML UDCUP PO SCH (09:00)
[2021-09-09] MEDS ORDERED: Polyethylene Glycol 3350 17 GM Packet PO SCH (09:00)
[2021-09-10] MEDS ORDERED: Ergocalciferol 1.25 MG(50,000 UNITS) CAP PO SCH (09:00)
== END 2021-09-08 18:14 | disposition home or self-care (01) | DRG 377 ==
LOC: ERS 04:45 → ERHOLD 07:55 → 2NO 16:25
PROVIDERS: ADMIT Internal Medicine; ATTEND Family Medicine
PROC: 5A2204Z Restoration of Cardiac Rhythm, Single (ICD-10-PCS; principal; 2021-09-07)
PROC: B24BZZ4 Ultrasonography of Heart with Aorta, Transesophageal (ICD-10-PCS; 2021-09-07)
DX: K92.1 Melena (principal); I50.23 Acute on chronic systolic (congestive) heart failure; I13.0 Hypertensive heart and chronic kidney disease with heart failure and stage 1 through stage 4 chronic kidney disease, or unspecified chronic kidney disease; I69.954 Hemiplegia and hemiparesis following unspecified cerebrovascular disease affecting left non-dominant side; N17.9 Acute kidney failure, unspecified; N18.4 Chronic kidney disease, stage 4 (severe); N25.81 Secondary hyperparathyroidism of renal origin; I48.19 Other persistent atrial fibrillation; Z20.822 Contact with and (suspected) exposure to COVID-19; F32.A Depression, unspecified; E78.5 Hyperlipidemia, unspecified; I25.10 Atherosclerotic heart disease of native coronary artery without angina pectoris; E11.22 Type 2 diabetes mellitus with diabetic chronic kidney disease; E83.52 Hypercalcemia; E88.09 Other disorders of plasma-protein metabolism, not elsewhere classified; D63.1 Anemia in chronic kidney disease; I25.5 Ischemic cardiomyopathy; I44.7 Left bundle-branch block, unspecified; E03.9 Hypothyroidism, unspecified; Z87.891 Personal history of nicotine dependence; Z79.51 Long term (current) use of inhaled steroids; Z95.810 Presence of automatic (implantable) cardiac defibrillator; Z95.1 Presence of aortocoronary bypass graft; Z79.01 Long term (current) use of anticoagulants; Z79.899 Other long term (current) drug therapy; Z90.710 Acquired absence of both cervix and uterus
CPT/HCPCS: 36415; 36416; 70450; 71045; 74176; 76770; 80048; 80053; 80061; 80162; 81001; 82274; 82306; 82553; 82607; 82728; 82746; 83540; 83550; 83735; 83880; 83970; 84100; 84484; 85025; 85610; 85730; 86850; 86900; 86901; 87086; 92960; 93005; 93010; 93312; J1160; J1650; J2405; J2704; J7050; U0003; U0005

== ENCOUNTER 2021-09-14 09:31 | Inpatient (IN) | payer MEDICARE, MEDICAID ==
[2021-09-14] MEDS ORDERED: Ondansetron PF 4 MG/2 ML Vial ONE (09:50)
[2021-09-14] MEDS ORDERED: Diltiazem 125 MG/25 ML ONE (10:03)
[2021-09-14 10:12] LABS: #Eosinphils 0.2 thou/uL (0.0-0.7); #Lymphocytes 2.3 thou/uL (1.20-3.40); #Monocytes 0.4 thou/uL (0.11-0.59); %Basophils 0.7 % (0.0-1.0); %Eosinophils 2.3 % (0.0-10.0); %Lymphocytes 33.4 % (21.0-51.0); %Monocytes 5.7 % (0.0-10.0); %Neutrophils 57.9 % (42.0-75.0); Hemoglobin 12.4 g/dL (12.0-16.0); Mean Corpuscular HGB CONC 31.6 g/dL (32.0-36.0); Mean Corpuscular Hemoglobin 30.9 pg (27.0-31.0); Mean Corpuscular Volume 97.9 fL (78.0-98.0); Mean Platelet Volume 8.9 fL (7.4-10.4); Platelet Count 235 thou/uL (130-400); RBC Distribution Width 15.4 % (11.5-14.5); Red Blood Cell (RBC) Count 4.03 mill/uL (4.20-5.40); White Blood Cell (WBC) Count 6.9 thou/uL (4.8-10.8)
[2021-09-14 10:33] LABS: ALT (SGPT) 25 U/L (8-55); AST (SGOT) 30 U/L (5-34); Albumin 3.7 g/dL (3.4-4.8); Alkaline Phosphatase 141 U/L (40-110); Anion Gap 12 mmol/L (10-20); BUN (Urea Nitrogen) 13 mg/dL (9.8-20.1); Bilirubin, Total 1.2 mg/dL (0.2-1.2); Calc. Creatinine Clearance 0 mL/min (70-130); Calcium 10.8 mg/dL (7.8-10.44); Carbon Dioxide 24 mmol/L (23-31); Chloride 109 mmol/L (98-107); Globulin 3.1 g/dL (2.4-3.5); Glucose 174 mg/dL (80-115); Potassium 3.7 mmol/L (3.5-5.1); Protein, Total 6.8 g/dL (5.8-8.1); Sodium 141 mmol/L (136-145)
[2021-09-14 10:54] LABS: CKMB 1.5 ng/mL (0-6.6)
[2021-09-14] MEDS ORDERED: Amiodarone 150 MG, Admixture Fee 1 EACH in Dextrose 5% in Water 100 ML IVPB SCH (11:15)
[2021-09-14] MEDS ORDERED: Amiodarone 450 MG, Admixture Fee 1 EACH in Dextrose 5% in Water 250 ML IVPB SCH (11:15)
[2021-09-14] MEDS ORDERED: Diltiazem 125 MG in Sodium Chloride 0.9% 100 ML IVPB SCH (11:30)
[2021-09-14] MEDS ORDERED: Enoxaparin Sodium 40 MG/0.4 ML SYRINGE SC SCH (12:15)
[2021-09-14] MEDS ORDERED: Furosemide 40 MG/4 ML VIAL SLOW IVP SCH ×2 (12:30→17:30)
[2021-09-14] MEDS ORDERED: Apixaban 5 MG TAB PO SCH (12:45)
[2021-09-14 12:47] LABS: Magnesium 1.7 mg/dL (1.6-2.6)
[2021-09-14 13:12] LABS: Free T4 (Free Thyroxine) 1.13 ng/dL (0.70-1.48); Thyroid Stimulating Hormone 2.3302 uIU/mL (0.35-4.94)
[2021-09-14] MEDS ORDERED: Furosemide 40 MG/4 ML VIAL ONE (13:54)
[2021-09-14 14:58] LABS: Troponin I 0.085 ng/mL (< 0.028)
[2021-09-14 16:40] LABS: SARS-CoV-2 NAA Rapid Test Not Detected (NotDetected)
[2021-09-14 17:20] LABS: Troponin I 0.085 ng/mL (< 0.028)
[2021-09-14] MEDS: Carvedilol 6.25 MG TAB PO SCH (20:31)
[2021-09-14] MEDS: Senokot S 8.6-50 MG TAB PO SCH (20:31)
[2021-09-14] MEDS: Atorvastatin Calcium 40 MG TAB PO SCH (20:31)
[2021-09-14] MEDS: Apixaban 5 MG TAB PO SCH (20:31)
[2021-09-15] MEDS: Furosemide 40 MG/4 ML VIAL SLOW IVP SCH ×2 (05:35→15:16)
[2021-09-15] MEDS: Senokot S 8.6-50 MG TAB PO SCH ×2 (08:42→19:58)
[2021-09-15] MEDS: Apixaban 5 MG TAB PO SCH ×2 (08:42→19:58)
[2021-09-15] MEDS: Carvedilol 6.25 MG TAB PO SCH ×2 (08:45→19:58)
[2021-09-15] MEDS ORDERED: Enoxaparin Sodium 40 MG/0.4 ML SYRINGE SC SCH (09:00)
[2021-09-15] MEDS ORDERED: Polyethylene Glycol 3350 17 GM Packet PO SCH (09:00)
[2021-09-15] MEDS ORDERED: Milk Of Magnesia 30 ML UDCUP PO SCH (09:00)
[2021-09-15] MEDS ORDERED: Ezetimibe 10 MG TAB PO SCH (09:00)
[2021-09-15] MEDS ORDERED: Gabapentin 100 MG CAP PO SCH (09:00)
[2021-09-15 14:10] VITALS: BMI 27.5
[2021-09-15] MEDS ORDERED: FLU VACC QS2021-22(65YR UP)/PF 240 MCG/0.7 ML SYRINGE IM ONE (15:00)
[2021-09-15] MEDS ORDERED: Spironolactone 25 MG TAB PO SCH (15:00)
[2021-09-15] MEDS: hydrALAZINE 25 MG TAB PO SCH ×2 (15:17→19:58)
[2021-09-15 15:30] LABS: #Eosinphils 0.2 thou/uL (0.0-0.7); #Lymphocytes 0.9 thou/uL (1.20-3.40); #Monocytes 0.5 thou/uL (0.11-0.59); #Neutrophils 3.5 thou/uL (1.40-6.50); %Basophils 0.4 % (0.0-1.0); %Eosinophils 3.8 % (0.0-10.0); %Lymphocytes 17.4 % (21.0-51.0); %Monocytes 9.1 % (0.0-10.0); %Neutrophils 69.3 % (42.0-75.0); Hemoglobin 11.1 g/dL (12.0-16.0); Mean Corpuscular HGB CONC 30.9 g/dL (32.0-36.0); Mean Corpuscular Hemoglobin 30.3 pg (27.0-31.0); Mean Corpuscular Volume 98.1 fL (78.0-98.0); Mean Platelet Volume 8.9 fL (7.4-10.4); Platelet Count 168 thou/uL (130-400); RBC Distribution Width 15.2 % (11.5-14.5); Red Blood Cell (RBC) Count 3.65 mill/uL (4.20-5.40)
[2021-09-15 15:40] LABS: Anion Gap 19 mmol/L (10-20); BUN (Urea Nitrogen) 15 mg/dL (9.8-20.1); Calc. Creatinine Clearance 39 mL/min (70-130); Calcium 9.5 mg/dL (7.8-10.44); Carbon Dioxide 18 mmol/L (23-31); Chloride 107 mmol/L (98-107); Glucose 126 mg/dL (80-115); Magnesium 1.5 mg/dL (1.6-2.6); Phosphorus 2.9 mg/dL (2.3-4.7); Potassium 3.5 mmol/L (3.5-5.1); Sodium 140 mmol/L (136-145)
[2021-09-15 15:56] VITALS: TEMP 97.9
[2021-09-15] MEDS ORDERED: Electrolyte Replacement Protocol 1 EACH FS SCH (16:45)
[2021-09-15] MEDS ORDERED: Magnesium 2 GM/50 ML 2 GM in Premix Bag 1 BAG IVPB SCH (16:45)
[2021-09-15] MEDS ORDERED: Potassium Chloride 20 MEQ TAB PO SCH (17:00)
[2021-09-15] MEDS: Atorvastatin Calcium 40 MG TAB PO SCH (19:57)
[2021-09-15 19:59] VITALS: BP 116/70
[2021-09-16] MEDS ORDERED: Spironolactone 25 MG TAB PO SCH (08:00)
== END 2021-09-15 20:25 | disposition short-term general hospital (02) | DRG 309 ==
LOC: ERS 09:31 → ERHOLD 12:09 → 2NO 15:06
PROVIDERS: ADMIT Internal Medicine; ATTEND Family Medicine
PROC: 4B02XTZ Measurement of Cardiac Defibrillator, External Approach (ICD-10-PCS; principal; 2021-09-14)
DX: I47.2 Ventricular tachycardia (principal); I13.0 Hypertensive heart and chronic kidney disease with heart failure and stage 1 through stage 4 chronic kidney disease, or unspecified chronic kidney disease; I50.22 Chronic systolic (congestive) heart failure; I25.5 Ischemic cardiomyopathy; I48.0 Paroxysmal atrial fibrillation; I44.7 Left bundle-branch block, unspecified; N18.9 Chronic kidney disease, unspecified; E78.5 Hyperlipidemia, unspecified; E78.00 Pure hypercholesterolemia, unspecified; E03.9 Hypothyroidism, unspecified; E05.90 Thyrotoxicosis, unspecified without thyrotoxic crisis or storm; Z95.810 Presence of automatic (implantable) cardiac defibrillator; Z79.899 Other long term (current) drug therapy; Z79.01 Long term (current) use of anticoagulants; Z95.1 Presence of aortocoronary bypass graft; Z87.442 Personal history of urinary calculi
CPT/HCPCS: 36415; 36416; 71045; 80048; 80053; 82553; 83735; 83880; 84100; 84439; 84443; 84481; 84484; 85025; 93005; 96365; 96366; 96375; J0282; J1940; J2405; J3475; J7070; U0002

== ENCOUNTER 2022-01-24 03:55 | Emergency (ER) | payer MEDICARE, MEDICAID ==
[2022-01-24 05:15] LABS: #Monocytes 0.5 thou/uL (0.11-0.59); #Neutrophils 6.3 thou/uL (1.40-6.50); %Basophils 0.3 % (0.0-1.0); %Eosinophils 0.4 % (0.0-10.0); %Lymphocytes 12.3 % (21.0-51.0); Hemoglobin 11.9 g/dL (12.0-16.0); Mean Corpuscular HGB CONC 31.4 g/dL (32.0-36.0); Mean Corpuscular Hemoglobin 29.7 pg (27.0-31.0); Mean Corpuscular Volume 94.5 fL (78.0-98.0); Mean Platelet Volume 9.2 fL (7.4-10.4); Platelet Count 273 thou/uL (130-400); RBC Distribution Width 16.3 % (11.5-14.5); Red Blood Cell (RBC) Count 4.03 mill/uL (4.20-5.40); White Blood Cell (WBC) Count 7.8 thou/uL (4.8-10.8)
[2022-01-24 05:24] LABS: INR-International Normal Ratio 2.6; PTT 34.8 sec (22.9-36.1); Prothrombin Time 28.7 sec (12.0-14.7)
[2022-01-24 05:27] LABS: ALT (SGPT) 77 U/L (8-55); AST (SGOT) 77 U/L (5-34); Albumin 3.6 g/dL (3.4-4.8); Alkaline Phosphatase 225 U/L (40-110); Anion Gap 22 mmol/L (10-20); BUN (Urea Nitrogen) 49 mg/dL (9.8-20.1); Bilirubin, Total 2.8 mg/dL (0.2-1.2); Calc. Creatinine Clearance 0 mL/min (70-130); Calcium 9.9 mg/dL (7.8-10.44); Carbon Dioxide 18 mmol/L (23-31); Chloride 106 mmol/L (98-107); Glucose 105 mg/dL (80-115); Potassium 4.6 mmol/L (3.5-5.1); Protein, Total 6.6 g/dL (5.8-8.1); Sodium 141 mmol/L (136-145)
[2022-01-24 06:54] LABS: Bilirubin Negative (Negative); Blood, Urine Negative (Negative); Clarity Turbid (Clear); Glucose, Urine (Dipstick) Normal (Negative); Ketone, Urine Negative (Negative); Leukocyte 500 Leu/uL (Negative); Mucous/LPF Rare LPF (<2+); Nitrite Negative (Negative); Protein, Urine (Dipstick) 20 mg/dL (Neg-Trace); RBC/HPF 0-3 HPF (0-3); Specific Gravity, Urine 1.013 (1.002-1.036); Squamous Epithelial 0-3 HPF (0-3); Urobilinogen Normal mg/dL (Less than 2)
[2022-01-24 06:55] LABS: Bacteria/HPF 1+ HPF (None Seen)
== END 2022-01-24 07:42 | disposition home or self-care (01) ==
LOC: ERS 03:55
DX: N39.0 Urinary tract infection, site not specified (principal); I11.0 Hypertensive heart disease with heart failure; I50.9 Heart failure, unspecified; E11.9 Type 2 diabetes mellitus without complications; E78.5 Hyperlipidemia, unspecified; Z87.891 Personal history of nicotine dependence; Z79.899 Other long term (current) drug therapy
CPT/HCPCS: 36415; 51701; 70450; 71045; 80053; 81003; 81015; 85025; 85610; 85730; 87086; 93005

== ENCOUNTER 2022-01-26 19:40 | Inpatient (IN) | payer OTHER, MEDICAID ==
[2022-01-26 20:37] LABS: #Lymphocytes 1.4 thou/uL (1.20-3.40); #Monocytes 0.7 thou/uL (0.11-0.59); #Neutrophils 4.6 thou/uL (1.40-6.50); %Basophils 0.1 % (0.0-1.0); %Eosinophils 0.6 % (0.0-10.0); %Monocytes 9.8 % (0.0-10.0); %Neutrophils 68.6 % (42.0-75.0); Hemoglobin 11.6 g/dL (12.0-16.0); Mean Corpuscular HGB CONC 30.5 g/dL (32.0-36.0); Mean Corpuscular Volume 94.8 fL (78.0-98.0); Mean Platelet Volume 9.6 fL (7.4-10.4); Platelet Count 238 thou/uL (130-400); RBC Distribution Width 16.2 % (11.5-14.5); Red Blood Cell (RBC) Count 4.01 mill/uL (4.20-5.40); White Blood Cell (WBC) Count 6.8 thou/uL (4.8-10.8)
[2022-01-26 20:56] LABS: ALT (SGPT) 145 U/L (8-55); AST (SGOT) 86 U/L (5-34); Albumin 3.5 g/dL (3.4-4.8); Alkaline Phosphatase 278 U/L (40-110); Anion Gap 23 mmol/L (10-20); BUN (Urea Nitrogen) 57 mg/dL (9.8-20.1); Calc. Creatinine Clearance 0 mL/min (70-130); Carbon Dioxide 16 mmol/L (23-31); Chloride 108 mmol/L (98-107); Estimated GFR 19; Globulin 2.8 g/dL (2.4-3.5); Glucose 118 mg/dL (80-115); Potassium 3.9 mmol/L (3.5-5.1); Protein, Total 6.3 g/dL (5.8-8.1); Sodium 143 mmol/L (136-145)
[2022-01-26 21:18] LABS: CKMB 3.7 ng/mL (0-6.6)
[2022-01-26] MEDS ORDERED: Ondansetron PF 4 MG/2 ML Vial IVP PRN (22:15)
[2022-01-26] MEDS ORDERED: Ondansetron ODT 4 MG TAB SL PRN (22:15)
[2022-01-26] MEDS ORDERED: Furosemide 40 MG/4 ML VIAL ONE (23:31)
[2022-01-26] MEDS ORDERED: Nitroglycerin 2% Ointment 1 INCH/1 GM Packet ONE (23:31)
[2022-01-27 00:46] LABS: CKMB 3.9 ng/mL (0-6.6)
[2022-01-27 01:39] VITALS: BMI 26.9
[2022-01-27] MEDS ORDERED: Aspirin Chewable 81 MG TAB PO SCH (09:00)
[2022-01-27] MEDS ORDERED: Enoxaparin Sodium 30 MG/0.3 ML SYRINGE SC SCH ×2 (09:00)
[2022-01-27] MEDS: Aspirin Chewable 81 MG TAB PO SCH (10:22)
[2022-01-27 14:12] LABS: Anion Gap 21 mmol/L (10-20); BUN (Urea Nitrogen) 55 mg/dL (9.8-20.1); Calc. Creatinine Clearance 32 mL/min (70-130); Calcium 10.1 mg/dL (7.8-10.44); Carbon Dioxide 17 mmol/L (23-31); Chloride 106 mmol/L (98-107); Estimated GFR 20; Glucose 134 mg/dL (80-115); Potassium 3.9 mmol/L (3.5-5.1); Sodium 140 mmol/L (136-145)
[2022-01-27] MEDS: Carvedilol 3.125 MG TAB PO SCH (17:52)
[2022-01-27] MEDS: Atorvastatin Calcium 40 MG TAB PO SCH (20:45)
[2022-01-27] MEDS: Apixaban 5 MG TAB PO SCH (20:46)
[2022-01-28] MEDS: Furosemide 40 MG/4 ML VIAL SLOW IVP SCH ×2 (06:14→15:29)
[2022-01-28 08:48] LABS: #Eosinphils 0.1 thou/uL (0.0-0.7); #Lymphocytes 0.8 thou/uL (1.20-3.40); #Monocytes 0.3 thou/uL (0.11-0.59); #Neutrophils 4.1 thou/uL (1.40-6.50); %Basophils 0.4 % (0.0-1.0); %Eosinophils 2.5 % (0.0-10.0); %Lymphocytes 14.5 % (21.0-51.0); %Monocytes 6.3 % (0.0-10.0); %Neutrophils 76.3 % (42.0-75.0); Hemoglobin 10.8 g/dL (12.0-16.0); Mean Corpuscular HGB CONC 30.8 g/dL (32.0-36.0); Mean Corpuscular Hemoglobin 29.8 pg (27.0-31.0); Mean Corpuscular Volume 96.7 fL (78.0-98.0); Mean Platelet Volume 9.4 fL (7.4-10.4); Platelet Count 192 thou/uL (130-400); RBC Distribution Width 16.1 % (11.5-14.5); Red Blood Cell (RBC) Count 3.61 mill/uL (4.20-5.40); White Blood Cell (WBC) Count 5.4 thou/uL (4.8-10.8)
[2022-01-28 09:07] LABS: Anion Gap 16 mmol/L (10-20); BUN (Urea Nitrogen) 52 mg/dL (9.8-20.1); Calc. Creatinine Clearance 34 mL/min (70-130); Calcium 9.7 mg/dL (7.8-10.44); Carbon Dioxide 20 mmol/L (23-31); Chloride 107 mmol/L (98-107); Estimated GFR 22; Glucose 133 mg/dL (80-115); Potassium 3.7 mmol/L (3.5-5.1); Sodium 139 mmol/L (136-145)
[2022-01-28] MEDS: Ezetimibe 10 MG TAB PO SCH (09:52)
[2022-01-28] MEDS: Apixaban 5 MG TAB PO SCH ×2 (09:52→20:46)
[2022-01-28] MEDS: Carvedilol 3.125 MG TAB PO SCH ×2 (09:52→17:00)
[2022-01-28] MEDS: Aspirin Chewable 81 MG TAB PO SCH (09:52)
[2022-01-28] MEDS: Atorvastatin Calcium 40 MG TAB PO SCH (20:46)
[2022-01-29] MEDS: Acetaminophen 325 MG TAB PO PRN ×2 (04:35→20:09)
[2022-01-29 04:40] LABS: Anion Gap 19 mmol/L (10-20); BUN (Urea Nitrogen) 46 mg/dL (9.8-20.1); Calc. Creatinine Clearance 41 mL/min (70-130); Calcium 9.5 mg/dL (7.8-10.44); Carbon Dioxide 21 mmol/L (23-31); Chloride 105 mmol/L (98-107); Estimated GFR 28; Glucose 85 mg/dL (80-115); Potassium 3.5 mmol/L (3.5-5.1); Sodium 141 mmol/L (136-145)
[2022-01-29] MEDS: Furosemide 40 MG/4 ML VIAL SLOW IVP SCH ×2 (06:03→15:23)
[2022-01-29] MEDS: Aspirin Chewable 81 MG TAB PO SCH (10:21)
[2022-01-29] MEDS: Apixaban 5 MG TAB PO SCH ×2 (10:22→20:10)
[2022-01-29] MEDS: Ezetimibe 10 MG TAB PO SCH (10:22)
[2022-01-29 10:25] LABS: #Eosinphils 0.2 thou/uL (0.0-0.7); #Lymphocytes 0.7 thou/uL (1.20-3.40); #Monocytes 0.3 thou/uL (0.11-0.59); #Neutrophils 3.8 thou/uL (1.40-6.50); %Basophils 0.2 % (0.0-1.0); %Lymphocytes 13.3 % (21.0-51.0); %Monocytes 6.7 % (0.0-10.0); %Neutrophils 76.8 % (42.0-75.0); Hemoglobin 11.2 g/dL (12.0-16.0); Mean Corpuscular HGB CONC 30.5 g/dL (32.0-36.0); Mean Corpuscular Hemoglobin 29.2 pg (27.0-31.0); Mean Corpuscular Volume 95.9 fL (78.0-98.0); Mean Platelet Volume 9.4 fL (7.4-10.4); Platelet Count 193 thou/uL (130-400); RBC Distribution Width 16.2 % (11.5-14.5); Red Blood Cell (RBC) Count 3.85 mill/uL (4.20-5.40)
[2022-01-29] MEDS: Carvedilol 3.125 MG TAB PO SCH ×2 (10:26→18:14)
[2022-01-29] MEDS: Atorvastatin Calcium 40 MG TAB PO SCH (20:10)
[2022-01-29] MEDS: Docusate 100 MG CAP PO SCH (20:10)
[2022-01-30] MEDS: Furosemide 40 MG/4 ML VIAL SLOW IVP SCH ×2 (06:25→13:28)
[2022-01-30 06:30] LABS: Eosinophils 6 % (0-10); Hemoglobin 11.6 g/dL (12.0-16.0); Lymphocytes 26 % (21-51); MDiff Complete? YES; Mean Corpuscular HGB CONC 34.3 g/dL (32.0-36.0); Mean Corpuscular Hemoglobin 32.2 pg (27.0-31.0); Mean Platelet Volume 9.9 fL (7.4-10.4); Monocytes 9 % (0-10); Neutrophil 59 % (42-75); Platelet Count 187 thou/uL (130-400); RBC Distribution Width 16.1 % (11.5-14.5); Red Blood Cell (RBC) Count 3.61 mill/uL (4.20-5.40); White Blood Cell (WBC) Count 5.5 thou/uL (4.8-10.8)
[2022-01-30] MEDS: Aspirin Chewable 81 MG TAB PO SCH (09:25)
[2022-01-30] MEDS: Apixaban 5 MG TAB PO SCH ×2 (09:25→21:42)
[2022-01-30] MEDS: Docusate 100 MG CAP PO SCH ×2 (09:25→21:42)
[2022-01-30] MEDS: Polyethylene Glycol 3350 17 GM Packet PO SCH (09:25)
[2022-01-30] MEDS: Carvedilol 3.125 MG TAB PO SCH ×2 (09:25→17:31)
[2022-01-30] MEDS: Ezetimibe 10 MG TAB PO SCH (09:26)
[2022-01-30 10:20] LABS: Anion Gap 20 mmol/L (10-20); BUN (Urea Nitrogen) 38 mg/dL (9.8-20.1); Calc. Creatinine Clearance 46 mL/min (70-130); Calcium 9.9 mg/dL (7.8-10.44); Carbon Dioxide 21 mmol/L (23-31); Chloride 106 mmol/L (98-107); Estimated GFR 32; Glucose 133 mg/dL (80-115); Magnesium 1.6 mg/dL (1.6-2.6); Potassium 4.6 mmol/L (3.5-5.1); Sodium 142 mmol/L (136-145)
[2022-01-30] MEDS: Atorvastatin Calcium 40 MG TAB PO SCH (21:41)
[2022-01-31 05:14] LABS: #Eosinphils 0.2 thou/uL (0.0-0.7); #Monocytes 0.5 thou/uL (0.11-0.59); #Neutrophils 3.9 thou/uL (1.40-6.50); %Basophils 0.1 % (0.0-1.0); %Eosinophils 3.1 % (0.0-10.0); %Monocytes 8.8 % (0.0-10.0); Hemoglobin 10.6 g/dL (12.0-16.0); Mean Corpuscular HGB CONC 30.8 g/dL (32.0-36.0); Mean Corpuscular Volume 94.4 fL (78.0-98.0); Mean Platelet Volume 9.8 fL (7.4-10.4); Platelet Count 186 thou/uL (130-400); Red Blood Cell (RBC) Count 3.63 mill/uL (4.20-5.40); White Blood Cell (WBC) Count 5.6 thou/uL (4.8-10.8)
[2022-01-31 05:33] LABS: Anion Gap 14 mmol/L (10-20); BUN (Urea Nitrogen) 36 mg/dL (9.8-20.1); Calc. Creatinine Clearance 48 mL/min (70-130); Calcium 9.8 mg/dL (7.8-10.44); Carbon Dioxide 28 mmol/L (23-31); Chloride 101 mmol/L (98-107); Estimated GFR 32; Glucose 109 mg/dL (80-115); Potassium 4.1 mmol/L (3.5-5.1); Sodium 139 mmol/L (136-145)
[2022-01-31] MEDS: Furosemide 40 MG/4 ML VIAL SLOW IVP SCH ×2 (06:05→16:19)
[2022-01-31] MEDS: Aspirin Chewable 81 MG TAB PO SCH (07:58)
[2022-01-31] MEDS: Apixaban 5 MG TAB PO SCH ×2 (07:58→21:19)
[2022-01-31] MEDS: Docusate 100 MG CAP PO SCH ×2 (07:58→21:19)
[2022-01-31] MEDS: Ezetimibe 10 MG TAB PO SCH (07:58)
[2022-01-31] MEDS: Polyethylene Glycol 3350 17 GM Packet PO SCH (07:59)
[2022-01-31] MEDS: Carvedilol 3.125 MG TAB PO SCH ×2 (07:59→17:37)
[2022-01-31] MEDS: Atorvastatin Calcium 40 MG TAB PO SCH (21:19)
[2022-02-01 04:40] LABS: #Eosinphils 0.2 thou/uL (0.0-0.7); #Lymphocytes 0.8 thou/uL (1.20-3.40); #Monocytes 0.6 thou/uL (0.11-0.59); #Neutrophils 3.8 thou/uL (1.40-6.50); %Basophils 0.8 % (0.0-1.0); %Eosinophils 3.2 % (0.0-10.0); %Lymphocytes 14.7 % (21.0-51.0); %Monocytes 10.2 % (0.0-10.0); %Neutrophils 71.1 % (42.0-75.0); Hemoglobin 10.5 g/dL (12.0-16.0); Mean Corpuscular Hemoglobin 29.1 pg (27.0-31.0); Mean Corpuscular Volume 93.9 fL (78.0-98.0); Platelet Count 189 thou/uL (130-400); RBC Distribution Width 16.1 % (11.5-14.5); Red Blood Cell (RBC) Count 3.59 mill/uL (4.20-5.40); White Blood Cell (WBC) Count 5.4 thou/uL (4.8-10.8)
[2022-02-01 05:02] LABS: Anion Gap 14 mmol/L (10-20); BUN (Urea Nitrogen) 32 mg/dL (9.8-20.1); Calc. Creatinine Clearance 48 mL/min (70-130); Calcium 10.1 mg/dL (7.8-10.44); Carbon Dioxide 28 mmol/L (23-31); Chloride 101 mmol/L (98-107); Estimated GFR 32; Glucose 124 mg/dL (80-115); Potassium 4.5 mmol/L (3.5-5.1); Sodium 138 mmol/L (136-145)
[2022-02-01] MEDS: Furosemide 40 MG/4 ML VIAL SLOW IVP SCH ×2 (05:46→15:18)
[2022-02-01] MEDS: Docusate 100 MG CAP PO SCH ×2 (09:57→20:52)
[2022-02-01] MEDS: Ezetimibe 10 MG TAB PO SCH (09:57)
[2022-02-01] MEDS: Polyethylene Glycol 3350 17 GM Packet PO SCH (09:57)
[2022-02-01] MEDS: Carvedilol 3.125 MG TAB PO SCH ×2 (09:57→17:33)
[2022-02-01] MEDS: Aspirin Chewable 81 MG TAB PO SCH (09:57)
[2022-02-01] MEDS: Apixaban 5 MG TAB PO SCH ×2 (09:57→20:52)
[2022-02-01] MEDS: Atorvastatin Calcium 40 MG TAB PO SCH (20:51)
[2022-02-02 04:43] LABS: Anion Gap 12 mmol/L (10-20); BUN (Urea Nitrogen) 30 mg/dL (9.8-20.1); Calc. Creatinine Clearance 50 mL/min (70-130); Calcium 10.6 mg/dL (7.8-10.44); Carbon Dioxide 28 mmol/L (23-31); Chloride 100 mmol/L (98-107); Estimated GFR 35; Glucose 110 mg/dL (80-115); Potassium 4.3 mmol/L (3.5-5.1); Sodium 136 mmol/L (136-145)
[2022-02-02] MEDS: Carvedilol 3.125 MG TAB PO SCH ×2 (10:11→16:04)
[2022-02-02] MEDS: Furosemide 80 MG TAB PO SCH (10:11)
[2022-02-02] MEDS: Docusate 100 MG CAP PO SCH ×2 (10:11→20:51)
[2022-02-02] MEDS: Apixaban 5 MG TAB PO SCH ×2 (10:11→20:51)
[2022-02-02] MEDS: Aspirin Chewable 81 MG TAB PO SCH (10:11)
[2022-02-02] MEDS: Ezetimibe 10 MG TAB PO SCH (10:12)
[2022-02-02] MEDS: Polyethylene Glycol 3350 17 GM Packet PO SCH (10:15)
[2022-02-02] MEDS: Furosemide 40 MG TAB PO SCH (14:28)
[2022-02-02] MEDS: Atorvastatin Calcium 40 MG TAB PO SCH (20:50)
[2022-02-03 07:26] LABS: Anion Gap 14 mmol/L (10-20); BUN (Urea Nitrogen) 28 mg/dL (9.8-20.1); Calc. Creatinine Clearance 0 mL/min (70-130); Calcium 10.3 mg/dL (7.8-10.44); Carbon Dioxide 25 mmol/L (23-31); Chloride 103 mmol/L (98-107); Estimated GFR 40; Glucose 113 mg/dL (80-115); Potassium 3.9 mmol/L (3.5-5.1); Sodium 138 mmol/L (136-145)
[2022-02-03] MEDS: Carvedilol 3.125 MG TAB PO SCH ×2 (09:17→17:18)
[2022-02-03] MEDS: Polyethylene Glycol 3350 17 GM Packet PO SCH (09:17)
[2022-02-03] MEDS: Ezetimibe 10 MG TAB PO SCH (09:19)
[2022-02-03] MEDS: Furosemide 80 MG TAB PO SCH (09:19)
[2022-02-03] MEDS: Aspirin Chewable 81 MG TAB PO SCH (09:19)
[2022-02-03] MEDS: Docusate 100 MG CAP PO SCH ×2 (09:19→20:09)
[2022-02-03] MEDS: Apixaban 5 MG TAB PO SCH ×2 (09:19→20:10)
[2022-02-03] MEDS: Furosemide 40 MG TAB PO SCH (15:03)
[2022-02-03] MEDS: Atorvastatin Calcium 40 MG TAB PO SCH (20:09)
[2022-02-03] MEDS: Acetaminophen 325 MG TAB PO PRN (20:10)
[2022-02-04] MEDS: Aspirin Chewable 81 MG TAB PO SCH (10:23)
[2022-02-04] MEDS: Furosemide 80 MG TAB PO SCH (10:23)
[2022-02-04] MEDS: Ezetimibe 10 MG TAB PO SCH (10:24)
[2022-02-04] MEDS: Docusate 100 MG CAP PO SCH ×2 (10:24→20:42)
[2022-02-04] MEDS: Apixaban 5 MG TAB PO SCH ×2 (10:24→20:43)
[2022-02-04] MEDS: Carvedilol 3.125 MG TAB PO SCH ×2 (10:24→16:15)
[2022-02-04] MEDS: Polyethylene Glycol 3350 17 GM Packet PO SCH (10:26)
[2022-02-04] MEDS: Furosemide 40 MG TAB PO SCH (14:36)
[2022-02-04 19:50] LABS: Anion Gap 12 mmol/L (10-20); BUN (Urea Nitrogen) 27 mg/dL (9.8-20.1); Calc. Creatinine Clearance 48 mL/min (70-130); Calcium 10.3 mg/dL (7.8-10.44); Carbon Dioxide 29 mmol/L (23-31); Chloride 101 mmol/L (98-107); Estimated GFR 34; Glucose 141 mg/dL (80-115); Sodium 138 mmol/L (136-145)
[2022-02-04] MEDS: Atorvastatin Calcium 40 MG TAB PO SCH (20:42)
[2022-02-04] MEDS: Acetaminophen 325 MG TAB PO PRN (20:43)
[2022-02-05 07:13] LABS: Anion Gap 12 mmol/L (10-20); BUN (Urea Nitrogen) 30 mg/dL (9.8-20.1); Calc. Creatinine Clearance 54 mL/min (70-130); Calcium 10.8 mg/dL (7.8-10.44); Carbon Dioxide 29 mmol/L (23-31); Chloride 104 mmol/L (98-107); Estimated GFR 39; Glucose 105 mg/dL (80-115); Potassium 4.4 mmol/L (3.5-5.1); Sodium 141 mmol/L (136-145)
[2022-02-05] MEDS: Aspirin Chewable 81 MG TAB PO SCH (08:48)
[2022-02-05] MEDS: Docusate 100 MG CAP PO SCH ×2 (08:48→20:56)
[2022-02-05] MEDS: Furosemide 80 MG TAB PO SCH (08:48)
[2022-02-05] MEDS: Apixaban 5 MG TAB PO SCH ×2 (08:48→20:56)
[2022-02-05] MEDS: Carvedilol 3.125 MG TAB PO SCH ×2 (08:49→16:25)
[2022-02-05] MEDS: Ezetimibe 10 MG TAB PO SCH (08:49)
[2022-02-05] MEDS: Polyethylene Glycol 3350 17 GM Packet PO SCH (08:53)
[2022-02-05] MEDS: Furosemide 40 MG TAB PO SCH (15:07)
[2022-02-05] MEDS: Atorvastatin Calcium 40 MG TAB PO SCH (20:56)
[2022-02-06] MEDS: Acetaminophen 325 MG TAB PO PRN ×2 (01:19→11:28)
[2022-02-06 08:01] VITALS: BP 106/59; TEMP 97.4
[2022-02-06] MEDS: Ezetimibe 10 MG TAB PO SCH (08:34)
[2022-02-06] MEDS: Aspirin Chewable 81 MG TAB PO SCH (08:34)
[2022-02-06] MEDS: Polyethylene Glycol 3350 17 GM Packet PO SCH (08:34)
[2022-02-06] MEDS: Docusate 100 MG CAP PO SCH (08:34)
[2022-02-06] MEDS: Furosemide 80 MG TAB PO SCH (08:34)
[2022-02-06] MEDS: Apixaban 5 MG TAB PO SCH (08:34)
[2022-02-06] MEDS: Carvedilol 3.125 MG TAB PO SCH (08:35)
[2022-02-06 08:58] LABS: #Eosinphils 0.2 thou/uL (0.0-0.7); #Lymphocytes 0.9 thou/uL (1.20-3.40); #Monocytes 0.4 thou/uL (0.11-0.59); #Neutrophils 2.9 thou/uL (1.40-6.50); %Basophils 0.8 % (0.0-1.0); %Eosinophils 3.9 % (0.0-10.0); %Lymphocytes 19.6 % (21.0-51.0); %Monocytes 9.2 % (0.0-10.0); %Neutrophils 66.5 % (42.0-75.0); Hemoglobin 10.2 g/dL (12.0-16.0); Mean Corpuscular HGB CONC 30.6 g/dL (32.0-36.0); Mean Corpuscular Volume 94.8 fL (78.0-98.0); Mean Platelet Volume 10.4 fL (7.4-10.4); Platelet Count 164 thou/uL (130-400); RBC Distribution Width 16.4 % (11.5-14.5); Red Blood Cell (RBC) Count 3.51 mill/uL (4.20-5.40); White Blood Cell (WBC) Count 4.4 thou/uL (4.8-10.8)
[2022-02-06 09:10] LABS: Hemoglobin A1c 6.1 % (4.0-6.0)
[2022-02-06 09:16] LABS: ALT (SGPT) 29 U/L (8-55); AST (SGOT) 15 U/L (5-34); Albumin 3.2 g/dL (3.4-4.8); Alkaline Phosphatase 134 U/L (40-110); Anion Gap 12 mmol/L (10-20); BUN (Urea Nitrogen) 26 mg/dL (9.8-20.1); Bilirubin, Total 1.3 mg/dL (0.2-1.2); Calc. Creatinine Clearance 56 mL/min (70-130); Calcium 11.2 mg/dL (7.8-10.44); Carbon Dioxide 28 mmol/L (23-31); Chloride 103 mmol/L (98-107); Estimated GFR 40; Glucose 104 mg/dL (80-115); Potassium 4.6 mmol/L (3.5-5.1); Protein, Total 6.2 g/dL (5.8-8.1); Sodium 138 mmol/L (136-145)
[2022-02-06] MEDS: Furosemide 40 MG TAB PO SCH (14:02)
[2022-02-06] MEDS ORDERED: traMADol HCl 50 MG TAB PO PRN (14:15)
== END 2022-02-06 15:49 | DRG 291 ==
LOC: ERS 19:40 → 2NO 21:58 → ERS 01-27 00:18 → OBSVTOIN 01-28 14:20 → T4-B 02-02 18:46
PROVIDERS: ADMIT Internal Medicine; ATTEND Family Medicine
PROC: 4B02XTZ Measurement of Cardiac Defibrillator, External Approach (ICD-10-PCS; principal; 2022-01-27)
DX: I13.0 Hypertensive heart and chronic kidney disease with heart failure and stage 1 through stage 4 chronic kidney disease, or unspecified chronic kidney disease (principal); Z20.822 Contact with and (suspected) exposure to COVID-19; I50.23 Acute on chronic systolic (congestive) heart failure; J96.20 Acute and chronic respiratory failure, unspecified whether with hypoxia or hypercapnia; I47.2 Ventricular tachycardia; N17.9 Acute kidney failure, unspecified; I48.0 Paroxysmal atrial fibrillation; E11.22 Type 2 diabetes mellitus with diabetic chronic kidney disease; F17.210 Nicotine dependence, cigarettes, uncomplicated; I25.10 Atherosclerotic heart disease of native coronary artery without angina pectoris; I34.0 Nonrheumatic mitral (valve) insufficiency; E78.00 Pure hypercholesterolemia, unspecified; I25.5 Ischemic cardiomyopathy; N18.31 Chronic kidney disease, stage 3a; Z86.73 Personal history of transient ischemic attack (TIA), and cerebral infarction without residual deficits; Z95.810 Presence of automatic (implantable) cardiac defibrillator; Z79.899 Other long term (current) drug therapy; Z79.01 Long term (current) use of anticoagulants; Z95.1 Presence of aortocoronary bypass graft; Z90.710 Acquired absence of both cervix and uterus; Z83.3 Family history of diabetes mellitus; Z82.49 Family history of ischemic heart disease and other diseases of the circulatory system; Z71.6 Tobacco abuse counseling
CPT/HCPCS: 36415; 36416; 70450; 71045; 80048; 80053; 82553; 83036; 83735; 83880; 84443; 84484; 85025; 93005; 93798; 93880; 94760; 96372; 96374; 96376; G0378; J1650; J1940; U0003; U0005

== ENCOUNTER 2022-03-05 04:57 | Emergency (ER) | payer OTHER, MEDICAID ==
[2022-03-05 05:32] LABS: #Eosinphils 0.2 thou/uL (0.0-0.7); #Lymphocytes 1.1 thou/uL (1.20-3.40); #Monocytes 0.4 thou/uL (0.11-0.59); #Neutrophils 3.9 thou/uL (1.40-6.50); %Basophils 0.3 % (0.0-1.0); %Eosinophils 3.1 % (0.0-10.0); %Lymphocytes 20.2 % (21.0-51.0); %Monocytes 6.3 % (0.0-10.0); %Neutrophils 70.2 % (42.0-75.0); Hemoglobin 10.8 g/dL (12.0-16.0); Mean Corpuscular HGB CONC 31.7 g/dL (32.0-36.0); Mean Corpuscular Hemoglobin 31.2 pg (27.0-31.0); Mean Corpuscular Volume 98.1 fL (78.0-98.0); Mean Platelet Volume 9.1 fL (7.4-10.4); Platelet Count 247 thou/uL (130-400); RBC Distribution Width 16.3 % (11.5-14.5); Red Blood Cell (RBC) Count 3.45 mill/uL (4.20-5.40); White Blood Cell (WBC) Count 5.6 thou/uL (4.8-10.8)
[2022-03-05 05:50] LABS: ALT (SGPT) 13 U/L (8-55); AST (SGOT) 15 U/L (5-34); Albumin 3.4 g/dL (3.4-4.8); Alkaline Phosphatase 106 U/L (40-110); Anion Gap 13 mmol/L (10-20); BUN (Urea Nitrogen) 32 mg/dL (9.8-20.1); Bilirubin, Total 1.5 mg/dL (0.2-1.2); Calc. Creatinine Clearance 0 mL/min (70-130); Calcium 11.1 mg/dL (7.8-10.44); Carbon Dioxide 27 mmol/L (23-31); Chloride 102 mmol/L (98-107); Estimated GFR 28; Globulin 3.2 g/dL (2.4-3.5); Glucose 160 mg/dL (80-115); Lipase 54 U/L (8-78); Potassium 4.4 mmol/L (3.5-5.1); Protein, Total 6.6 g/dL (5.8-8.1); Sodium 138 mmol/L (136-145)
[2022-03-05] MEDS ORDERED: Ondansetron ODT 8 MG TAB ONE (06:09)
[2022-03-05 06:13] LABS: CKMB 1.6 ng/mL (0-6.6)
[2022-03-05 07:25] LABS: Bacteria/HPF 4+ HPF (None Seen); Bilirubin Negative (Negative); Blood, Urine 1+ (Negative); Clarity Turbid (Clear); Glucose, Urine (Dipstick) Normal (Negative); Ketone, Urine Negative (Negative); Leukocyte 500 Leu/uL (Negative); Nitrite Negative (Negative); Protein, Urine (Dipstick) 100 mg/dL (Neg-Trace); Specific Gravity, Urine 1.012 (1.002-1.036); Squamous Epithelial 0-3 HPF (0-3); WBC/HPF Greater than 50 HPF (0-3)
== END 2022-03-05 08:55 | disposition short-term general hospital (02) ==
LOC: ERS 04:57
DX: N39.0 Urinary tract infection, site not specified (principal); E11.9 Type 2 diabetes mellitus without complications; E78.5 Hyperlipidemia, unspecified; E78.00 Pure hypercholesterolemia, unspecified; I10 Essential (primary) hypertension; J42 Unspecified chronic bronchitis; Z86.73 Personal history of transient ischemic attack (TIA), and cerebral infarction without residual deficits; Z87.891 Personal history of nicotine dependence; Z79.899 Other long term (current) drug therapy
CPT/HCPCS: 36415; 51701; 71045; 80053; 81003; 81015; 82553; 83690; 83880; 84484; 85025; 87077; 87086; 87186; 93005; Q0162